=== PATIENT | female | born 1960 | race Caucasian/White ===

== ENCOUNTER 2025-02-08 15:31 | Inpatient (IN) | payer OTHER, SELFPAY ==
[2025-02-08 15:50] VITALS: BP 114/57; PULSE 95; RESP 16; TEMP 36.8; O2SAT 97; BMI 16.0
--- OUTSIDE RECORDS SUMMARY | 2025-02-08 17:47 | XMS_ITS | Encounter Summary ---
[facility] Organization 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 Name Role Phone Bruno Roberts Primary Care Provider [phone] Encounter Details Date Type Department Care Team (Late st Contact Info) Description 10/02/2024 Lab Requisition [facility] - Main Lab [address] [facility] [place] [address] Mansoor Kwok MD [address] [place] [phone] Essential (primary) hypertension Social History Tobacco Use Types Packs/Day Years Used Date Smoking Tobacco: Former Cigarettes 1 24.4 0 08/24/1982 - 01/22/2007 Smokeless Tobacco: Never Alcohol Use Standard Drinks/Week Comments Not Currently 0 (1 standard drink = 0.6 oz pur e alcohol) Interpersonal Safety Answer Date Record ed Physical Abuse 09/17/2024 Verbal Abuse 09/17/2024 Comments Unknown Sex and Gender Information Value Date Recorded Sex Assigned at Female 09/16/2024 11:04 PM EST Legal Sex Female 3:54 PM EST Gender Identity Female 09/16/2024 11:04 PM EST Sexual Orientation Straight 09/16/2024 11 :04 PM EST documented as of this encounter Plan of Treatment Upcoming Encounters Date Type Department Care Team (Late st Contact Info) Description 03/14/2025 3:00 PM EDT Office Visit Adult Medicine [facility] [address] [place] [phone] Bruno Roberts PA [address] [place] [address] 04/12/2025 2:10 PM EDT Appointment Radiology Department - [address] [phone] documented as of this encounter Visit Diagnoses Diagnosis Essential (primary) hypertension Unspecified essential hypertension Encounter for screening mammogram for breast cancer documented in this encounter Care Teams Aquaculture Worker Relationship Specialty Start Date End Date Bruno Roberts PA [address] [place] [id number] PCP - General Internal Medicine 09/16/24 documented as of this encounter
[2025-02-08] MEDS: hydrOXYzine HCL 25 MG TABLET PO (18:09)
--- NOTE | 2025-02-08 18:48 | PC.ADMIT ---
Pt arrived to the unit at 1536 from [facility] via stretcher. Skin/safety performed and unremarkable, vitals obtained and pt oriented to unit. Pt has a signed and accepted CV and is on 15min checks. Pt reports she is crawling out of her skin with anxiety and states ?I just don?t know what to do with myself?. Pt was brought to [facility] ED by her friend/housemate with concerns the pts was anxious and restless with increased agitation. Pt was admitted to inpatient psychiatric facility in [place], [place] last month for similar presentation to which pt reports ?they switched all my meds, took me off everything and just gave me stuff for anxiety. Maybe I?m just confused, I?m not really sure? This does not appear to be the case according to med list acquired from [place], [place]. Pt in fact had numerous medications filled on 02/06/25.? Pt presents as nervous, suspicious and apprehensive. She reports ?not knowing what to do with myself? and states ?I am crawling out of my skin?. She rates her anxiety 9/10, depression /10 and denies SI/HI/AVH. She also states her sleep and appetite have been poor and believes she has lost ?about 30lbs since August?. Tox screen negative and she is not a smoker. She denies medical issues but is currently prescribed midodrine. BP on admission 114/57.? Her admission is complete, other than signing BELIA?s, safety tool, and treatment plan.?
[2025-02-08 20:00] VITALS: BP 108/64; PULSE 100; RESP 16; TEMP 36.4; O2SAT 100
[2025-02-08] MEDS: clonazePAM 1 MG TABLET PO (20:13)
[2025-02-08] MEDS: lamoTRIgine 25 MG TABLET PO (20:14)
[2025-02-08] MEDS: lamoTRIgine 25 MG TABLET 150 MG PO (20:14)
[2025-02-08] MEDS: Mirtazapine 7.5 MG TABLET PO (20:15)
[2025-02-08] MEDS: traZODone HCL 50 MG TABLET PO (23:11)
[2025-02-09] MEDS: traZODone HCL 50 MG TABLET PO ×2 (01:33→20:38)
[2025-02-09] MEDS: hydrOXYzine HCL 25 MG TABLET PO ×2 (01:33→09:25)
[2025-02-09 08:00] VITALS: BP 109/55; PULSE 100; RESP 16; TEMP 36.4; O2SAT 100
[2025-02-09 08:23] LABS: Estimated Average Glucose 126 mg/dL; Total Hemoglobin (HGBA1C) 3274.8842 umol/L
[2025-02-09 08:42] LABS: Cholesterol 170 mg/dL (<200); HDL Cholesterol 53 mg/dL (>40); LDL Cholesterol Calculated 105 mg/dL (<100); Magnesium 2.5 mg/dL (1.6-2.6); Triglycerides 64 mg/dL (<150)
[2025-02-09] MEDS: Sertraline HCL 100 MG TABLET 200 MG PO (08:44)
[2025-02-09 08:45] VITALS: BP 109/55
[2025-02-09] MEDS: lamoTRIgine 25 MG TABLET 150 MG PO ×2 (08:45→20:39)
[2025-02-09] MEDS: Venlafaxine HCl ER 37.5 MG CAP.ER.24H PO (08:45)
[2025-02-09] MEDS: Midodrine HCl 2.5 MG TABLET PO ×3 (08:45→17:13)
[2025-02-09] MEDS: ARIPiprazole 5 MG TABLET PO (08:45)
[2025-02-09] MEDS: buPROPion HCl XL 300 MG TAB.ER.24H PO (08:45)
[2025-02-09] MEDS: lamoTRIgine 25 MG TABLET PO ×2 (08:46→20:38)
[2025-02-09 08:59] LABS: Free T4 (Free Thyroxine) 1.24 ng/dL (0.71-1.85); Thyroid Stimulating Hormone 1.42 uIU/mL (0.32-4.0)
[2025-02-09 09:10] LABS: Folate 9.2 ng/mL (> or = 4.0); Vitamin B12 758 pg/mL (200-900)
--- NOTE | 2025-02-09 09:22 | P.CONHOSP_ITS ---
History of Present Illness Data of Consult Service Date: 02/09/25 Primary Care Provider: Unknown Physician HPI Reason for consult: Medical evaluation 64-year-old female with a past medical history of anxiety and depression is admitted to [facility] after increased anxiety, restlessness and lack of sleep. Patient reports she was inpatient psych, was discharged in was unable to get her medications as prescribed, she represents for treatment of increased depression and anxiety. She denies any medical conditions, reports a history of a fractured elbow with a repair. On exam she is alert and cooperative, denies any shortness of breath, dizziness lightheadedness or any other concerning symptoms. Denies any headaches. She reports she did not sleep last night as she had difficulty with the new environment. At [facility] ED her EKG was stable with no ischemia, and if negative tox screen, negative UA, CBC and BMP were all within normal limits. Review of Systems Review of Systems: Denies any shortness of breath, chest pain, dizziness, lightheadedness, abdominal pain or discomfort, nausea vomiting or diarrhea PMFSH Social History Household Members: Friend(s) Housing: Apartment Do you presently have visiting nurse or other home services: No Patient Tobacco Use Status: Never used Tobacco Currently Displaying Signs/Symptoms of Drug Intoxication Withdrawal: No Have you been hit, kicked, punched, or otherwise hurt by someone within the past year? If so, by whom?: No Do you feel safe in your current relationship?: No Is there a partner from a previous relationship who is making you feel unsafe now?: No Are you made to feel afraid or neglected: No Spiritual Healthcare Practices: Mosque Advance Directives: No Advance Directives Information Provided: Yes Do you have thoughts of harming others: None Do you have a plan to hurt others: No Plan Recently lost weight without trying: Yes How much weight loss: 24-33 pounds Eating poorly because of decreased appetite: Yes Nutrition screen score: 6 Nutrition Risks: Poor intake 0-25% >4 days Patient : No : No Poor oral hygiene: No Meds Allergies Allergy/AdvReac Type Severity Reaction Status Date / Time No Known Allergies Allergy Verified 02/08/25 10:36 Active Medications: Current Medications Acetaminophen (Acetaminophen 325 Mg Tablet) 650 mg PO Q6H PRN PRN Reason: Headache/Pain, Scale 1-10 Al Hydroxide/Mg Hydroxide (Magnesium Hydrox/Alum Hydrox 30 Ml Oral.Susp) 30 ml PO Q6H PRN PRN Reason: Heartburn/Nausea Aripiprazole (Aripiprazole 5 Mg Tablet) 5 mg PO DAILY [facility] Last Admin: 02/09/25 08:45 Dose: 5 mg Bupropion HCl (Bupropion Hcl Xl 300 Mg Tab.Er.24h) 300 mg PO DAILY [facility] Last Admin: 02/09/25 08:45 Dose: 300 mg Clonazepam (Clonazepam 1 Mg Tablet) 1 mg PO TID PRN PRN Reason: Anxiety Last Admin: 02/08/25 20:13 Dose: 1 mg Hydroxyzine HCl (Hydroxyzine Hcl 25 Mg Tablet) 25 mg PO Q6H PRN PRN Reason: mild anxiety Last Admin: 02/09/25 01:33 Dose: 25 mg Lamotrigine (Lamotrigine 25 Mg Tablet) 150 mg PO BID [facility] Last Admin: 02/09/25 08:45 Dose: 150 mg Lamotrigine (Lamotrigine 25 Mg Tablet) 25 mg PO BID [facility] Last Admin: 02/09/25 08:46 Dose: 25 mg Magnesium Hydroxide (Milk Of Magnesia 30 Ml Oral.Susp) 30 ml PO DAILY PRN PRN Reason: Constipation Midodrine (Midodrine Hcl 2.5 Mg Tablet) 2.5 mg PO TIDWM [facility] Last Admin: 02/09/25 08:45 Dose: 2.5 mg Mirtazapine (Mirtazapine 7.5 Mg Tablet) 7.5 mg PO BEDTIME [facility] Last Admin: 02/08/25 20:15 Dose: 7.5 mg Nicotine Polacrilex (Nicotine Polacrilex 2 Mg Gum) 4 mg BUCCAL Q2H PRN PRN Reason: Nicotine Cravings Sertraline HCl (Sertraline Hcl 100 Mg Tablet) 200 mg PO DAILY [facility] Last Admin: 02/09/25 08:44 Dose: 200 mg Trazodone HCl (Trazodone Hcl 50 Mg Tablet) 50 mg PO BEDTIME MRX1 PRN PRN Reason: Insomnia Last Admin: 02/09/25 01:33 Dose: 50 mg Venlafaxine HCl (Venlafaxine Hcl Er 37.5 Mg Cap.Er.24h) 37.5 mg PO DAILY [facility] Last Admin: 02/09/25 08:45 Dose: 37.5 mg Home Medications ?Medication ?Instructions ?Recorded ?Confirmed ?Last Taken ?Type aripiprazole 5 mg tablet 5 mg PO DAILY 02/08/2502/08 Unknown History bupropion HCl 300 mg 24 hr tablet, 300 mg PO QAM 02/0802/08/25 Unknown History extended release clonazepam 1 mg tablet 1 mg PO TID PRN Anxiety 01/2202/08/25 Unknown History lamotrigine 150 mg tablet 150 mg PO BID 02/08/2502/08 Unknown History lamotrigine 25 mg tablet 25 mg PO BID 02/08/25 Unknown History midodrine 2.5 mg tablet 2.5 mg PO TIDWM 02/08/25 Unknown History mirtazapine 7.5 mg tablet 7.5 mg PO BEDTIME 02/08/25 0 02/08/25 Unknown History sertraline 200 mg capsule 200 mg PO DAILY 02/08/25 Unknown History trazodone 50 mg tablet 50 mg PO BEDTIME 02/08/25 Unknown History venlafaxine 37.5 mg tablet 37.5 mg PO DAILY 02/08/25 0 02/08/25 Unknown History Physical Exam Vital Signs and Narrative: Vital Signs: Last Vital Signs Temp 97.6 F 02/08/25 20:00 Pulse 100 02/08/25 20:00 Resp 16 02/08/25 20:00 BP 109/55 L 02/09/25 08:45 Pulse Ox 100 02/08/25 20:00 O2 Del Method Room Air 02/08/25 20:00 BMI result Body Mass Index 16.0 Alert and oriented X3, able to give good history. Anxious. Cachetic female Neuro: CN II-X11 intact, no deficits, visual acuity intact EYES: PERRLA, EOM intact ENT: Hearing intact, lips moist Cardiac: S1 S2 RRR, No ectopy Pulmonary: lungs clear to auscultation, No increased WOB. Abdominal: BS active in all 4 quadrants, no guarding or tenderness MSK: Strength 5/5 upper and lower extremities : Deferred Extremities: No edema in lower extremities, PT and DP pulses palpable +2 Psych: mood stable, Anxious. Eyes darting around room, speech rapid. Skin: Warm and dry, Intact Results Labs Labs: Laboratory Results - last 24 hr 02/09/25 07:58 Estimat Average Glucose 126 Hemoglobin A1c % 6.0 Magnesium 2.5 Triglycerides 64 Cholesterol 170 LDL Cholesterol, Calc 105 H HDL Cholesterol 53 Vitamin B12 758 Folate 9.2 TSH 1.42 Free T4 1.24 Assessment and Plan (1) Major depressive disorder: Status: Acute Plan Depression and anxiety Treatment per psychiatric team Thank you for allowing me to participate in the care of this patient. Signing off at this time. Please reconsult of any acute concerns or issues arise
[2025-02-09] MEDS: clonazePAM 1 MG TABLET PO ×2 (10:34→20:39)
--- NOTE | 2025-02-09 11:04 | HO.PSYADMNOT ---
HPI Date of Service: 02/09/25 Chief Complaint: unspecified depressive disorder Sources of Information: patient interviewed, chart reviewed and crisis/core team assessment reviewed Additional Sources of Information: Seen 1145am HPI Subjective Notes: Lam Warning and Conditional Voluntary Healthcare Proxy: No Guardianship: No Medical Problems Affecting Mental Status: No Narrative: 64 yo female, hx of anxiety, depression, transfer from [facility] with reports of increase in symptoms with agitation. Pt and her room-mate tell crisis she has been agitated, unable to sit still. Recent admit to [facility] for similiar sx. Reports being off meds for 4-6 weeks. Review of regime with pt and she affirmed compliance with most of regime since [facility] discharge. She reports continuing Klonopin/Trazodone. She requested a voluntary admission to address med issues. Pt reports a history of depression/anxiety >10 years with sleep always having been a problem. Past Psychiatric History: IP: Hx of 2 admits OP: CC- Ann Kitchen MD, Malia Mcknight Trials: Affirms several trials Medical Evaluation Reviewed: Yes PMFSH Family History: Alcohol Use, Depression Social History: Born in [place]. family, raised in [place]. 2 brothers, one . Brother in [facility] with poor vision-pt tries to be helpful to him. 40 years, no children. 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 Enjoyed direct care a great deal. Now lives with a house mate, Natali Low. Substance History: Denies Trauma History: Affirms Diagnostics Vital Signs (24Hr): Vital Signs - 24 hr 02/08/25 15:50 02/08/25 20:00 02/09/25 08:00 Temperature 98.2 F 97.6 F 97.5 F Pulse Rate 95 100 100 Respiratory Rate 16 16 16 Blood Pressure 114/57 L 108/64 109/55 L Pulse Oximetry 97 100 100 Oxygen Delivery Method Room Air Room Air Room Air 02/09/25 08:45 Temperature Pulse Rate Respiratory Rate Blood Pressure 109/55 L Pulse Oximetry Oxygen Delivery Method BMI result Body Mass Index 16.0 Labs Labs: Laboratory Results - last 48 hr 02/09/25 07:58 Estimat Average Glucose 126 Hemoglobin A1c % 6.0 Magnesium 2.5 Triglycerides 64 Cholesterol 170 LDL Cholesterol, Calc 105 H HDL Cholesterol 53 Vitamin B12 758 Folate 9.2 TSH 1.42 Free T4 1.24 CBC 02/07 WNL CMP 02/07 WNL EKG EKG: reviewed EKG Comment: NSR QTc 408 ST and T wave abn, consider inferior ischemia and anterolateral ischemia Meds/Allergies Meds Home Medications ?Medication ?Instructions ?Recorded ?Confirmed ?Type aripiprazole 5 mg tablet 5 mg PO DAILY 02/08/25 02/08/25 History bupropion HCl 300 mg 24 hr tablet, 300 mg PO QAM 02/08/25 02/08/25 History extended release clonazepam 1 mg tablet 1 mg PO TID PRN Anxiety 02/08/25 02/08/25 History lamotrigine 150 mg tablet 150 mg PO BID 02/08/25 02/08/25 History lamotrigine 25 mg tablet 25 mg PO BID 02/08/25 02/08/25 History midodrine 2.5 mg tablet 2.5 mg PO TIDWM 02/08/25 02/08/25 History mirtazapine 7.5 mg tablet 7.5 mg PO BEDTIME 02/08/25 02/08/25 History sertraline 200 mg capsule 200 mg PO DAILY 02/08/25 02/08/25 History trazodone 50 mg tablet 50 mg PO BEDTIME 02/08/25 02/08/25 History venlafaxine 37.5 mg tablet 37.5 mg PO DAILY 02/08/25 02/08/25 History Allergies Allergies Allergy/AdvReac Type Severity Reaction Status Date / Time No Known Allergies Allergy Verified 02/08/25 10:36 Mental Status Exam Mental Status Exam Patient Appearance: Fatigued Patient Orientation: Person, Place, Time and Situation Level of Consciousness: Alert Patient Behavior: Appropriate, Talkative and Cooperative Mood Description: Withdrawn, Depressed and Anxious Affect Description: Flat Patient Cognition Impaired: No Ability to Follow Directions: Good Speech Pattern: Spontaneous Speech Memory Description: Episodic Impaired Hallucinations: None Delusions: Not Present Perceptual Disturbances: Depersonalization Thought Process: Rumination Thought Content: positive for Circumstantial, positive for Perseveration and positive for Suicidal Ideation (denies) Depressive Symptoms: Increased Anxiety and Loss of Energy Judgement: Fair Assessment & Plan Assessment & Plan (1) Major depressive disorder: Status: Acute Code(s): F32.9 - Major depressive disorder, single episode, unspecified Plan Admit, CV, 15 minute checks Diagnostics as needed Collateral Contacts Encourage full milieu to increase strength in coping Continue current regime today Patient educated on: medication risk/benefits Reason for continued inpatient stay Substantial Risk for: rapid decompensation Statement Statement: I have reviewed the history and physical and performed a pertinent examination on my patient. No changes have occurred unless specified. If the History and Physical was not performed prior to admission, the Hospitalist's service will be consulted for completing the admission physical. Time Spent With Patient Time: Total time managing care of this patient today ____ minutes.
[2025-02-09 12:37] VITALS: BP 113/76
[2025-02-09 17:13] VITALS: BP 110/72
[2025-02-09 20:00] VITALS: BP 118/60; PULSE 86; RESP 16; TEMP 36.1; O2SAT 97
[2025-02-09] MEDS: Mirtazapine 7.5 MG TABLET PO (20:38)
[2025-02-10 08:00] VITALS: BP 103/53; PULSE 62; RESP 16; TEMP 36.7; O2SAT 97
[2025-02-10 09:33] VITALS: BP 103/53
[2025-02-10] MEDS: buPROPion HCl XL 300 MG TAB.ER.24H PO (09:33)
[2025-02-10] MEDS: Sertraline HCL 100 MG TABLET 200 MG PO (09:33)
[2025-02-10] MEDS: Midodrine HCl 2.5 MG TABLET PO ×3 (09:33→19:27)
[2025-02-10] MEDS: lamoTRIgine 25 MG TABLET PO ×2 (09:34→20:48)
[2025-02-10] MEDS: lamoTRIgine 25 MG TABLET 150 MG PO ×2 (09:34→20:47)
[2025-02-10] MEDS: Venlafaxine HCl ER 37.5 MG CAP.ER.24H PO (09:34)
[2025-02-10] MEDS: ARIPiprazole 5 MG TABLET PO (09:34)
[2025-02-10] MEDS: clonazePAM 1 MG TABLET PO ×2 (09:36→20:50)
[2025-02-10 13:03] VITALS: BP 112/57
--- NOTE | 2025-02-10 15:17 | P.PNPSI_ITS ---
Subjective Subjective Date of Service: 02/10/25 Reason For Visit: unspecified depressive disorder Subjective Notes: Conditional Voluntary Healthcare Proxy: No Guardianship: No Medical Problems Affecting Mental Status: No Interim History: Review of medications, rationale, efficacy. Discussed DC of Venlafaxine and increase of Mirtazapine which pt was agreeable with Medication Compliance: Yes Side effects from medications: No Attending Groups: Intermittent Review of Systems Acute medical concerns: No Medical Review of Systems: unchanged Review of Systems Review of Systems anxiety Mental Status Exam Mental Status Exam Patient Appearance: Fatigued Patient Orientation: Person, Place, Time and Situation Level of Consciousness: Alert Patient Behavior: Appropriate, Talkative and Cooperative Mood Description: Withdrawn, Depressed and Anxious Affect Description: Flat Patient Cognition Impaired: No Ability to Follow Directions: Good Speech Pattern: Spontaneous Speech Memory Description: Episodic Impaired Hallucinations: None Delusions: Not Present Perceptual Disturbances: Depersonalization Thought Process: Rumination Thought Content: positive for Circumstantial, positive for Perseveration and positive for Suicidal Ideation (denies) Depressive Symptoms: Increased Anxiety and Loss of Energy Judgement: Fair Diagnostics Vital Signs (24Hr): Vital Signs - 24 hr 02/09/25 17:13 02/09/25 20:00 02/10/25 08:00 Temperature 96.9 F 98.1 F Pulse Rate 86 62 Respiratory Rate 16 16 Blood Pressure 110/72 118/60 103/53 L Pulse Oximetry 97 97 Oxygen Delivery Method Room Air Room Air 02/10/25 09:33 02/10/25 13:03 Temperature Pulse Rate Respiratory Rate Blood Pressure 103/53 L 112/57 L Pulse Oximetry Oxygen Delivery Method BMI result Body Mass Index 16.0 Labs Labs: Laboratory Results - last 48 hr 02/09/25 07:58 Estimat Average Glucose 126 Hemoglobin A1c % 6.0 Magnesium 2.5 Triglycerides 64 Cholesterol 170 LDL Cholesterol, Calc 105 H HDL Cholesterol 53 Vitamin B12 758 Folate 9.2 TSH 1.42 Free T4 1.24 Medications Medications Current Medications Acetaminophen (Acetaminophen 325 Mg Tablet) 650 mg PO Q6H PRN PRN Reason: Headache/Pain, Scale 1-10 Al Hydroxide/Mg Hydroxide (Magnesium Hydrox/Alum Hydrox 30 Ml Oral.Susp) 30 ml PO Q6H PRN PRN Reason: Heartburn/Nausea Aripiprazole (Aripiprazole 5 Mg Tablet) 5 mg PO DAILY [facility] Last Admin: 02/10/25 09:34 Dose: 5 mg Bupropion HCl (Bupropion Hcl Xl 300 Mg Tab.Er.24h) 300 mg PO DAILY [facility] Last Admin: 02/10/25 09:33 Dose: 300 mg Clonazepam (Clonazepam 1 Mg Tablet) 1 mg PO TID PRN PRN Reason: Anxiety Last Admin: 02/10/25 09:36 Dose: 1 mg Hydroxyzine HCl (Hydroxyzine Hcl 25 Mg Tablet) 25 mg PO Q6H PRN PRN Reason: mild anxiety Last Admin: 02/09/25 09:25 Dose: 25 mg Lamotrigine (Lamotrigine 25 Mg Tablet) 150 mg PO BID [facility] Last Admin: 02/10/25 09:34 Dose: 150 mg Lamotrigine (Lamotrigine 25 Mg Tablet) 25 mg PO BID [facility] Last Admin: 02/10/25 09:34 Dose: 25 mg Magnesium Hydroxide (Milk Of Magnesia 30 Ml Oral.Susp) 30 ml PO DAILY PRN PRN Reason: Constipation Midodrine (Midodrine Hcl 2.5 Mg Tablet) 2.5 mg PO TIDWM [facility] Last Admin: 02/10/25 13:03 Dose: 2.5 mg Mirtazapine (Mirtazapine 15 Mg Tablet) 15 mg PO BEDTIME [facility] Nicotine Polacrilex (Nicotine Polacrilex 2 Mg Gum) 4 mg BUCCAL Q2H PRN PRN Reason: Nicotine Cravings Sertraline HCl (Sertraline Hcl 100 Mg Tablet) 200 mg PO DAILY [facility] Last Admin: 02/10/25 09:33 Dose: 200 mg Trazodone HCl (Trazodone Hcl 50 Mg Tablet) 50 mg PO BEDTIME MRX1 PRN PRN Reason: Insomnia Last Admin: 02/09/25 20:38 Dose: 50 mg Allergies Allergies Allergy/AdvReac Type Severity Reaction Status Date / Time No Known Allergies Allergy Verified 02/08/25 10:36 Assessment & Plan Assessment & Plan (1) Major depressive disorder: Status: Acute Code(s): F32.9 - Major depressive disorder, single episode, unspecified Plan Admit, CV, 15 minute checks Diagnostics as needed Collateral Contacts Encourage full milieu to increase strength in coping Continue current regime today 02/10: Increase Mirtazapine to 15 mg HS DC Venlafaxine Reason for continued inpatient stay Substantial Risk for: rapid decompensation Time Spent With Patient Time: Total time managing care of this patient today ____ minutes.
[2025-02-10] MEDS: Milk of Magnesia 30 ML ORAL.SUSP PO (19:25)
[2025-02-10 19:27] VITALS: BP 110/65
[2025-02-10 20:00] VITALS: BP 111/67; PULSE 92; TEMP 36.6; O2SAT 99
[2025-02-10] MEDS: Mirtazapine 15 MG TABLET PO (20:48)
--- NOTE | 2025-02-11 05:51 | P.PNPSI_ITS ---
Subjective Subjective Date of Service: 02/11/25 Reason For Visit: unspecified depressive disorder Interim History: Pt seen and discussed with her team. Reports sleep is OK, she is less guarded today when talking in the milieu. Interested in working with elder services upon discharge for increased community connections. Discussed discharge goals and her belief that she does better if with others vs being alone. Medication Compliance: Yes Side effects from medications: No Attending Groups: Intermittent Review of Systems Acute medical concerns: No Review of Systems Review of Systems Reports feeling well. Mental Status Exam Mental Status Exam Patient Appearance: Appropriate Patient Orientation: Person, Place, Time and Situation Level of Consciousness: Alert Patient Behavior: Appropriate, Talkative and Cooperative Mood Description: Constricted and Anxious Affect Description: Flat Patient Cognition Impaired: No Ability to Follow Directions: Good Speech Pattern: Spontaneous Speech Memory Description: Episodic Impaired and Recent Impaired Hallucinations: None Delusions: Not Present Perceptual Disturbances: Depersonalization Thought Process: Rumination Thought Content: positive for Circumstantial, positive for Perseveration and positive for Suicidal Ideation (denies) Depressive Symptoms: Increased Anxiety and Loss of Energy Judgement: Fair Diagnostics Vital Signs (24Hr): Vital Signs - 24 hr 02/10/25 08:00 02/10/25 09:33 02/10/25 13:03 Temperature 98.1 F Pulse Rate 62 Respiratory Rate 16 Blood Pressure 103/53 L 103/53 L 112/57 L Pulse Oximetry 97 Oxygen Delivery Method Room Air 02/10/25 19:27 02/10/25 20:00 Temperature 97.9 F Pulse Rate 92 Respiratory Rate Blood Pressure 110/65 111/67 Pulse Oximetry 99 Oxygen Delivery Method Room Air BMI result Body Mass Index 16.0 Labs Labs: Laboratory Results - last 48 hr 02/09/25 07:58 Estimat Average Glucose 126 Hemoglobin A1c % 6.0 Magnesium 2.5 Triglycerides 64 Cholesterol 170 LDL Cholesterol, Calc 105 H HDL Cholesterol 53 Vitamin B12 758 Folate 9.2 TSH 1.42 Free T4 1.24 Medications Medications Current Medications Acetaminophen (Acetaminophen 325 Mg Tablet) 650 mg PO Q6H PRN PRN Reason: Headache/Pain, Scale 1-10 Al Hydroxide/Mg Hydroxide (Magnesium Hydrox/Alum Hydrox 30 Ml Oral.Susp) 30 ml PO Q6H PRN PRN Reason: Heartburn/Nausea Aripiprazole (Aripiprazole 5 Mg Tablet) 5 mg PO DAILY [facility] Last Admin: 02/10/25 09:34 Dose: 5 mg Bupropion HCl (Bupropion Hcl Xl 300 Mg Tab.Er.24h) 300 mg PO DAILY [facility] Last Admin: 02/10/25 09:33 Dose: 300 mg Clonazepam (Clonazepam 1 Mg Tablet) 1 mg PO TID PRN PRN Reason: Anxiety Last Admin: 02/10/25 20:50 Dose: 1 mg Hydroxyzine HCl (Hydroxyzine Hcl 25 Mg Tablet) 25 mg PO Q6H PRN PRN Reason: mild anxiety Last Admin: 02/09/25 09:25 Dose: 25 mg Lamotrigine (Lamotrigine 25 Mg Tablet) 150 mg PO BID [facility] Last Admin: 02/10/25 20:47 Dose: 150 mg Lamotrigine (Lamotrigine 25 Mg Tablet) 25 mg PO BID [facility] Last Admin: 02/10/25 20:48 Dose: 25 mg Magnesium Hydroxide (Milk Of Magnesia 30 Ml Oral.Susp) 30 ml PO DAILY PRN PRN Reason: Constipation Last Admin: 02/10/25 19:25 Dose: 30 ml Midodrine (Midodrine Hcl 2.5 Mg Tablet) 2.5 mg PO TIDWM [facility] Last Admin: 02/10/25 19:27 Dose: 2.5 mg Mirtazapine (Mirtazapine 15 Mg Tablet) 15 mg PO BEDTIME [facility] Last Admin: 02/10/25 20:48 Dose: 15 mg Nicotine Polacrilex (Nicotine Polacrilex 2 Mg Gum) 4 mg BUCCAL Q2H PRN PRN Reason: Nicotine Cravings Sertraline HCl (Sertraline Hcl 100 Mg Tablet) 200 mg PO DAILY [facility] Last Admin: 02/10/25 09:33 Dose: 200 mg Trazodone HCl (Trazodone Hcl 50 Mg Tablet) 50 mg PO BEDTIME MRX1 PRN PRN Reason: Insomnia Last Admin: 02/09/25 20:38 Dose: 50 mg Allergies Allergies Allergy/AdvReac Type Severity Reaction Status Date / Time No Known Allergies Allergy Verified 02/08/25 10:36 Assessment & Plan Assessment & Plan (1) Major depressive disorder: Status: Acute Code(s): F32.9 - Major depressive disorder, single episode, unspecified Plan Admit, CV, 15 minute checks Diagnostics as needed Collateral Contacts Encourage full milieu to increase strength in coping Continue current regime today 02/10: Increase Mirtazapine to 15 mg HS DC Venlafaxine 02/11: Continue tx Reason for continued inpatient stay Substantial Risk for: rapid decompensation Time Spent With Patient Time: Total time managing care of this patient today ____ minutes.
[2025-02-11 07:58] VITALS: BP 101/59; PULSE 80; RESP 18; TEMP 36.6; O2SAT 96
[2025-02-11] MEDS: lamoTRIgine 25 MG TABLET 150 MG PO ×2 (08:13→20:45)
[2025-02-11] MEDS: lamoTRIgine 25 MG TABLET PO ×2 (08:13→20:45)
[2025-02-11] MEDS: Midodrine HCl 2.5 MG TABLET PO ×3 (08:14→17:37)
[2025-02-11] MEDS: ARIPiprazole 5 MG TABLET PO (08:15)
[2025-02-11] MEDS: buPROPion HCl XL 300 MG TAB.ER.24H PO (08:15)
[2025-02-11] MEDS: Sertraline HCL 100 MG TABLET 200 MG PO (08:15)
[2025-02-11 12:24] VITALS: BP 111/59; PULSE 82
[2025-02-11 17:37] VITALS: BP 103/51
[2025-02-11 20:00] VITALS: BP 110/55; PULSE 87; RESP 18; TEMP 36.8; O2SAT 100
[2025-02-11] MEDS: clonazePAM 1 MG TABLET PO (20:45)
[2025-02-11] MEDS: Mirtazapine 15 MG TABLET PO (20:45)
[2025-02-11] MEDS: Milk of Magnesia 30 ML ORAL.SUSP PO (20:49)
[2025-02-12] MEDS: traZODone HCL 50 MG TABLET PO ×2 (00:12→22:06)
--- NOTE | 2025-02-12 05:32 | HO.PSYCHPN ---
Subjective Subjective Date of Service: 02/12/25 Reason For Visit: unspecified depressive disorder Interim History: Visable in milieu today. Denies sx of concern. Increasing integration in milieu and with groups of peers. Medication Compliance: Yes Side effects from medications: No Attending Groups: Intermittent Review of Systems Acute medical concerns: No Review of Systems Review of Systems Denies, I feel ok Mental Status Exam Mental Status Exam Patient Appearance: Appropriate Patient Orientation: Person, Place, Time and Situation Level of Consciousness: Alert Patient Behavior: Appropriate, Talkative and Cooperative Mood Description: Constricted and Anxious Affect Description: Flat Patient Cognition Impaired: No Ability to Follow Directions: Good Speech Pattern: Spontaneous Speech Memory Description: Episodic Impaired and Recent Impaired Hallucinations: None Delusions: Not Present Perceptual Disturbances: Depersonalization Thought Process: Rumination Thought Content: positive for Circumstantial, positive for Perseveration and positive for Suicidal Ideation (denies) Depressive Symptoms: Increased Anxiety and Loss of Energy Judgement: Fair Diagnostics Vital Signs (24Hr): Vital Signs - 24 hr 02/11/25 07:58 02/11/25 12:24 02/11/25 17:37 Temperature 97.9 F Pulse Rate 80 82 Respiratory Rate 18 Blood Pressure 101/59 L 111/59 L 103/51 L Pulse Oximetry 96 Oxygen Delivery Method Room Air 02/11/25 20:00 Temperature 98.2 F Pulse Rate 87 Respiratory Rate 18 Blood Pressure 110/55 L Pulse Oximetry 100 Oxygen Delivery Method Room Air BMI result Body Mass Index 16.0 Medications Medications Current Medications Acetaminophen (Acetaminophen 325 Mg Tablet) 650 mg PO Q6H PRN PRN Reason: Headache/Pain, Scale 1-10 Al Hydroxide/Mg Hydroxide (Magnesium Hydrox/Alum Hydrox 30 Ml Oral.Susp) 30 ml PO Q6H PRN PRN Reason: Heartburn/Nausea Aripiprazole (Aripiprazole 5 Mg Tablet) 5 mg PO DAILY [facility] Last Admin: 02/11/25 08:15 Dose: 5 mg Bupropion HCl (Bupropion Hcl Xl 300 Mg Tab.Er.24h) 300 mg PO DAILY [facility] Last Admin: 02/11/25 08:15 Dose: 300 mg Clonazepam (Clonazepam 1 Mg Tablet) 1 mg PO TID PRN PRN Reason: Anxiety Last Admin: 02/11/25 20:45 Dose: 1 mg Hydroxyzine HCl (Hydroxyzine Hcl 25 Mg Tablet) 25 mg PO Q6H PRN PRN Reason: mild anxiety Last Admin: 02/09/25 09:25 Dose: 25 mg Lamotrigine (Lamotrigine 25 Mg Tablet) 150 mg PO BID [facility] Last Admin: 02/11/25 20:45 Dose: 150 mg Lamotrigine (Lamotrigine 25 Mg Tablet) 25 mg PO BID [facility] Last Admin: 02/11/25 20:45 Dose: 25 mg Magnesium Hydroxide (Milk Of Magnesia 30 Ml Oral.Susp) 30 ml PO DAILY PRN PRN Reason: Constipation Last Admin: 02/11/25 20:49 Dose: 30 ml Midodrine (Midodrine Hcl 2.5 Mg Tablet) 2.5 mg PO TIDWM [facility] Last Admin: 02/11/25 17:37 Dose: 2.5 mg Mirtazapine (Mirtazapine 15 Mg Tablet) 15 mg PO BEDTIME [facility] Last Admin: 02/11/25 20:45 Dose: 15 mg Nicotine Polacrilex (Nicotine Polacrilex 2 Mg Gum) 4 mg BUCCAL Q2H PRN PRN Reason: Nicotine Cravings Sertraline HCl (Sertraline Hcl 100 Mg Tablet) 200 mg PO DAILY [facility] Last Admin: 02/11/25 08:15 Dose: 200 mg Trazodone HCl (Trazodone Hcl 50 Mg Tablet) 50 mg PO BEDTIME MRX1 PRN PRN Reason: Insomnia Last Admin: 02/12/25 00:12 Dose: 50 mg Allergies Allergies Allergy/AdvReac Type Severity Reaction Status Date / Time No Known Allergies Allergy Verified 02/08/25 10:36 Assessment & Plan Assessment & Plan (1) Major depressive disorder: Status: Acute Code(s): F32.9 - Major depressive disorder, single episode, unspecified Plan Admit, CV, 15 minute checks Diagnostics as needed Collateral Contacts Encourage full milieu to increase strength in coping Continue current regime today 02/10: Increase Mirtazapine to 15 mg HS DC Venlafaxine 02/12: Continue tx. Team will do a MOCA on 02/13 Reason for continued inpatient stay Substantial Risk for: rapid decompensation Time Spent With Patient Time: Total time managing care of this patient today ____ minutes.
[2025-02-12 08:00] VITALS: BP 96/47; PULSE 69; RESP 18; TEMP 36.8; O2SAT 96
[2025-02-12] MEDS: buPROPion HCl XL 300 MG TAB.ER.24H PO (08:30)
[2025-02-12] MEDS: lamoTRIgine 25 MG TABLET 150 MG PO ×2 (08:30→22:05)
[2025-02-12] MEDS: lamoTRIgine 25 MG TABLET PO ×2 (08:30→22:06)
[2025-02-12] MEDS: ARIPiprazole 5 MG TABLET PO (08:30)
[2025-02-12] MEDS: Midodrine HCl 2.5 MG TABLET PO ×3 (08:30→17:28)
[2025-02-12] MEDS: Sertraline HCL 100 MG TABLET 200 MG PO (08:49)
[2025-02-12] MEDS: Acetaminophen 325 MG TABLET 650 MG PO (11:54)
[2025-02-12 12:04] VITALS: BP 107/53; RESP 82
[2025-02-12 20:00] VITALS: BP 113/61; PULSE 16; RESP 16; TEMP 36.4; O2SAT 100
[2025-02-12] MEDS: Mirtazapine 15 MG TABLET PO (22:06)
[2025-02-12] MEDS: clonazePAM 1 MG TABLET PO (22:06)
[2025-02-13 08:00] VITALS: BP 112/64; PULSE 89; RESP 16; TEMP 36.9; O2SAT 98
[2025-02-13 09:12] VITALS: BP 112/64
[2025-02-13] MEDS: lamoTRIgine 25 MG TABLET 150 MG PO ×2 (09:12→21:51)
[2025-02-13] MEDS: Midodrine HCl 2.5 MG TABLET PO ×2 (09:12→13:20)
[2025-02-13] MEDS: Sertraline HCL 100 MG TABLET 200 MG PO (09:12)
[2025-02-13] MEDS: ARIPiprazole 5 MG TABLET PO (09:12)
[2025-02-13] MEDS: buPROPion HCl XL 300 MG TAB.ER.24H PO (09:13)
[2025-02-13] MEDS: lamoTRIgine 25 MG TABLET PO ×2 (09:13→21:55)
[2025-02-13] MEDS: clonazePAM 1 MG TABLET PO ×2 (09:18→21:52)
[2025-02-13 13:20] VITALS: BP 110/62
--- NOTE | 2025-02-13 15:45 | HO.PSYCHPN ---
Subjective Subjective Date of Service: 02/13/25 Reason For Visit: unspecified depressive disorder Subjective Notes: Conditional Voluntary Healthcare Proxy: No Guardianship: No Interim History: Discussed discharge this week with pt. She agrees, I am feeling better . Reports she wants more social involvement on discharge-identifies [facility] and [employer]. I would like to learn crafts and how to balance my checkbook. Denies SI,HI,AH, VH. Reports regime to be helpful at this time. Medication Compliance: Yes Side effects from medications: No Attending Groups: Yes Review of Systems Acute medical concerns: No Review of Systems Review of Systems I feel well, thank you. Mental Status Exam Mental Status Exam Patient Appearance: Appropriate Patient Orientation: Person, Place, Time and Situation Level of Consciousness: Alert Patient Behavior: Appropriate, Talkative and Cooperative Mood Description: Constricted Affect Description: Flat Patient Cognition Impaired: No Ability to Follow Directions: Good Speech Pattern: Spontaneous Speech Memory Description: Episodic Impaired and Recent Impaired Hallucinations: None Delusions: Not Present Perceptual Disturbances: Depersonalization Thought Process: Rumination Thought Content: positive for Circumstantial, positive for Perseveration and positive for Suicidal Ideation (denies) Depressive Symptoms: Increased Anxiety and Loss of Energy Judgement: Fair Diagnostics Vital Signs (24Hr): Vital Signs - 24 hr 02/12/25 20:00 02/13/25 08:00 02/13/25 09:12 Temperature 97.6 F 98.5 F Pulse Rate 16 L 89 Respiratory Rate 16 16 Blood Pressure 113/61 112/64 112/64 Pulse Oximetry 100 98 Oxygen Delivery Method Room Air Room Air 02/13/25 13:20 Temperature Pulse Rate Respiratory Rate Blood Pressure 110/62 Pulse Oximetry Oxygen Delivery Method BMI result Body Mass Index 16.0 Medications Medications Current Medications Acetaminophen (Acetaminophen 325 Mg Tablet) 650 mg PO Q6H PRN PRN Reason: Headache/Pain, Scale 1-10 Last Admin: 02/12/25 11:54 Dose: 650 mg Al Hydroxide/Mg Hydroxide (Magnesium Hydrox/Alum Hydrox 30 Ml Oral.Susp) 30 ml PO Q6H PRN PRN Reason: Heartburn/Nausea Aripiprazole (Aripiprazole 5 Mg Tablet) 5 mg PO DAILY [facility] Last Admin: 02/13/25 09:12 Dose: 5 mg Bupropion HCl (Bupropion Hcl Xl 300 Mg Tab.Er.24h) 300 mg PO DAILY [facility] Last Admin: 02/13/25 09:13 Dose: 300 mg Clonazepam (Clonazepam 1 Mg Tablet) 1 mg PO TID PRN PRN Reason: Anxiety Last Admin: 02/13/25 09:18 Dose: 1 mg Hydroxyzine HCl (Hydroxyzine Hcl 25 Mg Tablet) 25 mg PO Q6H PRN PRN Reason: mild anxiety Last Admin: 02/09/25 09:25 Dose: 25 mg Lamotrigine (Lamotrigine 25 Mg Tablet) 150 mg PO BID [facility] Last Admin: 02/13/25 09:12 Dose: 150 mg Lamotrigine (Lamotrigine 25 Mg Tablet) 25 mg PO BID [facility] Last Admin: 02/13/25 09:13 Dose: 25 mg Magnesium Hydroxide (Milk Of Magnesia 30 Ml Oral.Susp) 30 ml PO DAILY PRN PRN Reason: Constipation Last Admin: 02/11/25 20:49 Dose: 30 ml Midodrine (Midodrine Hcl 2.5 Mg Tablet) 2.5 mg PO TIDWM [facility] Last Admin: 02/13/25 13:20 Dose: 2.5 mg Mirtazapine (Mirtazapine 15 Mg Tablet) 15 mg PO BEDTIME [facility] Last Admin: 02/12/25 22:06 Dose: 15 mg Nicotine Polacrilex (Nicotine Polacrilex 2 Mg Gum) 4 mg BUCCAL Q2H PRN PRN Reason: Nicotine Cravings Sertraline HCl (Sertraline Hcl 100 Mg Tablet) 200 mg PO DAILY [facility] Last Admin: 02/13/25 09:12 Dose: 200 mg Trazodone HCl (Trazodone Hcl 50 Mg Tablet) 50 mg PO BEDTIME MRX1 PRN PRN Reason: Insomnia Last Admin: 02/12/25 22:06 Dose: 50 mg Allergies Allergies Allergy/AdvReac Type Severity Reaction Status Date / Time No Known Allergies Allergy Verified 02/08/25 10:36 Assessment & Plan Assessment & Plan (1) Major depressive disorder: Status: Acute Code(s): F32.9 - Major depressive disorder, single episode, unspecified Plan Admit, CV, 15 minute checks Diagnostics as needed Collateral Contacts Encourage full milieu to increase strength in coping Continue current regime today 02/10: Increase Mirtazapine to 15 mg HS DC Venlafaxine 02/13: Continue treatment, DC planning Reason for continued inpatient stay Substantial Risk for: rapid decompensation Time Spent With Patient Time: Total time managing care of this patient today ____ minutes.
[2025-02-13 20:00] VITALS: BP 112/63; PULSE 86; RESP 16; TEMP 36.6; O2SAT 99
[2025-02-13] MEDS: Mirtazapine 15 MG TABLET PO (21:52)
[2025-02-13] MEDS: traZODone HCL 50 MG TABLET PO (21:55)
[2025-02-14 07:43] VITALS: BP 106/53; PULSE 92; RESP 18; TEMP 37.2; O2SAT 97
[2025-02-14] MEDS: lamoTRIgine 25 MG TABLET 150 MG PO ×2 (07:59→21:04)
[2025-02-14] MEDS: ARIPiprazole 5 MG TABLET PO (08:00)
[2025-02-14] MEDS: lamoTRIgine 25 MG TABLET PO ×2 (08:00→21:05)
[2025-02-14] MEDS: Midodrine HCl 2.5 MG TABLET PO ×3 (08:00→17:13)
[2025-02-14] MEDS: Sertraline HCL 100 MG TABLET 200 MG PO (08:00)
[2025-02-14] MEDS: buPROPion HCl XL 300 MG TAB.ER.24H PO (08:00)
[2025-02-14] MEDS: Acetaminophen 325 MG TABLET 650 MG PO (08:35)
[2025-02-14] MEDS: clonazePAM 1 MG TABLET PO ×2 (08:37→21:04)
--- NOTE | 2025-02-14 11:01 | P.PNPSI_ITS ---
Subjective Subjective Date of Service: 02/14/25 Reason For Visit: unspecified depressive disorder Subjective Notes: Conditional Voluntary Healthcare Proxy: No Guardianship: No Medical Problems Affecting Mental Status: No Interim History: Pt reports she is enjoying her peers in the milieu and going to some groups. She denies SI,HI,AH, VH. She reports her med regime to be effective and without adverse effects MOCA done with team. She reports looking forward to going home, feeling improved, yet hopes she can have senior services in the community to continue activities. Medication Compliance: Yes Side effects from medications: No Attending Groups: Yes Review of Systems Acute medical concerns: No Review of Systems Review of Systems I feel good, thank you. Mental Status Exam Mental Status Exam Patient Appearance: Appropriate Patient Orientation: Person, Place, Time and Situation Level of Consciousness: Alert Patient Behavior: Appropriate, Talkative and Cooperative Mood Description: Constricted Affect Description: Flat Patient Cognition Impaired: No Ability to Follow Directions: Good Speech Pattern: Spontaneous Speech Memory Description: Episodic Impaired and Recent Impaired Hallucinations: None Delusions: Not Present Perceptual Disturbances: Depersonalization Thought Process: Rumination Thought Content: positive for Circumstantial, positive for Perseveration and positive for Suicidal Ideation (denies) Depressive Symptoms: Increased Anxiety and Loss of Energy Judgement: Fair Diagnostics Vital Signs (24Hr): Vital Signs - 24 hr 02/13/25 13:20 02/13/25 20:00 02/14/25 07:43 Temperature 97.8 F 98.9 F Pulse Rate 86 92 Respiratory Rate 16 18 Blood Pressure 110/62 112/63 106/53 L Pulse Oximetry 99 97 Oxygen Delivery Method Room Air Room Air BMI result Body Mass Index 16.0 Medications Medications Current Medications Acetaminophen (Acetaminophen 325 Mg Tablet) 650 mg PO Q6H PRN PRN Reason: Headache/Pain, Scale 1-10 Last Admin: 02/14/25 08:35 Dose: 650 mg Al Hydroxide/Mg Hydroxide (Magnesium Hydrox/Alum Hydrox 30 Ml Oral.Susp) 30 ml PO Q6H PRN PRN Reason: Heartburn/Nausea Aripiprazole (Aripiprazole 5 Mg Tablet) 5 mg PO DAILY [facility] Last Admin: 02/14/25 08:00 Dose: 5 mg Bupropion HCl (Bupropion Hcl Xl 300 Mg Tab.Er.24h) 300 mg PO DAILY [facility] Last Admin: 02/14/25 08:00 Dose: 300 mg Clonazepam (Clonazepam 1 Mg Tablet) 1 mg PO TID PRN PRN Reason: Anxiety Last Admin: 02/14/25 08:37 Dose: 1 mg Hydroxyzine HCl (Hydroxyzine Hcl 25 Mg Tablet) 25 mg PO Q6H PRN PRN Reason: mild anxiety Last Admin: 02/09/25 09:25 Dose: 25 mg Lamotrigine (Lamotrigine 25 Mg Tablet) 150 mg PO BID [facility] Last Admin: 02/14/25 07:59 Dose: 150 mg Lamotrigine (Lamotrigine 25 Mg Tablet) 25 mg PO BID [facility] Last Admin: 02/14/25 08:00 Dose: 25 mg Magnesium Hydroxide (Milk Of Magnesia 30 Ml Oral.Susp) 30 ml PO DAILY PRN PRN Reason: Constipation Last Admin: 02/11/25 20:49 Dose: 30 ml Midodrine (Midodrine Hcl 2.5 Mg Tablet) 2.5 mg PO TIDWM [facility] Last Admin: 02/14/25 08:00 Dose: 2.5 mg Mirtazapine (Mirtazapine 15 Mg Tablet) 15 mg PO BEDTIME [facility] Last Admin: 02/13/25 21:52 Dose: 15 mg Nicotine Polacrilex (Nicotine Polacrilex 2 Mg Gum) 4 mg BUCCAL Q2H PRN PRN Reason: Nicotine Cravings Sertraline HCl (Sertraline Hcl 100 Mg Tablet) 200 mg PO DAILY [facility] Last Admin: 02/14/25 08:00 Dose: 200 mg Trazodone HCl (Trazodone Hcl 50 Mg Tablet) 50 mg PO BEDTIME MRX1 PRN PRN Reason: Insomnia Last Admin: 02/13/25 21:55 Dose: 50 mg Allergies Allergies Allergy/AdvReac Type Severity Reaction Status Date / Time No Known Allergies Allergy Verified 02/08/25 10:36 Assessment & Plan Assessment & Plan (1) Major depressive disorder: Status: Acute Code(s): F32.9 - Major depressive disorder, single episode, unspecified Plan Admit, CV, 15 minute checks Diagnostics as needed Collateral Contacts Encourage full milieu to increase strength in coping Continue current regime today 02/10: Increase Mirtazapine to 15 mg HS DC Venlafaxine 02/13: Continue treatment, DC planning 02/14: Continue treatment, DC 02/15. Reason for continued inpatient stay Substantial Risk for: rapid decompensation Time Spent With Patient Time: Total time managing care of this patient today ____ minutes.
[2025-02-14 12:15] VITALS: BP 109/61; PULSE 85
[2025-02-14 17:12] VITALS: BP 116/62; PULSE 64
[2025-02-14 20:00] VITALS: BP 112/55; PULSE 70; RESP 16; TEMP 36.4; O2SAT 99
[2025-02-14] MEDS: Mirtazapine 15 MG TABLET PO (21:05)
[2025-02-14] MEDS: traZODone HCL 50 MG TABLET PO (22:29)
[2025-02-15 07:59] VITALS: BP 109/56; PULSE 83; RESP 16; TEMP 36.6; O2SAT 95
[2025-02-15] MEDS: Sertraline HCL 100 MG TABLET 200 MG PO (08:54)
[2025-02-15] MEDS: ARIPiprazole 5 MG TABLET PO (08:54)
[2025-02-15] MEDS: buPROPion HCl XL 300 MG TAB.ER.24H PO (08:54)
[2025-02-15] MEDS: Midodrine HCl 2.5 MG TABLET PO ×3 (08:54→18:04)
[2025-02-15] MEDS: lamoTRIgine 25 MG TABLET PO (08:55)
[2025-02-15] MEDS: Acetaminophen 325 MG TABLET 650 MG PO (08:55)
[2025-02-15] MEDS: lamoTRIgine 25 MG TABLET 150 MG PO (08:55)
[2025-02-15] MEDS: clonazePAM 1 MG TABLET PO ×2 (09:00→21:11)
--- NOTE | 2025-02-15 10:18 | P.PNPSI_ITS ---
Subjective Subjective Date of Service: 02/15/25 Reason For Visit: unspecified depressive disorder Subjective Notes: Conditional Voluntary Healthcare Proxy: No Guardianship: No Medical Problems Affecting Mental Status: No Interim History: I woke up with a little depression and anxiety today. I don't know why, I think I am sad to leave, it is fun here and the people are nice to me. Pt dis cussed hoping she does not have to go back home just to be stuck inside and watching TV. Hopes for day programming and activities options. Full review of her meds, their purpose and potential SE. Asks for Trazodone every night as she reports it is helpful. Attending groups, interactive with peers. Planning a tentative discharge on 02/17. Medication Compliance: Yes Side effects from medications: Yes ( a twitch at times ?Abilify) Attending Groups: Yes Review of Systems Acute medical concerns: No Medical Review of Systems: unchanged Review of Systems Review of Systems Denies today Mental Status Exam Mental Status Exam Patient Appearance: Appropriate Patient Orientation: Person, Place, Time and Situation Level of Consciousness: Alert Patient Behavior: Appropriate, Talkative and Cooperative Mood Description: Constricted Affect Description: Flat Patient Cognition Impaired: No Ability to Follow Directions: Good Speech Pattern: Spontaneous Speech Memory Description: Episodic Impaired and Recent Impaired Hallucinations: None Delusions: Not Present Perceptual Disturbances: Depersonalization Thought Process: Rumination Thought Content: positive for Circumstantial, positive for Perseveration and positive for Suicidal Ideation (denies) Depressive Symptoms: Increased Anxiety and Loss of Energy Judgement: Fair Diagnostics Vital Signs (24Hr): Vital Signs - 24 hr 02/14/25 12:15 02/14/25 17:12 02/14/25 20:00 Temperature 97.5 F Pulse Rate 85 64 70 Respiratory Rate 16 Blood Pressure 109/61 116/62 112/55 L Pulse Oximetry 99 Oxygen Delivery Method Room Air 02/15/25 07:59 Temperature 97.8 F Pulse Rate 83 Respiratory Rate 16 Blood Pressure 109/56 L Pulse Oximetry 95 Oxygen Delivery Method BMI result Body Mass Index 16.0 Medications Medications Current Medications Acetaminophen (Acetaminophen 325 Mg Tablet) 650 mg PO Q6H PRN PRN Reason: Headache/Pain, Scale 1-10 Last Admin: 02/15/25 08:55 Dose: 650 mg Al Hydroxide/Mg Hydroxide (Magnesium Hydrox/Alum Hydrox 30 Ml Oral.Susp) 30 ml PO Q6H PRN PRN Reason: Heartburn/Nausea Aripiprazole (Aripiprazole 5 Mg Tablet) 5 mg PO DAILY [facility] Last Admin: 02/15/25 08:54 Dose: 5 mg Bupropion HCl (Bupropion Hcl Xl 300 Mg Tab.Er.24h) 300 mg PO DAILY [facility] Last Admin: 02/15/25 08:54 Dose: 300 mg Clonazepam (Clonazepam 1 Mg Tablet) 1 mg PO TID PRN PRN Reason: Anxiety Last Admin: 02/15/25 09:00 Dose: 1 mg Hydroxyzine HCl (Hydroxyzine Hcl 25 Mg Tablet) 25 mg PO Q6H PRN PRN Reason: mild anxiety Last Admin: 02/09/25 09:25 Dose: 25 mg Lamotrigine (Lamotrigine 25 Mg Tablet) 150 mg PO BID [facility] Last Admin: 02/15/25 08:55 Dose: 150 mg Lamotrigine (Lamotrigine 25 Mg Tablet) 25 mg PO BID [facility] Last Admin: 02/15/25 08:55 Dose: 25 mg Magnesium Hydroxide (Milk Of Magnesia 30 Ml Oral.Susp) 30 ml PO DAILY PRN PRN Reason: Constipation Last Admin: 02/11/25 20:49 Dose: 30 ml Midodrine (Midodrine Hcl 2.5 Mg Tablet) 2.5 mg PO TIDWM [facility] Last Admin: 02/15/25 08:54 Dose: 2.5 mg Mirtazapine (Mirtazapine 15 Mg Tablet) 15 mg PO BEDTIME [facility] Last Admin: 02/14/25 21:05 Dose: 15 mg Nicotine Polacrilex (Nicotine Polacrilex 2 Mg Gum) 4 mg BUCCAL Q2H PRN PRN Reason: Nicotine Cravings Sertraline HCl (Sertraline Hcl 100 Mg Tablet) 200 mg PO DAILY [facility] Last Admin: 02/15/25 08:54 Dose: 200 mg Trazodone HCl (Trazodone Hcl 50 Mg Tablet) 50 mg PO BEDTIME MRX1 PRN PRN Reason: Insomnia Last Admin: 02/14/25 22:29 Dose: 50 mg Allergies Allergies Allergy/AdvReac Type Severity Reaction Status Date / Time No Known Allergies Allergy Verified 02/08/25 10:36 Assessment & Plan Assessment & Plan (1) Major depressive disorder: Status: Acute Code(s): F32.9 - Major depressive disorder, single episode, unspecified Plan Admit, CV, 15 minute checks Diagnostics as needed Collateral Contacts Encourage full milieu to increase strength in coping Continue current regime today 02/10: Increase Mirtazapine to 15 mg HS DC Venlafaxine 02/13: Continue treatment, DC planning 02/15: Continue tx, DC 02/17 tentative Reason for continued inpatient stay Substantial Risk for: rapid decompensation Time Spent With Patient Time: Total time managing care of this patient today ____ minutes.
[2025-02-15 13:11] VITALS: BP 100/70
[2025-02-15 18:04] VITALS: BP 100/78
[2025-02-15 20:00] VITALS: BP 110/61; PULSE 80; TEMP 36.8; O2SAT 100
[2025-02-15] MEDS: Mirtazapine 15 MG TABLET PO (21:10)
[2025-02-15] MEDS: traZODone HCL 50 MG TABLET PO (21:11)
[2025-02-16 07:00] VITALS: BMI 18.8
[2025-02-16 08:00] VITALS: BP 121/58; PULSE 105; RESP 16; TEMP 36.9; O2SAT 94
[2025-02-16] MEDS: Midodrine HCl 2.5 MG TABLET PO ×3 (08:39→17:38)
[2025-02-16] MEDS: clonazePAM 1 MG TABLET PO (08:39)
[2025-02-16] MEDS: buPROPion HCl XL 300 MG TAB.ER.24H PO (08:39)
[2025-02-16] MEDS: Sertraline HCL 100 MG TABLET 200 MG PO (08:39)
[2025-02-16] MEDS: ARIPiprazole 5 MG TABLET PO (08:39)
[2025-02-16] MEDS: Acetaminophen 325 MG TABLET 650 MG PO (08:41)
[2025-02-16 13:32] VITALS: BP 110/64
--- NOTE | 2025-02-16 17:37 | HO.PSYCHPN ---
Subjective Subjective Date of Service: 02/16/25 Reason For Visit: unspecified depressive disorder Subjective Notes: Conditional Voluntary Healthcare Proxy: No Guardianship: No Medical Problems Affecting Mental Status: No Interim History: Medical record and nursing notes reviewed; case discussed during rounds with team, and met with patient for supportive therapy/psychoeducation, as well as medication management. Patient slept for 8 hours and has no appetite issues. Per nursing patient has been eating double portions for meals. She reports happy about gained some weight lately as I lost a lot of weight . Medication compliant. Denies any side effects. She requests to have trazodone scheduled instead of p.r.n.. Review medication that she currently on. Advised and explained why this provider good like her to have Remeron increased for sleep instead of getting trazodone as it can put her on more risk medication interaction as for polymedications. She requests to take trazodone as it helpful for insomnia. Reports she has has been much better and less depressed. Feeling ready to go home tomorrow. She would like medication sent to [facility] in [facility], per sr. social media & mobile manager patient will have VNA services a day after discharge which means her friend have to do medication management tomorrow night after discharge. She will continue with outpatient psychiatrist and therapist. She was unsure how many Klonopin she has left at home. She would see if her friend can count it and let us know. Medication Compliance: Yes Side effects from medications: No Attending Groups: Yes Review of Systems Acute medical concerns: No Medical Review of Systems: unchanged Review of Systems Review of Systems Constitutional: Denies fatigue and Denies fever(s) Cardiovascular: Denies chest pain and Denies dyspnea Respiratory: Denies dyspnea Gastrointestinal: Denies abdominal pain Psychiatric: denies suicidal ideation Endocrine: Denies fatigue Mental Status Exam Mental Status Exam Patient Appearance: Appropriate Patient Orientation: Person, Place, Time and Situation Level of Consciousness: Alert Patient Behavior: Appropriate, Talkative and Cooperative Mood Description: Happy, Constricted and Anxious Affect Description: Happy, Constricted and Anxious Patient Cognition Impaired: No Ability to Follow Directions: Good Speech Pattern: Clear and Spontaneous Speech Memory Description: Episodic Impaired and Recent Impaired Hallucinations: None Delusions: Not Present Perceptual Disturbances: Depersonalization Thought Process: Intact and Goal Oriented Thought Content: positive for Intact, positive for [place], positive for Goal Oriented and positive for Logical Depressive Symptoms: Increased Anxiety and Loss of Energy Judgement: Fair Diagnostics Vital Signs (24Hr): Vital Signs - 24 hr 02/15/25 18:04 02/15/25 20:00 02/16/25 08:00 Temperature 98.2 F 98.5 F Pulse Rate 80 105 H Respiratory Rate 16 Blood Pressure 100/78 110/61 121/58 L Pulse Oximetry 100 94 Oxygen Delivery Method Room Air 02/16/25 13:32 Temperature Pulse Rate Respiratory Rate Blood Pressure 110/64 Pulse Oximetry Oxygen Delivery Method BMI result Body Mass Index 18.8 Medications Medications Current Medications Acetaminophen (Acetaminophen 325 Mg Tablet) 650 mg PO Q6H PRN PRN Reason: Headache/Pain, Scale 1-10 Last Admin: 02/16/25 08:41 Dose: 650 mg Al Hydroxide/Mg Hydroxide (Magnesium Hydrox/Alum Hydrox 30 Ml Oral.Susp) 30 ml PO Q6H PRN PRN Reason: Heartburn/Nausea Aripiprazole (Aripiprazole 5 Mg Tablet) 5 mg PO DAILY [facility] Last Admin: 02/16/25 08:39 Dose: 5 mg Bupropion HCl (Bupropion Hcl Xl 300 Mg Tab.Er.24h) 300 mg PO DAILY [facility] Last Admin: 02/16/25 08:39 Dose: 300 mg Clonazepam (Clonazepam 1 Mg Tablet) 1 mg PO TID PRN PRN Reason: Anxiety Last Admin: 02/16/25 08:39 Dose: 1 mg Hydroxyzine HCl (Hydroxyzine Hcl 25 Mg Tablet) 25 mg PO Q6H PRN PRN Reason: mild anxiety Last Admin: 02/09/25 09:25 Dose: 25 mg Lamotrigine 100 mg/ (Lamotrigine 75 mg) 175 mg PO BID [facility] Last Admin: 02/16/25 08:39 Dose: 175 mg Magnesium Hydroxide (Milk Of Magnesia 30 Ml Oral.Susp) 30 ml PO DAILY PRN PRN Reason: Constipation Last Admin: 02/11/25 20:49 Dose: 30 ml Midodrine (Midodrine Hcl 2.5 Mg Tablet) 2.5 mg PO TIDWM [facility] Last Admin: 02/16/25 13:32 Dose: 2.5 mg Mirtazapine (Mirtazapine 15 Mg Tablet) 15 mg PO BEDTIME [facility] Last Admin: 02/15/25 21:10 Dose: 15 mg Nicotine Polacrilex (Nicotine Polacrilex 2 Mg Gum) 4 mg BUCCAL Q2H PRN PRN Reason: Nicotine Cravings Sertraline HCl (Sertraline Hcl 100 Mg Tablet) 200 mg PO DAILY [facility] Last Admin: 02/16/25 08:39 Dose: 200 mg Trazodone HCl (Trazodone Hcl 50 Mg Tablet) 50 mg PO BEDTIME [facility] Allergies Allergies Allergy/AdvReac Type Severity Reaction Status Date / Time No Known Allergies Allergy Verified 02/08/25 10:36 Assessment & Plan Assessment & Plan (1) Major depressive disorder: Status: Acute Code(s): F32.9 - Major depressive disorder, single episode, unspecified Plan Admit, CV, 15 minute checks Diagnostics as needed Collateral Contacts Encourage full milieu to increase strength in coping Continue current regime today 02/10: Increase Mirtazapine to 15 mg HS DC Venlafaxine 02/13: Continue treatment, DC planning 02/15: Continue tx, DC 02/17 tentative 02/16/25: Continue with medication plan. Observe attended groups. Anxious but pleasant and cooperative. Alert and awake x3 One change in terms of medication make today per patient request to scheduled trazodone at bedtime for insomnia instead of as needed. Patient chose to take trazodone instead of having Remeron increased up to 30 mg for insomnia. Patient currently on the 2 for antidepressant. We will continue to monitor for any possible interaction. So far she likes her current regimens. Denies side effects. Looking forward to be discharged tomorrow. hide mill worker was able to set up the VNA services for her which we will start the day after discharge. She would like medication to sent to [facility] in [facility]. Her [place] was done yesterday score 14/30 per OT reports. Patient educated on: medication risk/benefits and therapeutic strategies Informed Consent: understands Reason for continued inpatient stay Substantial Risk for: med/psych decompensation Time Spent With Patient Time: Total time managing care of this patient today ____ minutes.
[2025-02-16 17:38] VITALS: BP 104/78
[2025-02-16 20:00] VITALS: BP 116/58; PULSE 92; TEMP 36.9; O2SAT 98
[2025-02-16] MEDS: traZODone HCL 50 MG TABLET PO (21:18)
[2025-02-16] MEDS: Mirtazapine 15 MG TABLET PO (21:18)
[2025-02-17 07:59] VITALS: BP 106/57; PULSE 91; TEMP 37.7; O2SAT 96
[2025-02-17] MEDS: Sertraline HCL 100 MG TABLET 200 MG PO (08:57)
[2025-02-17] MEDS: buPROPion HCl XL 300 MG TAB.ER.24H PO (08:57)
[2025-02-17] MEDS: ARIPiprazole 5 MG TABLET PO (08:57)
[2025-02-17] MEDS: Acetaminophen 325 MG TABLET 650 MG PO (09:02)
[2025-02-17] MEDS: clonazePAM 1 MG TABLET PO (09:02)
--- NOTE | 2025-02-17 10:43 | PM.PSYDC ---
DS: Providers Provider Date of admission: 02/08/25 15:31 Primary care physician: Unknown Physician Consults: 02/08/25 17:46 Consult to Hospitalist Routine Comment: Consulting Provider: [facility] Hospitalists Reason For Exam: Transfer pt DS: Diagnosis Discharge Diagnosis (1) Major depressive disorder: Status: Acute DS: Medications Discharge Medications Home Medications: Previous Rx's ?Medication ?Instructions ?Recorded acetaminophen 325 mg tablet 650 mg (2 x 325 mg) PO Q6H PRN 02/17/25 Headache/Pain, Scale 1-10 #0 tabs aripiprazole 5 mg tablet (Abilify) 5 mg PO DAILY #0 tabs 02/17/25 bupropion HCl 300 mg 24 hr tablet, 300 mg PO DAILY #30 tabs 02/17/25 extended release clonazepam 1 mg tablet 1 mg PO TID PRN Anxiety #21 tabs 02/17/25 lamotrigine 150 mg tablet 150 mg PO BID #60 tabs 02/17/25 lamotrigine 25 mg tablet 25 mg PO BID #60 tabs 02/17/25 midodrine 2.5 mg tablet 2.5 mg PO TIDWM #90 tabs 02/17/25 mirtazapine 15 mg tablet 15 mg PO BEDTIME #30 tabs 02/17/25 sertraline 100 mg tablet 200 mg (2 x 100 mg) PO DAILY #60 02/17/25 tabs trazodone 50 mg tablet 50 mg PO BEDTIME #30 tabs 02/17/25 DS: Summary Time Spent with Patient Time attestation: Total time managing care of this patient today ____ minutes. Discharge Plan Discharge Anticipated Discharge Date/Time: 02/17/25 12:00 Patient Disposition: Home, Self-Care Discharge Diagnosis: Recurrent Major Depression Referrals: Therapy: Malia Cardenas ([facility]) [Other] - 02/21/25 12:00 pm Psychiatrist: Ann Guillen ([facility]) [Other] - 03/07/25 2:30 pm Referral Note: Telehealth- please be by your phone 5-10 minutes prior to appointment time and expect a phone call Senior [facility]: [facility] [Other] - 1 Week Referral Note: You may call or walk-in M-F 9am-1pm to ask about their events and activities [facility]: [facility] [Other] - 1 Week Referral Note: Call or walk-in M-F 7am-3pm to ask about their events and activities Elder Services Assessment:Karina ([facility]) [Other] - 02/20/25 10:00 am Referral Note: Karina will be doing a home visit on 02/20 @ 10am to evaluate you for any additional services; please ask her for assistance in setting up a day program Home delivered meals have been re-started for 02/17 PCP: Bruno Steward ([facility]) [Other] - 02/22/25 2:00 pm Referral Note: Appointment is in person at the office in [place]; at this appointment ask about physical therapy referral for your elbow Behavioral Health Online Media Buyer: Rox ([facility]) [Other] - 1 Week Referral Note: Rox is a skilled nursing case manager assigned to you through your insurance. You may call Rox at the above number as needed for assistance with managing your services or need for additional services Visiting Nurse: Quan Mckeon [Other] - 02/18/25 Referral Note: You will receive a call from a nurse today and again tomorrow, to arrange a time for them to come out to your home on 02/18 to initiate services Discharge Medications: New midodrine 2.5 mg Tablet 2.5 mg PO TIDWM Qty: 90 0RF acetaminophen 325 mg Tablet 650 mg PO Q6H PRN (Reason: Headache/Pain, Scale 1-10) Qty: 0 0RF aripiprazole [Abilify] 5 mg Tablet 5 mg PO DAILY Qty: 0 0RF bupropion HCl 300 mg Tablet Extended Release 24 Hr 300 mg PO DAILY Qty: 30 0RF clonazepam 1 mg Tablet 1 mg PO TID PRN (Reason: Anxiety) Qty: 21 4RF mirtazapine 15 mg Tablet 15 mg PO BEDTIME Qty: 30 0RF sertraline 100 mg Tablet 200 mg PO DAILY Qty: 60 0RF trazodone 50 mg Tablet 50 mg PO BEDTIME Qty: 30 0RF Continued lamotrigine 150 mg Tablet 150 mg PO BID Qty: 60 0RF lamotrigine 25 mg Tablet 25 mg PO BID Qty: 60 0RF Discontinued trazodone 50 mg Tablet 50 mg PO BEDTIME clonazepam 1 mg Tablet 1 mg PO TID PRN (Reason: Anxiety) venlafaxine 37.5 mg Tablet 37.5 mg PO DAILY midodrine 2.5 mg Tablet 2.5 mg PO TIDWM Rx Instructions: do not give last dose of day after 6PM or within 4 hrs of bedtime aripiprazole 5 mg Tablet 5 mg PO DAILY bupropion HCl 300 mg Tablet Extended Release 24 Hr 300 mg PO QAM mirtazapine 7.5 mg Tablet 7.5 mg PO BEDTIME sertraline 200 mg Capsule 200 mg PO DAILY Discharge Orders: Discharge Order (Routine); Ordered 02/17/25 Ordered By: Edith Hays Diet: Advance to usual diet Activity on Discharge: As tolerated Stand Alone Forms: Patient Portal Discharge page Print Language: Setswana Care Plan Goals: Mood and Behavioral Stabilization Health Concerns: Mood and Behavioral Stabilization Plan of Treatment: Attend scheduled appointments Take medications as directed Call/Return as needed Assessment: Denies SI,HI, AH,VH No sx of overt faustino or psychosis Agrees with plan of care Pt is pleased to be connected to more community services for increase in socialization and activities within her community post discharge.
== END 2025-02-17 11:10 | disposition home or self-care (01) | DRG 885 ==
PROVIDERS: Clinical Nurse Specialist Psychiatric/Mental Health, Adult; Admitting Provider Psychiatry & Neurology Psychiatry; Visit Provider Psychiatry & Neurology Psychiatry
DX: F33.9 Major depressive disorder, recurrent, unspecified (principal); Z79.899 Other long term (current) drug therapy
CPT/HCPCS: 36415; 80061; 82607; 82746; 83036; 83735; 84439; 84443

== ENCOUNTER → 2025-02-08 15:31 | Outpatient (BNV) | payer OTHER, SELFPAY | PROVIDERS: Admitting Provider Psychiatry & Neurology Psychiatry; Visit Provider Clinical Nurse Specialist Psychiatric/Mental Health, Adult | DX: F32.2 Major depressive disorder, single episode, severe without psychotic features (principal) | CPT/HCPCS: 90792; 99231; 99232 ==

== ENCOUNTER → 2025-02-08 15:31 | Outpatient (BNV) | payer OTHER, SELFPAY | PROVIDERS: Admitting Provider Psychiatry & Neurology Psychiatry; Visit Provider Nurse Practitioner Family | DX: F32.9 Major depressive disorder, single episode, unspecified (principal) | CPT/HCPCS: 99221 ==

== ENCOUNTER 2025-08-07 14:37 | Inpatient (IN) | payer OTHER, SELFPAY ==
--- OUTSIDE RECORDS SUMMARY | 2025-08-05 15:03 | XMS_ITS | Encounter Summary ---
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 Encounter Details Date Type Department Care Team (Late st Contact Info) Description 08/05/2025 3:03 PM EST - 08/07/2025 1:55 PM EST Emergency [facility] Emergency [address] [place] [id number] Rodrigo Zheng MD [address] [place] [address] Regino Lorenzana MD [address] [place] [address] Carol Adan MD [address] [place] [id number] Nidhi Ornelas MD [address] [place] [address] Anxiety (Primary Dx); Suicidal ideation [facility]charge Disposition[facility] Social History Tobacco Use Types Packs/Day Years Used Date Smoking Tobacco: Former Cigarettes 1 24.4 0 08/24/1982 - 01/22/2007 Smokeless Tobacco: Never Alcohol Use Standard Drinks/Week Comments Not Currently 0 (1 standard drink = 0.6 oz pur e alcohol) Housing Instability Answer Date Recorde d Are you worried that in the next 2 months you may not have stable housing? Yes 08/05/2025 Food Access & Nutrition Answer Date Rec orded Do you have access to a vari ety of food including fruits and vegetables? Yes 08/05/2025 Access to Healthcare Answer Date Record ed Within the last 3 months, ho w many times did you visit the emergency department for your medical care? 2 08/05/2025 Health Literacy Answer Date Recorded How often do you need to hav e someone help you when you read instructions, pamphlets, or other written material from your doctor or pharmacy? Sometimes 08/05/2025 Caregiver: How often do you need to have someone help you when you read instructions, pamphlets, or other written material from your doctor or pharmacy? Not on file 08/05/2025 Financial Risk Answer Date Recorded How hard is it for you to pa y for the very basics like food, housing, medical care, and air conditioning / heating? Not very hard 08/05/2025 Transportation Answer Date Recorded Has the lack of transportati on kept you from meetings, work, or from getting things needed for daily living? No Has the lack of transportati on kept you from medical appointments or from getting medications? No 08/05/2025 Social Isolation Answer Date Recorded How often do you feel lonely or isolated from th ose around you? Rarely 08/05/2025 Food Risk Answer Date Recorded Within the past 12 months we worried whether our food would run out before we got money to buy more. Never true 08/05/2025 Within the past 12 months th e food we bought just didn't last and we didn't have money to get more. Never true 08/05/2025 Dependent Care Answer Date Recorded Do you need help finding or paying for care for your loved ones. For example, children's program coordinator or elderly care for an older adult? No 08/05/2025 Education Answer Date Recorded Do you think completing more education or training, like finishing a GED, going to college, or learning a trade, would be helpful for you? No 08/05/2025 Employment and Income Answer Date Recor ded During the last four weeks, have you been actively looking for work? No 08/05/2025 Living Situation Answer Date Recorded What is your living situation? Unrecognized valu e 08/05/2025 Interpersonal Safety Answer Date Record ed Physical Abuse Unrecognized value 09/17/2024 Verbal Abuse Unrecognized value 09/17/2024 Comments No Sex and Gender Information Value Date Recorded Sex Assigned at Female 09/16/2024 11:04 PM EST Legal Sex Female 3:54 PM EST Gender Identity Female 09/16/2024 11:04 PM EST Sexual Orientation Straight 09/16/2024 11 :04 PM EST documented as of this encounter Last Filed Vital Signs Vital Sign Reading Time Taken Comments Blood Pressure 117/67 08/07/2025 12:35 PM EST Pulse 91 08/07/2025 12:35 PM EST Temperature 36.7 C (98.1 F) 08/07/2025 12:35 PM EST Respiratory Rate 20 08/07/2025 12:35 PM EST Oxygen Saturation 100% 08/07/2025 12:35 PM EST Inhaled Oxygen Concentration - - Weight 59 kg (130 lb) 08/05/2025 2:24 PM EST Height 172.7 cm (5' 8 ) 08/05/2025 2:24 PM EST Body Mass Index 19.77 08/05/2025 2:24 PM EST documented in this encounter Functional Status * Are you deaf or do you have serious difficulty hearing? Answer Date of Assessment Author No 02/07/2025 8:14 PM EDT Baldemar Crocker RN * Are you blind or do you have serious difficulty seeing, even when wearing glasses? Answer Date of Assessment Author No 02/07/2025 8:14 PM EDT Baldemar Crocker RN * Do you have serious difficulty walking or climbing stairs? Answer Date of Assessment Author No 02/07/2025 8:14 PM EDT Baldemar Crocker RN * Do you have serious difficulty dressing or bathing? Answer Date of Assessment Author No 02/07/2025 8:14 PM EDT Baldemar Crocker RN * Because of a physical, mental, or emotional condition, do you have serious difficulty doing errandsalone such as visiting the doctor? Answer Date of Assessment Author No 02/07/2025 8:14 PM EDT Baldemar Crocker RN * Calculated C-SSRS Risk Score (Lifetime/Recent) Answer Date of Assessment Author No Risk Indicated 08/07/2025 9:00 AM EST France Bronson lt, RN * [place] Suicide Severity Rating Scale (Screener/Recent Self-Report) Question Answer Date of Assessment Author 1. Wish to be (Past 1 Month) No 9:00 AM France Goel RN 2. Non-Specific Active Suici catherine Thoughts (Past 1 Month) No 08/07/2025 9:00 AM Gisselle Goel RN 6. Suicidal Behavior (Lifetime) No 9:00 AM France Goel RN documented as of this encounter Mental Status * Because of a physical, mental, or emotional condition, do you have serious difficulty concentrating, remembering, or making decisions? (5 years old or older) Answer Entry Date Author No 02/07/2025 8:14 PM EDT Baldemar Crocker RN documented in this encounter Medications at Time of Discharge ARIPiprazole (ABILIFY) 5 mg tablet Take 1 tablet (5 mg total) by mouth 1 (one) time each day. 90 tablet 3 02/22/2025 buPROPion XL (WELLBUTRIN XL) 300 mg 24 hr tablet Take 1 tablet (300 mg total) by mouth 1 (one) time each day. Do not crush, chew, or split. 90 tablet 3 02/22/2025 clonazePAM (KlonoPIN) 1 mg tablet Take 1 tablet (1 mg total) by mouth 3 (three) times a day if needed for anxiety. Max Daily Amount: 3 mg 84 tablet 02/22/2025 ergocalciferol (VITAMIN D-2) 1,250 mcg (50,000 unit) capsule 02/03/2024 lamoTRIgine (LaMICtal) 100 mg tablet Take 1 tablet (100 mg total) by mouth 2 (two) times a day. To be taken with additional 75mg BID 180 tablet 3 02/22/2025 lamoTRIgine (LaMICtal) 25 mg tablet Take 3 tablets (75 mg total) by mouth 2 (two) times a day. 540 each 02/22/2025 midodrine (PROAMATINE) 2.5 mg tablet Take 1 tablet (2.5 mg total) by mouth 3 (three) times a day before meals. 270 each 02/22/2025 mirtazapine (REMERON) 15 mg tablet Take 1 tablet (15 mg total) by mouth at bedtime. 90 each 3 02/22/2025 sertraline (ZOLOFT) 100 mg tablet Take 2 tablets (200 mg total) by mouth 1 (one) time each day. 180 each 3 02/22/2025 traZODone (DESYREL) 100 mg tablet Take 1 tablet (100 mg total) by mouth at bedtime as needed for sleep. 90 tablet 3 02/22/2025 documented as of this encounter Discharge Disposition Disposition Code Departure Means Destination Comment [facility] S 1 documented in this encounter Progress Notes * Nidhi Ornelas MD - 08/07/2025 9:32 AM EST Dulce Mukherjee Today patient remains pending inpatient psychiatric placement for suicidal ideation and anxiety. Patient accepted to [facility], S[address] By Dr. Duff ICD-10-CM ICD-9-CM 1. Anxiety F41.9 300.00 2. Suicidal ideation R45.851 V62.84 * Corine Cummings LCSW - 08/07/2025 9:11 AM EST BED FOUND- Patient accepted to [facility], S[address] By Dr. Duff, ETA to be determined duringnurse to nurse. * Carol Adan MD - 08/07/2025 7:48 AM EST Dulce Mukherjee This patient's care was signed out to me by the offgoing provider. Please see her/his note for further details regarding initial presentation, history of present illness, physical exam, and medical decision making. At time of signout, the following was pending: Continues to await inpatient psych placement. No acute needs during my shift. Patient's care was handed over to the oncoming provider. ED Course as of 08/07/25 0749 Sat Aug 05, 2025 [id number] I, Dr. Dick Zheng, signed this patient out pending further workup and evaluation. History and physical reviewed with oncoming team. At this point the pending portions of the work-up are: Follow-up crisis evaluation reevaluation and disposition [MG] 1944 In patient care per care team [MZ] Estrella Aug 06, 2025 0156 Seen by care team plan for inpatient admission [MZ] 0333 Signed out pending inpatient psychiatric placement [EK] 0800 No acute needs during my shift. Patient's care was handed over to the oncoming provider. [EK] Mon Aug 07, 2025 0748 Continues to await inpatient psych placement. No acute needs during my shift. Patient's care was handed over to the oncoming provider. [EK] ED Course User Index [EK] Carol Adan MD [MG] Rodrigo Zheng MD [MZ] Regino Lorenzana MD Clinical Impressions as of 08/07/25 0749 Anxiety Suicidal ideation No orders to display Labs Reviewed COMPREHENSIVE METABOLIC PANEL - Abnormal Result Value Sodium 140 Potassium 4.0 Chloride 101 CO2 29 Anion Gap 10 Glucose 101 (*) BUN 27 (*) Creatinine 1.09 eGFR 56 (*) BUN/Creatinine Ratio 24.8 Calcium 9.9 AST (SGOT) 19 ALT (SGPT) 15 Alkaline Phosphatase 122 (*) Total Protein 7.1 Albumin 4.6 Total Bilirubin 0.4 ACETAMINOPHEN LEVEL - Abnormal Acetaminophen Level <2.0 (*) DRUG ABUSE SCREEN 8A PANEL, URINE - Abnormal Amphetamine Screen, Ur Negative Barbiturate Screen, Ur Negative Benzodiazepine Screen, Ur Positive (*) Cocaine Screen, Ur Negative Opiate Screen, Ur Negative Cannabinoid (THC) Screen, Ur Negative Oxycodone Screen, Ur Negative Fentanyl, Ur Negative Narrative: Assay cutoffs: Amphetamines 1000 ng/mL Barbiturates 200 ng/mL Benzodiazepines 200 ng/mL Cocaine 300 ng/mL Fentanyl 1 ng/mL Opiates 300 ng/mL Oxycodone 100 ng/mL THC 50 ng/mL Semi-quantitative assay for screening purposes only. Unconfirmed screening result should not be used for non-medical purposes. *ALTERNATE METHOD CONFIRMATION DONE UPON REQUEST ONLY* ETHANOL - Normal Ethanol Level <3 SALICYLATE LEVEL - Normal Salicylate Level <3.0 BUPRENORPHINE SCREEN, URINE - Normal Buprenorphine Screen Urine Negative Narrative: Assay cutoff 5 ng/mL Semi-quantitative assay for screening purposes only. Unconfirmed screening result should not be used for non-medical purposes. *ALTERNATE METHOD CONFIRMATION DONE UPON REQUEST ONLY* PHENCYCLIDINE, URINE - Normal PCP Scrn, Ur Negative METHADONE SCREEN, URINE - Normal Methadone Screen, Urine Negative CBC AND DIFFERENTIAL Narrative: The following orders were created for panel order CBC and differential. Procedure Abnormality Status --------- ------ CBC auto differential[[id number]] Final result Please view results for these tests on the individual orders. CBC WITH AUTO DIFFERENTIAL WBC 9.6 RBC 4.70 Hemoglobin 13.8 Hematocrit 42.7 MCV 91.4 MCH 29.6 MCHC 32.3 RDW 13.1 Platelets 277 MPV 10.5 NRBC 0.0 NRBC Absolute 0.00 Neutrophils Relative 69.2 Lymphocytes Relative 23.9 Monocytes Relative 5.5 Eosinophils Relative 0.8 Basophils Relative 0.3 Immature Granulocytes Relative 0.3 Neutrophils Absolute 6.63 Lymphocytes Absolute 2.29 Monocytes Absolute 0.53 Eosinophils Absolute 0.08 Basophils Absolute 0.03 Immature Granulocytes Absolute 0.03 Clinical Impression(s): Final diagnoses: [F41.9] Anxiety [R45.851] Suicidal ideation Send to Specialty Department Previous Medications ARIPIPRAZOLE (ABILIFY) 5 MG TABLET Take 1 tablet (5 mg total) by mouth 1 (one) time each day. BUPROPION XL (WELLBUTRIN XL) 300 MG 24 HR TABLET Take 1 tablet (300 mg total) by mouth 1 (one) timeeach day. Do not crush, chew, or split. CLONAZEPAM (KLONOPIN) 1 MG TABLET Take 1 tablet (1 mg total) by mouth 3 (three) times a day if needed for anxiety. Max Daily Amount: 3 mg ERGOCALCIFEROL (VITAMIN D-2) 1,250 MCG (50,000 UNIT) CAPSULE LAMOTRIGINE (LAMICTAL) 100 MG TABLET Take 1 tablet (100 mg total) by mouth 2 (two) times a day. To be taken with additional 75mg BID LAMOTRIGINE (LAMICTAL) 25 MG TABLET Take 3 tablets (75 mg total) by mouth 2 (two) times a day. MIDODRINE (PROAMATINE) 2.5 MG TABLET Take 1 tablet (2.5 mg total) by mouth 3 (three) times a day before meals. MIRTAZAPINE (REMERON) 15 MG TABLET Take 1 tablet (15 mg total) by mouth at bedtime. SERTRALINE (ZOLOFT) 100 MG TABLET Take 2 tablets (200 mg total) by mouth 1 (one) time each day. TRAZODONE (DESYREL) 100 MG TABLET Take 1 tablet (100 mg total) by mouth at bedtime as needed for sleep. ED Medication Administration from 08/05/2025 1359 to 08/07/2025 0749 Date/Time Order Dose Route Action Action by 08/05/2025 1528 EST acetaminophen (TYLENOL) tablet 1,000 mg 1,000 mg oral Given Frieda, S 08/05/2025 2009 EST acetaminophen (TYLENOL) tablet 1,000 mg 1,000 mg oral Not Given [facility] 08/06/2025 0824 EST acetaminophen (TYLENOL) tablet 1,000 mg 1,000 mg oral Not Given Bridget 08/06/2025 1305 EST acetaminophen (TYLENOL) tablet 1,000 mg 1,000 mg oral Not Given Bridget 08/06/20252023 EST acetaminophen (TYLENOL) tablet 1,000 mg 1,000 mg oral Not Given [facility] 08/05/2025 1529 EST clonazePAM (KlonoPIN) tablet 1 mg 1 mg oral Given Frieda S 08/05/2025 1751 EST ARIPiprazole (ABILIFY) tablet 5 mg 5 mg oral Given Frieda S 08/06/2025 0820 EST ARIPiprazole (ABILIFY) tablet 5 mg 5 mg oral Given Bridget K 08/05/2025 1751 EST buPROPion XL (WELLBUTRIN XL) 24 hr tablet 300 mg 300 mg oral Given Frieda S 08/06/2025 0821 EST buPROPion XL (WELLBUTRIN XL) 24 hr tablet 300 mg 300 mg oral Given Bridget K 08/05/2025 1950 EST clonazePAM (KlonoPIN) tablet 1 mg 1 mg oral Given [facility] 08/06/2025 0842 EST clonazePAM (KlonoPIN) tablet 1 mg 1 mg oral Given Bridget K 08/06/2025 1516 EST clonazePAM (KlonoPIN) tablet 1 mg 1 mg oral Given Bridget 08/06/20252024 EST clonazePAM (KlonoPIN) tablet 1 mg 1 mg oral Given [facility] 08/05/20252054 EST lamoTRIgine (LaMICtal) tablet 100 mg 100 mg oral Given [facility] 08/06/2025 0820 EST lamoTRIgine (LaMICtal) tablet 100 mg 100 mg oral Given Bridget K 08/06/20252024 EST lamoTRIgine (LaMICtal) tablet 100 mg 100 mg oral Given [facility] 08/05/20252054 EST lamoTRIgine (LaMICtal) tablet 75 mg 75 mg oral Given [facility] 08/06/2025 0821 EST lamoTRIgine (LaMICtal) tablet 75 mg 75 mg oral Given Bridget K 08/06/20252024 EST lamoTRIgine (LaMICtal) tablet 75 mg 75 mg oral Given [facility] 08/05/2025 1751 EST midodrine (PROAMATINE) tablet 2.5 mg 2.5 mg oral Given Akbar Malave 08/06/2025 0727 EST midodrine (PROAMATINE) tablet 2.5 mg 2.5 mg oral Given Bridget K 08/06/2025 1103 EST midodrine (PROAMATINE) tablet 2.5 mg 2.5 mg oral Given Bridget K 08/06/2025 1607 EST midodrine (PROAMATINE) tablet 2.5 mg 2.5 mg oral Given Gill, K 08/05/20252054 EST mirtazapine (REMERON) tablet 15 mg 15 mg oral Given [facility] 08/06/20252024 EST mirtazapine (REMERON) tablet 15 mg 15 mg oral Given [facility] 08/05/2025 1750 EST sertraline (ZOLOFT) tablet 200 mg 200 mg oral Given Frieda, S 08/06/2025 0822 EST sertraline (ZOLOFT) tablet 200 mg 200 mg oral Given Bridget K 08/05/20252054 EST traZODone (DESYREL) tablet 100 mg 100 mg oral Given [facility] 08/06/20252024 EST traZODone (DESYREL) tablet 100 mg 100 mg oral Given [facility] * Luke Gill RN - 08/06/2025 3:40 PM EST Images from the original note were not included. Ninfa Low (housemate) would like to be updated Cell - [phone] House - [phone] (can leave message) * Nidhi Ornelas MD - 08/06/2025 10:58 AM EST Dulce Mukherjee This patient was signed out to me by ED provider, Dr Adan. Briefly, the patient presented to the ED with suicidal ideation and anxiety. Signed out to me pending psych placement. No acute events on my shift. ICD-10-CM ICD-9-CM 1. Anxiety F41.9 300.00 2. Suicidal ideation R45.851 V62.84 * Luke Gill RN - 08/06/2025 8:52 AM EST Pt today appears quiet and pleasant, with notable shaking of hands. Pt states she is feeling anxious, about nothing specifically, but denies any suicidal or homicidal feelings today. Pt able to ambulate independently. Pt provided with breakfast tray, able to feed self independently. Pt provided with Klonipin per request, pt denies any other needs. Pt now laying in bed quietly with even rise and fall of chest. * Angelo Mota RN - 08/05/2025 7:43 PM EST Patient's roommate Natali requested to be called with any updates with the approval of patient. Natali instructed this RN to call cell phone first ([phone]). If she does not pick and shovel man, please call her house number ([phone]) and to leave a voicemail if she does not pick and shovel man. * Sahra Law RN - 08/05/2025 2:10 PM EST PT HERE TODAY FOR ANXIETY. PT HAS BEEN OFF HER MEDICATIONS FOR 3 WEEKS. PT SEEN 07/24 AT [facility] FOR THESAME ISSUE. * Rodrigo Zheng MD - 08/05/2025 1:59 PM EST Emergency Medicine Note Patient Name: Dulce Mukherjee Initial Evaluation: 08/05/2025 : 1960 Patient's PCP: REEMA Brown Emergency Physician: Rodrigo Zheng MD History of Present Illness Chief Complaint: Chief Complaint Patient presents with Anxiety BEEN OFF MEDICATIONS FOR 3 WEEKS. HPI: 65-year-old female with a history of anxiety presents for ration anxiety and SI. Patient has been off her medications for several weeks due to confusion about her medication regimen. States she feels extremely anxious. She is also endorsing SI, no specific plan. No access to lethal means including firearm. Previous History Medical History[1] Surgical History[2] Social History[3] Family History[4] has no known allergies. Medications Ordered Prior to Encounter[5] Physical Exam ED Triage Vitals [08/05/25 1424] Temp Heart Rate Resp BP 36.8 ??C (98.2 ??F) 105 20 114/78 SpO2 Temp Source Heart Rate Source Patient Position 98 % Oral -- Sitting BP Location FiO2 (%) Right arm -- GENERAL: Well-Appearing SKIN: Warm, dry, normal for ethnicity. No rashes. HEENT: Normal sclera, noninjected nonicteric CHEST: Normal peripheral perfusion, no edema PULMONARY: Normal respiratory effort ABDOMINAL: Nondistended NEURO: Alert and oriented, moving all extremities equally. Marked resting tremor bilateral hands. PSYCHIATRIC: Flat affect, fluid speech, poor eye contact. Endorsing SI, denies HI. No RIS Results Labs Reviewed COMPREHENSIVE METABOLIC PANEL - Abnormal Result Value Sodium 140 Potassium 4.0 Chloride 101 CO2 29 Anion Gap 10 Glucose 101 (*) BUN 27 (*) Creatinine 1.09 eGFR 56 (*) BUN/Creatinine Ratio 24.8 Calcium 9.9 AST (SGOT) 19 ALT (SGPT) 15 Alkaline Phosphatase 122 (*) Total Protein 7.1 Albumin 4.6 Total Bilirubin 0.4 ACETAMINOPHEN LEVEL - Abnormal Acetaminophen Level <2.0 (*) DRUG ABUSE SCREEN 8A PANEL, URINE - Abnormal Amphetamine Screen, Ur Negative Barbiturate Screen, Ur Negative Benzodiazepine Screen, Ur Positive (*) Cocaine Screen, Ur Negative Opiate Screen, Ur Negative Cannabinoid (THC) Screen, Ur Negative Oxycodone Screen, Ur Negative Fentanyl, Ur Negative Narrative: Assay cutoffs: Amphetamines 1000 ng/mL Barbiturates 200 ng/mL Benzodiazepines 200 ng/mL Cocaine 300 ng/mL Fentanyl 1 ng/mL Opiates 300 ng/mL Oxycodone 100 ng/mL THC 50 ng/mL Semi-quantitative assay for screening purposes only. Unconfirmed screening result should not be used for non-medical purposes. *ALTERNATE METHOD CONFIRMATION DONE UPON REQUEST ONLY* ETHANOL - Normal Ethanol Level <3 SALICYLATE LEVEL - Normal Salicylate Level <3.0 BUPRENORPHINE SCREEN, URINE - Normal Buprenorphine Screen Urine Negative Narrative: Assay cutoff 5 ng/mL Semi-quantitative assay for screening purposes only. Unconfirmed screening result should not be used for non-medical purposes. *ALTERNATE METHOD CONFIRMATION DONE UPON REQUEST ONLY* PHENCYCLIDINE, URINE - Normal PCP Scrn, Ur Negative METHADONE SCREEN, URINE - Normal Methadone Screen, Urine Negative CBC AND DIFFERENTIAL Narrative: The following orders were created for panel order CBC and differential. Procedure Abnormality Status --------- ------ CBC auto differential[[id number]] Final result Please view results for these tests on the individual orders. CBC WITH AUTO DIFFERENTIAL WBC 9.6 RBC 4.70 Hemoglobin 13.8 Hematocrit 42.7 MCV 91.4 MCH 29.6 MCHC 32.3 RDW 13.1 Platelets 277 MPV 10.5 NRBC 0.0 NRBC Absolute 0.00 Neutrophils Relative 69.2 Lymphocytes Relative 23.9 Monocytes Relative 5.5 Eosinophils Relative 0.8 Basophils Relative 0.3 Immature Granulocytes Relative 0.3 Neutrophils Absolute 6.63 Lymphocytes Absolute 2.29 Monocytes Absolute 0.53 Eosinophils Absolute 0.08 Basophils Absolute 0.03 Immature Granulocytes Absolute 0.03 Abnormal Labs Reviewed COMPREHENSIVE METABOLIC PANEL - Abnormal; Notable for the following components: Result Value Glucose 101 (*) BUN 27 (*) eGFR 56 (*) Alkaline Phosphatase 122 (*) All other components within normal limits ACETAMINOPHEN LEVEL - Abnormal; Notable for the following components: Acetaminophen Level <2.0 (*) All other components within normal limits DRUG ABUSE SCREEN 8A PANEL, URINE - Abnormal; Notable for the following components: Benzodiazepine Screen, Ur Positive (*) All other components within normal limits Narrative: Assay cutoffs: Amphetamines 1000 ng/mL Barbiturates 200 ng/mL Benzodiazepines 200 ng/mL Cocaine 300 ng/mL Fentanyl 1 ng/mL Opiates 300 ng/mL Oxycodone 100 ng/mL THC 50 ng/mL Semi-quantitative assay for screening purposes only. Unconfirmed screening result should not be used for non-medical purposes. *ALTERNATE METHOD CONFIRMATION DONE UPON REQUEST ONLY* No orders to display I have discussed the incidental/abnormal imaging and/or lab abnormalities with the patient and haveinstructed them the need for further evaluation and workup with their primary care doctor. Medical Decision Making Differential Diagnosis: Anxiety, suicidal ideation, depression MDM: 65-year-old female with a history of anxiety presents for anxiety and SI after being off anxiety medication for several weeks. Patient normally takes clonazepam, I have ordered the home meds to treat her symptomatically. Given her SI, will need to be seen by crisis. Her tremor is most likely due to anxiety, very low suspicion for withdrawal given how long she has been off her medications. Patient is medically cleared and referred to crisis. Clinical Impression: Anxiety, suicidal ideation SEPSIS Exemption: [ x ] It is unlikely this patient has sepsis at the time of my evaluation. Medications melatonin tablet 6 mg (has no administration in time range) aluminum-magnesium hydroxide-simethicone (MAALOX) 200-200-20 mg/5 mL suspension 30 mL (has no administration in time range) ondansetron ODT (ZOFRAN-ODT) disintegrating tablet 4 mg (has no administration in time range) acetaminophen (TYLENOL) tablet 1,000 mg (1,000 mg oral Given 08/05/25 1528) ARIPiprazole (ABILIFY) tablet 5 mg (5 mg oral Given 08/05/251750) buPROPion XL (WELLBUTRIN XL) 24 hr tablet 300 mg (300 mg oral Given 12/13/25 1751) clonazePAM (KlonoPIN) tablet 1 mg (has no administration in time range) lamoTRIgine (LaMICtal) tablet 100 mg (has no administration in time range) lamoTRIgine (LaMICtal) tablet 75 mg (has no administration in time range) midodrine (PROAMATINE) tablet 2.5 mg (2.5 mg oral Given 08/05/25 1751) mirtazapine (REMERON) tablet 15 mg (has no administration in time range) sertraline (ZOLOFT) tablet 200 mg (200 mg oral Given 08/05/25 1750) traZODone (DESYREL) tablet 100 mg (has no administration in time range) clonazePAM (KlonoPIN) tablet 1 mg (1 mg oral Given 08/05/25 1529) ED Course as of 08/05/251855 Sat Aug 05, 20251855 I, Dr. Dick Zheng, signed this patient out pending further workup and evaluation. History and physical reviewed with oncoming team. At this point the pending portions of the work-up are: Follow-up crisis evaluation reevaluation and disposition [MG] ED Course User Index [MG] Rodrigo Zheng MD Clinical Impressions as of 08/05/251855 Anxiety Suicidal ideation Procedures Procedures Diagnosis 1. Anxiety 2. Suicidal ideation Disposition Send to Specialty Department ED Prescriptions None Rodrigo Zheng MD 08/05/25 5814 [1] Past Medical History: Diagnosis Date Anxiety state, unspecified 04/30/2007 DX:Anxiety state, unspecified Depressive disorder, not elsewhere classified 04/30/2007 DX:Depressive disorder, not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 08/05/2025 3:21 PM EST Rodrigo Zheng MD LAB BLOOD ORDERABLES Final Resu lt [facility] [address] [place] [address], [place] [phone] * Methadone, urine (08/05/2025 3:14 PM EST) [facility] Methadone Screen, Urine Negative Negative 08/05/2025 3:55 PM EST [facility] Comment: Assay cutoff 300 ng/mL Semi-quantitative assay for screening purposes only. Unconfirmed screening result should not be used for non-medical purposes. *ALTERNATE METHOD CONFIRMATION DONE UPON REQUEST ONLY* Urine Urine specimen obtained by clean catch procedure / Unknown Non-blood Collection / Unknown 08/05/2025 3:14 PM EST 08/05/2025 3:21 PM EST us Rodrigo Zheng MD LAB URINE ORDERABLES Final Resu lt Performing Organization Address City/[facility]/ZIP Co de Phone Number [facility] [address] [place] [address], [place] [phone] * Phencyclidine, urine (08/05/2025 3:14 PM EST) PCP Scrn, Ur Negative Negative 08/05/2025 3:55 PM EST [facility] Comment: Assay cutoff 25 ng/mL Semi-quantitative assay for screening purposes only. Unconfirmed screening result should not be used for non-medical purposes. *ALTERNATE METHOD CONFIRMATION DONE UPON REQUEST ONLY* Urine Urine specimen obtained by clean catch procedure / Unknown Non-blood Collection / Unknown 08/05/2025 3:14 PM EST 08/05/2025 3:21 PM EST Rodrigo Zheng MD LAB URINE ORDERABLES Final Resu lt Performing Organization Address [facility] de Phone Number [facility] [address] [place] [address], * Buprenorphine screen, urine (08/05/2025 3:14 PM EST) Pathologist [facility] Buprenorphine Screen Urine Negative Negative 08/05/2025 3:53 PM EST [facility] Urine Urine specimen obtained by clean catch procedure / Unknown Non-blood Collection / Unknown 08/05/2025 3:14 PM EST 08/05/2025 3:21 PM EST Narrative [facility] - 08/05/2025 3:53 PM EST Assay cutoff 5 ng/mL Semi-quantitative assay for screening purposes only. Unconfirmed screening result should not be used for non-medical purposes. *ALTERNATE METHOD CONFIRMATION DONE UPON REQUEST ONLY* Rodrigo Zheng MD LAB URINE ORDERABLES Final Resu lt Performing Organization Address [facility]/ZIP Co de Phone Number [facility] [address] [place] [address], [place] [phone] * (ABNORMAL) Drug abuse screen 8a panel, urine (08/05/2025 3:14 PM EST) Amphetamine Screen, Ur Negative Negative 08/05/2025 3:55 PM EST [facility] Comment:Certain OTC medicati ons containing ephedrine, phenylephrine, pseudoephedrine and phenylpropanolamine can cause false positive results. Barbiturate Screen, Ur Negative Negative 08/05/2025 3:55 PM EST [facility] Benzodiazepine Screen, Ur Positive(A ) Negative 08/05/2025 3:55 PM EST [facility] Cocaine Screen, Ur Negative Negative 2024 3:55 PM EST [facility] Opiate Screen, Ur Negative Negative 3:55 PM EST [facility] Cannabinoid (THC) Screen, Ur Negative Negative 08/05/2025 3:55 PM EST [facility] Comment:Specimens from patie nts taking pantoprazole sodium (Protonix) have been shown to produce false positive results. Oxycodone Screen, Ur Negative Negative 07/24 3:55 PM EST [facility] Fentanyl, Ur Negative Negative 08/05/2025 3:55 PM [facility] Urine Urine specimen obtained by clean catch procedure / Unknown Non-blood Collection / Unknown 08/05/2025 3:14 PM EST 08/05/2025 3:21 PM EST Narrative [facility] - 08/05/2025 3:55 PM EST Assay cutoffs: Amphetamines 1000 ng/mL Barbiturates 200 ng/mL Benzodiazepines 200 ng/mL Cocaine 300 ng/mL Fentanyl 1 ng/mL Opiates 300 ng/mL Oxycodone 100 ng/mL THC 50 ng/mL Semi-quantitative assay for screening purposes only. Unconfirmed screening result should not be used for non-medical purposes. *ALTERNATE METHOD CONFIRMATION DONE UPON REQUEST ONLY* us Rodrigo Zheng MD LAB URINE ORDERABLES Final Resu lt [facility] [address] [place] [address], [place] [phone] * Salicylate level (08/05/2025 3:14 PM EST) Salicylate Level <3.0 2.0 - 29.0 mg/dL 08/05/2025 4:08 PM EST [facility] Blood Venous blood specimen / Unknown Venipuncture / Unknown 08/05/2025 3:14 PM EST 08/05/2025 3:21 PM EST us Rodrigo Zheng MD LAB BLOOD ORDERABLES Final Resu lt [facility] [address] [place] [address], [place] [phone] * (ABNORMAL) Acetaminophen level (08/05/2025 3:14 PM EST) Acetaminophen Level <2.0(L) 10.0 - 30.0 mcg/mL 08/05/2025 3:57 PM EST [facility] Blood Venous blood specimen / Unknown Venipuncture / Unknown 08/05/2025 3:14 PM EST 08/05/2025 3:21 PM EST us Rodrigo Zheng MD LAB BLOOD ORDERABLES Final Resu lt [facility] [address] [place] [address], [place] [phone] * Ethanol (08/05/2025 3:14 PM EST) Ethanol Level <3 0 - 10 mg/dL 08/05/2025 4:08 PM EST [facility] Blood Venous blood specimen / Unknown Venipuncture / Unknown 08/05/2025 3:14 PM EST 08/05/2025 3:21 PM EST us Rodrigo Zheng MD LAB BLOOD ORDERABLES Final Resu lt [facility] [address] [place] [address], * (ABNORMAL) Comprehensive metabolic panel (08/05/2025 3:14 PM EST) Sodium 140 133 - 145 mmol/L 08/05/2025 3:57 PM [facility] Potassium 4.0 3.5 - 5.5 mmol/L 08/05/2025 3:57 PM [facility] Chloride 101 96 - 110 mmol/L 08/05/2025 3:57 PM [facility] CO2 29 21 - 32 mmol/L 08/05/2025 3:57 PM [facility] Anion Gap 10 3 - 11 08/05/2025 3:57 PM [facility] Glucose 101(H) 70 - 100 mg/dL 08/05/2025 3:57 PM [facility] BUN 27(H) 5 - 25 mg/dL 08/05/2025 3:57 PM [facility] Creatinine 1.09 0.50 - 1.10 mg/dL 08/05/2025 3:57 PM [facility] eGFR 56(L) >=60 mL/min/1. 73m2 08/05/2025 3:57 PM [facility] Comment:Calculation based on the Chronic Kidney Disease Epidemiology Collaboration (CKD-EPI) equation refit without adjustment for race. BUN/Creatinine Ratio 24.8 08/05/2025 3:57 PM [facility] Calcium 9.9 8.5 - 10.5 mg/dL 08/05/2025 3:57 PM [facility] AST (SGOT) 19 10 - 42 unit/L 08/05/2025 3:57 PM EST [facility] ALT (SGPT) 15 10 - 60 unit/L 08/05/2025 3:57 PM EST [facility] Alkaline Phosphatase 122(H) 42 - 121 unit/L 08/05/2025 3:57 PM [facility] Total Protein 7.1 6.0 - 8.0 g/dL 08/05/2025 3:57 PM EST [facility] Albumin 4.6 3.2 - 5.0 g/dL 08/05/2025 3:57 PM [facility] Total Bilirubin 0.4 0.0 - 1.4 mg/dL 08/05/2025 3:57 PM [facility] Blood Venous blood specimen / Unknown Venipuncture / Unknown 08/05/2025 3:14 PM EST 08/05/2025 3:21 PM EST us Rodrigo Zheng MD LAB BLOOD ORDERABLES Final Resu lt [facility] [address] [place] [address], documented in this encounter Visit Diagnoses Diagnosis Anxiety- Primary Anxiety state, unspecified Suicidal ideation documented in this encounter Administered Medications Inactive Administered Medications - up to 3 most recent administrations Medication Order MAR Action Action Date Dose Rate Site acetaminophen (TYLENOL) tablet 1,000 mg 1,000 mg, oral, 3 times daily, First dose on 08/05/25 at 1518 Given 08/05/2025 3:28 PM EST 1,000 mg aluminum-magnesium hydroxide-simethicone (MAALOX) 200-200-20 mg/5 mL suspension 30 mL 30 mL, oral, Every 8 hours PRN, heartburn, indigestion, Starting on 08/05/25 at 1517 ARIPiprazole (ABILIFY) tablet 5 mg 5 mg, oral, Daily, First dose on 08/05/25 at 1631 Given 08/07/2025 9:01 AM EST 5 mg Given 08/06/2025 8:20 AM EST 5 mg Given 08/05/2025 5:51 PM EST 5 mg buPROPion XL (WELLBUTRIN XL) 24 hr tablet 300 mg 300 mg, oral, Daily, First dose on 08/05/25 at 1631, Do not crush, chew, or split. Given 08/07/2025 9:00 AM EST 300 mg Given 08/06/2025 8:21 AM EST 300 mg Given 08/05/2025 5:51 PM EST 300 mg clonazePAM (KlonoPIN) tablet 1 mg 1 mg, oral, Once, On 08/05/25 at 1526, For 1 dose, Hazardous Medication Intact: - Single pair of ASTM standard [id number] certified gloves - Eye/face protection if vomit or potential to spit up Manipulated: - Double pair of ASTM standard [id number] certified gloves - Eye/face protection if vomit or potential to spit up - Staff at reproductive risk must also wear a hazardous gown - Crushing must be performed in sealed closed pouch - Splitting/cutting should be performed by pharmacy, if possible Given 08/05/2025 3:29 PM EST 1 mg clonazePAM (KlonoPIN) tablet 1 mg 1 mg, oral, 3 times daily PRN, anxiety, Starting on 08/05/25 at 1630, Hazardous Medication Intact: - Single pair of ASTM standard [id number] certified gloves - Eye/face protection if vomit or potential to spit up Manipulated: - Double pair of ASTM standard [id number] certified gloves - Eye/face protection if vomit or potential to spit up - Staff at reproductive risk must also wear a hazardous gown - Crushing must be performed in sealed closed pouch - Splitting/cutting should be performed by pharmacy, if possible Given 08/07/2025 12:58 PM EST 1 mg Given 08/06/2025 8:25 PM EST 1 mg Given 08/06/2025 3:16 PM EST 1 mg lamoTRIgine (LaMICtal) tablet 100 mg 100 mg, oral, 2 times daily, First dose on 08/05/25 at 2100, Total dose = 175 mg Given 08/07/2025 9:04 AM EST 10 0 mg Given 08/06/2025 8:25 PM EST 100 mg Given 08/06/2025 8:20 AM EST 100 mg lamoTRIgine (LaMICtal) tablet 75 mg 75 mg, oral, 2 times daily, First dose on 08/05/25 at 2100, Total dose = 175 mg Given 08/07/2025 9:06 AM EST 75 mg Given 08/06/2025 8:25 PM EST 75 mg Given 08/06/2025 8:21 AM EST 75 mg melatonin tablet 6 mg 6 mg, oral, Nightly PRN, sleep, Starting on 08/05/25 at 1517 midodrine (PROAMATINE) tablet 2.5 mg 2.5 mg, oral, 3 times daily before meals, First dose on 08/05/25 at 1631 Given 08/07/2025 12:39 PM EST 2.5 mg Given 08/07/2025 8:33 AM EST 2.5 mg Given 08/06/2025 4:07 PM EST 2.5 mg mirtazapine (REMERON) tablet 15 mg 15 mg, oral, Nightly, First dose on 08/05/25 at 2100 Given 08/06/2025 8:25 PM EST 15 mg Given 08/05/2025 8:55 PM EST 15 mg ondansetron ODT (ZOFRAN-ODT) disintegrating tablet 4 mg 4 mg, oral, Every 8 hours PRN, nausea, vomiting, Starting on 08/05/25 at 1517 sertraline (ZOLOFT) tablet 200 mg 200 mg, oral, Daily, First dose on 08/05/25 at 1631 Given 08/07/2025 9:00 AM EST 200 mg Given 08/06/2025 8:22 AM EST 200 mg Given 08/05/2025 5:50 PM EST 200 mg traZODone (DESYREL) tablet 100 mg 100 mg, oral, Nightly PRN, sleep, Starting on 08/05/25 at 1630 Given 08/06/2025 8:25 PM EST 100 mg Given 08/05/2025 8:55 PM EST 100 mg documented in this encounter Active and Recently Administered Medications Times are shown in EST. Scheduled Medication Order 08/05/2025 08/06/2025 08/07/2025 acetaminophen (TYLENOL) tablet 1,000 mg 1,000 mg, oral, 3 times daily, First dose on 08/05/25 at 1518 1528 (Given - Provider: Tiffany Malave RN)2008 (Not Given - Provider: Angelo Mota RN - Reason: Patient/Resident/Age nt refused - education provided ) 0824 (Not Given - Provider: Luke Gill RN - Reason: Patient/Resident/Age nt refused - education provided )1305 (Not Given - Provider: Luke Gill RN - Reason: Patient/Resident/Age nt refused - education provided )2023 (Not Given - Provider: Angelo Mota RN - Reason: Patient/Resident/Age nt refused - education provided ) 0921 (Not Given - Provider: France Razo RN - Reason: Patient/Resident/Agent refused - education provided - Comment: denies pain)1318 (Not Given - Provider: France Razo RN - Reason: Patient/Resident/Agent refused - education provided ) ARIPiprazole (ABILIFY) tablet 5 mg 5 mg, oral, Daily, First dose on 08/05/25 at 1631 1751 (Given - Provider: Tiffany Malave RN) 0820 (Given - Provider: Luke Gill RN) 0901 (Given - Provider: France Razo, ESTEPHANIA) buPROPion XL (WELLBUTRIN XL) 24 hr tablet 300 mg 300 mg, oral, Daily, First dose on 08/05/25 at 1631, Do not crush, chew, or split. 1751 (Given - Provider: Tiffany Malave RN) 0821 (Given - Provider: Luke Gill RN) 0900 (Given - Provider: France Razo, ESTEPHANIA) clonazePAM (KlonoPIN) tablet 1 mg (COMPLETED) 1 mg, oral, Once, On 08/05/25 at 1526, For 1 dose, Hazardous Medication Intact: - Single pair of ASTM standard [id number] certified gloves - Eye/face protection if vomit or potential to spit up Manipulated: - Double pair of ASTM standard [id number] certified gloves - Eye/face protection if vomit or potential to spit up - Staff at reproductive risk must also wear a hazardous gown - Crushing must be performed in sealed closed pouch - Splitting/cutting should be performed by pharmacy, if possible 1529 (Given - Provider: Tiffany Malave RN) lamoTRIgine (LaMICtal) tablet 100 mg 100 mg, oral, 2 times daily, First dose on 08/05/25 at 2100, Total dose = 175 mg 2054 (Given - Provider: Angelo Mota RN) 08 (Given - Provider: Luke Gill RN)2024 (Given - Provider: Angelo Mota RN) 0904 (Given - Provider: France Razo RN) lamoTRIgine (LaMICtal) tablet 75 mg 75 mg, oral, 2 times daily, First dose on 08/05/25 at 2100, Total dose = 175 mg 2054 (Given - Provider: Angelo Mota RN) 08 (Given - Provider: Luke Gill RN)2024 (Given - Provider: Angelo Mota RN) 0906 (Given - Provider: France Razo RN) midodrine (PROAMATINE) tablet 2.5 mg 2.5 mg, oral, 3 times daily before meals, First dose on 08/05/25 at 1631 1751 (Given - Provider: Tiffany Malave RN) 0727 (Given - Provider: Luke Gill RN)1103 (Given - Provider: Luke Gill RN)1607 (Given - Provider: Luke Gill RN) 0833 (Given - Provider: France Razo RN)1239 (Given - Provider: France Razo RN)1630 (Canceled Entry - Provider: Automatic Discharge Provider - Comment: Automatically canceled at discontinue of medication order) mirtazapine (REMERON) tablet 15 mg 15 mg, oral, Nightly, First dose on 08/05/25 at 2100 2054 (Given - Provider: Angelo Mota RN) 2024 (Given - Provider: Angelo Mota RN) sertraline (ZOLOFT) tablet 200 mg 200 mg, oral, Daily, First dose on 08/05/25 at 1631 1750 (Given - Provider: Tiffany Malave RN) 0822 (Given - Provider: Luke Gill RN) 0900 (Given - Provider: France Razo RN) PRN Medication Order 08/05/2025 08/06/2025 08/07/2025 aluminum-magnesium hydroxide-simethicone (MAALOX) 200-200-20 mg/5 mL suspension 30 mL 30 mL, oral, Every 8 hours PRN, heartburn, indigestion, Starting on 08/05/25 at 1517 clonazePAM (KlonoPIN) tablet 1 mg 1 mg, oral, 3 times daily PRN, anxiety, Starting on 08/05/25 at 1630, Hazardous Medication Intact: - Single pair of ASTM standard [id number] certified gloves - Eye/face protection if vomit or potential to spit up Manipulated: - Double pair of ASTM standard [id number] certified gloves - Eye/face protection if vomit or potential to spit up - Staff at reproductive risk must also wear a hazardous gown - Crushing must be performed in sealed closed pouch - Splitting/cutting should be performed by pharmacy, if possible 1950 (Given - Provider: Angelo Mota RN) 0842 (Given - Provider: Luke Gill RN)1516 (Given - Provider: Luke Gill RN)2024 (Given - Provider: Angelo Mota RN) 125 (Given - Provider: France Razo RN) melatonin tablet 6 mg 6 mg, oral, Nightly PRN, sleep, Starting on 08/05/25 at 1517 ondansetron ODT (ZOFRAN-ODT) disintegrating tablet 4 mg 4 mg, oral, Every 8 hours PRN, nausea, vomiting, Starting on 08/05/25 at 1517 traZODone (DESYREL) tablet 100 mg 100 mg, oral, Nightly PRN, sleep, Starting on 08/05/25 at 1630 2054 (Given - Provider: Angelo Mota RN) 2024 (Given - Provider: Angelo Mota RN) documented in this encounter Orders Medications Ordered That Primitivo ht Not Have Been Administered Count Last Ordered Date First Ordered Date aluminum-magnesium hydroxide -simethicone (MAALOX) 200-200-20 mg/5 mL suspension 30 mL 1 08/05/2025 melatonin tablet 6 mg 1 08/05/2025 ondansetron ODT (ZOFRAN-ODT) disintegrating tablet 4 mg 1 08/05/2025 Consult Count Last Ordered Date First Orde red Date IP CONSULT TO GATE ATTENDANT 1 08/05/2025 documented in this encounter Additional Health Concerns Assessment Noted Time PHQ-9 Depression Total Score: 0 11/01/19 25 2:07 PM EDT documented as of this encounter Care Teams Cane Burner Relationship Specialty Start Date End Date Bruno Roberts PA [address] [place] [address] PCP - General Internal Medicine 09/16/24 documented as of this encounter
[2025-08-07 14:55] VITALS: BP 95/53; PULSE 79; RESP 16; TEMP 36.4; O2SAT 96
[2025-08-07 15:10] VITALS: BMI 19.2
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
--- NOTE | 2025-08-07 16:22 | PC.ADMIT ---
Dulce Mukherjee was admitted to S1 at 14:50 from [facility] on a CV for treatment of depression with passive SI. Per crisis assessment, prior to admission she was not taking her medications for 3 weeks because of fear of incorrectly taking them. UTox positive for benzos, pt is currently being prescribed Klonazepam.? Upon admission she was awake, alert and oriented to person, place, time and situation. She was moderately depressed rating 5/10, and severely anxious rating her anxiety as 8/10. She denied SI HI AVH. She did not appear internally preoccupied, and her thought process was linear and goal-oriented. She was pleasant and cooperative with admission and assessments. Her appetite was poor and she reports a 30 lb weight loss in 6 months. She reports sleeping adequately with her medication, trazodone and clonazepam. She denies using alcohol, nicotine, or any nonprescribed drugs. She reported her medical history of a left elbow fracture from a fall a year ago, and varicose veins to her shins and upper thighs, per nurse to nurse, pt has a hx of hyperlipidemia. Aside from the varicose veins her skin check was unremarkable. She ambulates independently. Placed on 5 minute safety checks.
[2025-08-07 16:38] VITALS: BP 104/56; PULSE 81; RESP 16
[2025-08-07 20:00] VITALS: BP 100/55; PULSE 74; RESP 16; TEMP 36.7; O2SAT 96
--- OUTSIDE RECORDS SUMMARY | 2025-08-07 21:09 | XMS_ITS | Encounter Summary ---
[facility] Address [address] [place] [address] Care Team Providers Care Office System Analyst Name Role Phone Bruno Roberts Primary Care Provider [phone] [phone] Reason for Visit * Reason Onset Date Comments VNA 08/04/2025 Encounter Details Date Type Department Care Team ([facility] st Contact Info) Description 08/04/2025 Telephone Adult [address] [address] Bruno Roberts PA [address] [place] [address] Social History Tobacco Use Types Packs/Day Years [...] care for your loved ones. For example, child day care teacher or elderly care for an older adult? [...] PM EST documented as of this encounter Functional Status * Are you [...] of Assessment Author No 02/07/2025 8:14 PM LARRYT Baldemar Crocker RN * Because of a physical, mental, or emotional condition, do you have serious difficulty doing errandsalone such as visiting the doctor? Answer Date of Assessment Author No 02/07/2025 8:14 PM EDT Baldemar Crocker RN * Calculated C-SSRS Risk Score (Lifetime/Recent) Answer Date of Assessment Author No Risk Indicated 08/07/2025 9:00 AM France Cannon lt, RN * [place] Suicide Severity Rating Scale (Screener/Recent Self-Report) Question Answer Date of Assessment Author 1. Wish to be (Past 1 Month) No 025 9:00 AM France Goel RN 2. Non-Specific Active Suici catherine Thoughts (Past 1 Month) No 08/07/2025 9:00 AM Gisselle Goel RN 6. Suicidal Behavior (Lifetime) No 9:00 AM France Geol RN documented as of this encounter Mental Status * Because of a physical, mental, or emotional condition, do you have serious difficulty concentrating, remembering, or making decisions? (5 years old or older) Answer Entry Date Author No 02/07/2025 8:14 PM Baldemar Aj RN documented in this encounter Progress Notes * Evangelina Tran RN - 08/04/2025 2:23 PM EST Called and spoke with may given VO-advised pt hasn't been seen since december has hosp fu on 08/07 will update med list at that time and face to face should have come from hosp or rehab pt was d/c'd from that gave original orders * REEMA Gao - 08/04/2025 2:06 PM EST OK for Verbal Order * Haley Pérez RN - 08/04/2025 1:37 PM EST Scheduled follow up for 08/07 at 10:15 with care team and 30 min Please advise on VO for VNA * Blessing Snyder - 08/04/2025 1:14 PM EST VNA CALL Which VNA office is calling? [facility] Full name of caller: Natali Ask for May The caller is Care Experience Traffic Lieutenant Is the caller at the patients home?: no Reason for call: verbals orders, current med list, face to face last visit office notes Does caller need an urgent call back? yes Was CONTACT Telephone # obtained above?: yes Fax #: [phone] documented in this encounter Plan of Treatment Not on file documented as of this encounter Visit Diagnoses Not on filedocumented in this encounter Additional Health Concerns Assessment Noted Time PHQ-9 Depression Total Score: 0 11/01/19 25 2:07 PM EDT documented as of this encounter Care Teams Office System Analyst Relationship Specialty Start Date End Date Bruno Roberts PA [address] [place] [address] PCP - General Internal Medicine 09/16/24 documented as of this encounter
--- OUTSIDE RECORDS SUMMARY | 2025-08-07 21:09 | XMS_ITS | Encounter Summary ---
Author Organization [employer] Address [address] [place] [address] Care Team Providers Care Wool Grower Name Role Phone Bruno Roberts Primary Care Provider [phone] [phone] Encounter Details Date Type Department Care Team (Late st Contact Info) Description 10/08/[address] [facility] - Main Lab [address] [facility] [place] [address] Mansoor Kwok MD [address] [place] [address] 204 [facility] [address] Essential (primary) hypertension Social History Tobacco Use Types Packs/Day Years Used Date Smoking Tobacco: Former Cigarettes 1 24.4 0 08/24/1982 - 01/22/2007 Smokeless Tobacco: Never Alcohol Use Standard Drinks/Week Comments Not Currently 0 (1 standard drink = 0.6 oz pur e alcohol) Interpersonal Safety Answer Date Record ed Physical Abuse Unrecognized value 09/17/2024 Verbal Abuse Unrecognized value 09/17/2024 Comments Unknown Sex and Gender Information Value Date Recorded Sex Assigned at Female 09/16/2024 11:04 PM EST Legal Sex Female 3:54 PM EST Gender Identity Female 09/16/2024 11:04 PM EST Sexual Orientation Straight 09/16/2024 11 :04 PM EST documented as of this encounter Plan of Treatment Not on file documented as of this encounter Procedures Procedure Name Priority Date/Time Associated Diagnosis Comments COMPLETE BLOOD COUNT Routine 10/10/2024 7:31 AM EST Essential (primary) hypertension BASIC METABOLIC PANEL Routine 10/10/2024 7:31 AM EST Essential (primary) hypertension documented in this encounter Results * Basic metabolic panel (10/10/2024 7:31 AM EST) Sodium 140 133 - 145 mmol/L LAB CHEMISTRY METHOD 10/10/2024 1:11 PM [facility] Potassium 4.1 3.5 - 5.5 mmol/L LAB CHEMISTRY METHOD 10/10/2024 1:11 PM [facility] Chloride 105 96 - 110 mmol/L LAB CHEMISTRY METHOD 10/10/2024 1:11 PM [facility] CO2 25 21 - 32 mmol/L LAB CHEMISTRY METHOD 10/10/2024 1:11 PM [facility] Anion Gap 10 3 - 11 LAB CHEMISTRY METHOD 10/10/2024 1:11 PM [facility] Glucose 90 70 - 100 mg/dL LAB CHEMISTRY METHOD 10/10/2024 1:11 PM [facility] BUN 18 5 - 25 mg/dL LAB CHEMISTRY METHOD 10/10/2024 1:11 PM [facility] Creatinine 0.87 0.50 - 1.10 mg/dL LAB CHEMISTRY METHOD 10/10/2024 1:11 PM [facility] eGFR 74 >=60 mL/min/1. 73m2 LAB CHEMISTRY METHOD 10/10/2024 1:11 PM [facility] Comment:Calculation based on the Chronic Kidney Disease Epidemiology Collaboration (CKD-EPI) equation refit without adjustment for race. BUN/Creatinine Ratio 20.7 LAB CHEMISTRY METHOD 10/10/2024 1:11 PM [facility] Calcium 10.1 8.5 - 10.5 mg/dL LAB CHEMISTRY METHOD 10/10/2024 1:11 PM [facility] Blood Venous blood specimen / Unknown Venipuncture / Unknown 10/10/2024 7:31 AM EST 10/10/2024 11:22 AM EST us Mansoor Kwok MD LAB BLOOD ORDERABLES Final Resul t [facility] [address] [place] [address], * (ABNORMAL) Complete blood count (10/10/2024 7:31 AM EST) WBC 7.8 4.8 - 10.8 K/mcL LAB HEMETOLOGY METHOD 10/10/2024 1:24 PM EST [facility] RBC 3.60(L) 3.80 - 4.80 M/mcL LAB HEMETOLOGY METHOD 10/10/2024 1:24 PM [facility] Hemoglobin 10.7(L) 11.5 - 16.0 g/dL LAB HEMETOLOGY METHOD 10/10/2024 1:24 PM [facility] Hematocrit 35.2 35.0 - 47.0 % LAB HEMETOLOGY METHOD 10/10/2024 1:24 PM [facility] MCV 97.5 79.0 - 98.0 FL LAB HEMETOLOGY METHOD 10/10/2024 1:24 PM [facility] MCH 29.6 27.0 - 32.0 pcg LAB HEMETOLOGY METHOD 10/10/2024 1:24 PM [facility] MCHC 30.4(L) 32.0 - 37.0 g/dL LAB HEMETOLOGY METHOD 10/10/2024 1:24 PM [facility] RDW 15.1(H) 11.0 - 15.0 % LAB HEMETOLOGY METHOD 10/10/2024 1:24 PM [facility] Platelets 550(H) 130 - 400 K/mcL LAB HEMETOLOGY METHOD 10/10/2024 1:24 PM [facility] MPV 9.6 7.0 - 11.0 FL LAB HEMETOLOGY METHOD 10/10/2024 1:24 PM EST [facility] NRBC 0.0 <1.0 % LAB HEMETOLOGY METHOD 10/10/2024 1:24 PM EST [facility] NRBC Absolute 0.00 <0.10 K/mcL LAB HEMETOLOGY METHOD 10/10/2024 1:24 PM EST [facility] Blood Venous blood specimen / Unknown Venipuncture / Unknown 10/10/2024 7:31 AM EST 10/10/2024 11:22 AM EST us Mansoor Kwok MD LAB BLOOD ORDERABLES Final Resul t [facility] [address] [place] [address], documented in this encounter Visit Diagnoses Diagnosis Essential (primary) hypertension Unspecified essential hypertension documented in this encounter Care Teams Wool Grower Relationship Specialty Start Date End Date Bruno Roberts PA [address] [place] [address] PCP - General Internal Medicine 09/16/24 documented as of this encounter
--- OUTSIDE RECORDS SUMMARY | 2025-08-07 21:09 | XMS_ITS | Encounter Summary ---
Author Organization [employer] Address [address] [place] [address] Care Team Providers Care Dry Kiln Burner Name Role Phone Bruno Roberts Primary Care Provider [phone] [phone] Encounter Details Date Type Department Care Team (Late st Contact Info) Description 10/15/2024 Lab Requisition [facility] - Main Lab [address] [facility] [place] [address] Mansoor Kwok MD [address] [place] [address] 204 [facility] [address] Essential (primary) hypertension Social History [...] Associated Diagnosis Comments COMPLETE BLOOD COUNT Routine 10/17/2024 6:57 AM EST Essential (primary) hypertension BASIC METABOLIC PANEL Routine 10/17/2024 6:57 AM EST Essential (primary) hypertension documented in this encounter Results * Basic metabolic panel (10/17/2024 6:57 AM EST) Sodium 138 133 - 145 mmol/L LAB CHEMISTRY METHOD 10/17/2024 12:36 PM [facility] Potassium 3.6 3.5 - 5.5 mmol/L LAB CHEMISTRY METHOD 10/17/2024 12:36 PM [facility] Chloride 102 96 - 110 mmol/L LAB CHEMISTRY METHOD 10/17/2024 12:36 PM [facility] CO2 28 21 - 32 mmol/L LAB CHEMISTRY METHOD 10/17/2024 12:36 PM [facility] Anion Gap 8 3 - 11 LAB CHEMISTRY METHOD 10/17/2024 12:36 PM [facility] Glucose 84 70 - 100 mg/dL LAB CHEMISTRY METHOD 10/17/2024 12:36 PM [facility] BUN 17 5 - 25 mg/dL LAB CHEMISTRY METHOD 10/17/2024 12:36 PM [facility] Creatinine 0.84 0.50 - 1.10 mg/dL LAB CHEMISTRY METHOD 10/17/2024 12:36 PM [facility] eGFR 77 >=60 mL/min/1. 73m2 LAB CHEMISTRY METHOD 10/17/2024 12:36 PM [facility] Comment:Calculation based on the Chronic Kidney Disease Epidemiology Collaboration (CKD-EPI) equation refit without adjustment for race. BUN/Creatinine Ratio 20.2 LAB CHEMISTRY METHOD 10/17/2024 12:36 PM [facility] Calcium 9.7 8.5 - 10.5 mg/dL LAB CHEMISTRY METHOD 10/17/2024 12:36 PM [facility] Blood Venous blood specimen / Unknown Venipuncture / Unknown 10/17/2024 6:57 AM EST 10/17/2024 11:16 AM EST us Mansoor Kwok MD LAB BLOOD ORDERABLES Final Resul t [facility] [address] [place] [address], * (ABNORMAL) Complete blood count (10/17/2024 6:57 AM EST) WBC 3.8(L) 4.8 - 10.8 K/mcL LAB HEMETOLOGY METHOD 10/17/2024 1:56 PM [facility] RBC 3.60(L) 3.80 - 4.80 M/mcL LAB HEMETOLOGY METHOD 10/17/2024 1:56 PM [facility] Hemoglobin 11.0(L) 11.5 - 16.0 g/dL LAB HEMETOLOGY METHOD 10/17/2024 1:56 PM [facility] Hematocrit 36.0 35.0 - 47.0 % LAB HEMETOLOGY METHOD 10/17/2024 1:56 PM [facility] MCV 99.4(H) 79.0 - 98.0 FL LAB HEMETOLOGY METHOD 10/17/2024 1:56 PM [facility] MCH 30.4 27.0 - 32.0 pcg LAB HEMETOLOGY METHOD 10/17/2024 1:56 PM [facility] MCHC 30.6(L) 32.0 - 37.0 g/dL LAB HEMETOLOGY METHOD 10/17/2024 1:56 PM [facility] RDW 14.9 11.0 - 15.0 % LAB HEMETOLOGY METHOD 10/17/2024 1:56 PM [facility] Platelets 268 130 - 400 K/mcL LAB HEMETOLOGY METHOD 10/17/2024 1:56 PM [facility] Comment:Large platelets seen . Reviewed by slide MPV 10.5 7.0 - 11.0 FL LAB HEMETOLOGY METHOD 10/17/2024 1:56 PM EST [facility] NRBC 0.0 <1.0 % LAB HEMETOLOGY METHOD 10/17/2024 1:56 PM EST [facility] NRBC Absolute 0.00 <0.10 K/mcL LAB HEMETOLOGY METHOD 10/17/2024 1:56 PM EST [facility] Blood Venous blood specimen / Unknown Venipuncture / Unknown 10/17/2024 6:57 AM EST 10/17/2024 11:16 AM EST us Mansoor Kwok MD LAB BLOOD ORDERABLES Final Resul t [facility] [address] [place] [address], documented in this encounter Visit Diagnoses Diagnosis Essential (primary) hypertension Unspecified essential hypertension documented in this encounter Care Teams Dry Kiln Burner Relationship Specialty Start Date End Date Bruno Roberts PA [address] [place] [address] PCP - General Internal Medicine 09/16/24 documented as of this encounter
--- OUTSIDE RECORDS SUMMARY | 2025-08-07 21:10 | XMS_ITS | Encounter Summary ---
Author Organization [employer] Address [address] [place] [address] Care Team Providers Care Bulk Sausage Casing Tier Off Name Role Phone Bruno Roberts Primary Care Provider [phone] [phone] Encounter Details Date Type Department Care Team (Late st Contact Info) Description 09/28/2024 Lab Requisition [facility] - Main Lab 299 [facility] [place] [address] Mansoor Kwok MD [address] [place] [address] [address] [place], [address] Anemia, unspecified Social History Tobacco Use Types Packs/Day Years [...] Associated Diagnosis Comments COMPLETE BLOOD COUNT Routine 09/29/2024 6:06 AM EST Anemia, unspecified documented in this encounter Results * (ABNORMAL) Complete blood count (09/29/2024 6:06 AM EST) [facility] WBC 4.0(L) 4.8 - 10.8 K/mcL LAB HEMETOLOGY METHOD 09/29/2024 11:26 AM [facility] RBC 2.50(L) 3.80 - 4.80 M/mcL LAB HEMETOLOGY METHOD 09/29/2024 11:26 AM [facility] Hemoglobin 7.5(L) 11.5 - 16.0 g/dL LAB HEMETOLOGY METHOD 09/29/2024 11:26 AM [facility] Hematocrit 23.7(L) 35.0 - 47.0 % LAB HEMETOLOGY METHOD 09/29/2024 11:26 AM [facility] MCV 94.8 79.0 - 98.0 FL LAB HEMETOLOGY METHOD 09/29/2024 11:26 AM [facility] MCH 30.0 27.0 - 32.0 pcg LAB HEMETOLOGY METHOD 09/29/2024 11:26 AM [facility] MCHC 31.6(L) 32.0 - 37.0 g/dL LAB HEMETOLOGY METHOD 09/29/2024 11:26 AM [facility] RDW 14.4 11.0 - 15.0 % LAB HEMETOLOGY METHOD 09/29/2024 11:26 AM [facility] Platelets 290 130 - 400 K/mcL LAB HEMETOLOGY METHOD 09/29/2024 11:26 AM [facility] MPV 9.5 7.0 - 11.0 FL LAB HEMETOLOGY METHOD 09/29/2024 11:26 AM [facility] NRBC 0.0 <1.0 % LAB HEMETOLOGY METHOD 09/29/2024 11:26 AM [facility] NRBC Absolute 0.00 <0.10 K/mcL LAB HEMETOLOGY METHOD 09/29/2024 11:26 AM EST [facility] Blood Venous blood specimen / Unknown Venipuncture / Unknown 09/29/2024 6:06 AM EST 09/29/2024 9:34 AM EST us Mansoor Kwok MD LAB BLOOD ORDERABLES Final Resul t [facility] [address] [place] [address], documented in this encounter Visit Diagnoses Diagnosis Anemia, unspecified documented in this encounter Care Teams Bulk Sausage Casing Tier Off Relationship Specialty Start Date End Date Bruno Roberts PA [address] [place] [address] PCP - General Internal Medicine 09/16/24 documented as of this encounter
--- OUTSIDE RECORDS SUMMARY | 2025-08-07 21:10 | XMS_ITS | Encounter Summary ---
Author Organization [facility] Address [address] [place] [address] Care Team Providers Care Leasing Machine Tender Name Role Phone Bruno Roberts Primary Care Provider +1 -[phone] Encounter Details Date Type Department Care Team (Late st Contact Info) Description 10/22/[address] [facility] - Main Lab 299 [facility] [place] [address] Mansoor Kwko MD [address] [place] [address] Essential (primary) hypertension Social History Tobacco [...] hypertension documented in this encounter Care Teams Leasing Machine Tender Relationship Specialty Start Date End Date Bruno Roberts PA [address] [place] [address] PCP - General Internal Medicine 09/16/24 documented as of this encounter
--- OUTSIDE RECORDS SUMMARY | 2025-08-07 21:10 | XMS_ITS | Encounter Summary ---
Author Organization [facility] Address [address] [place] [address] Care Team Providers Care Field Collector Name Role Phone Bruno Roberts Primary Care Provider [phone] -[phone] Encounter Details Date Type Department Care Team (Late st Contact Info) Description 10/02/2024 Lab Requisition [facility] - Main Lab 299 [facility] [place] [address] Mansoor Kwok MD [address] [place] [address] Essential (primary) hypertension Social History Tobacco [...] hypertension documented in this encounter Care Teams Field Collector Relationship Specialty Start Date End Date Bruno Roberts PA [address] [place] [address] PCP - General Internal Medicine 09/16/24 documented as of this encounter
--- OUTSIDE RECORDS SUMMARY | 2025-08-07 21:10 | XMS_ITS | Encounter Summary ---
Author Organization [employer] Address [address] [place] [address] Care Team Providers Care Waxer Tender Name Role Phone Bruno Roberts Primary Care Provider +1 -[phone] Encounter Details Date Type Department Care Team (Late st Contact Info) Description 10/03/[address] [facility] - Main Lab 299 [facility] [place] [address] Mansoor Kwok MD [address] [place] [address] [address] [place], [address] Hyperlipidemia, unspecified; Essential (primary) hypertension; Anemia, unspecified Social History Tobacco Use Types [...] Procedure Name Priority Date/Time Associated Diagnosis Comments VITAMIN B12 AND FOLATE Routine 10/04/2024 5:39 AM EST Hyperlipidemia, unspecified Essential (primary) hypertension Anemia, unspecified IRON AND TIBC Routine 10/04/2024 5:39 AM EST Hyperlipidemia, unspecified Essential (primary) hypertension Anemia, unspecified COMPLETE BLOOD COUNT Routine 10/04/2024 5:39 AM EST Hyperlipidemia, unspecified Essential (primary) hypertension Anemia, unspecified documented in this encounter Results * (ABNORMAL) Complete blood count (10/04/2024 5:39 AM EST) [facility] WBC 7.5 4.8 - 10.8 K/mcL LAB HEMETOLOGY METHOD 10/04/2024 10:16 AM [facility] RBC 2.90(L) 3.80 - 4.80 M/mcL LAB HEMETOLOGY METHOD 10/04/2024 10:16 AM [facility] Hemoglobin 8.8(L) 11.5 - 16.0 g/dL LAB HEMETOLOGY METHOD 10/04/2024 10:16 AM [facility] Hematocrit 27.5(L) 35.0 - 47.0 % LAB HEMETOLOGY METHOD 10/04/2024 10:16 AM [facility] MCV 95.8 79.0 - 98.0 FL LAB HEMETOLOGY METHOD 10/04/2024 10:16 AM [facility] MCH 30.7 27.0 - 32.0 pcg LAB HEMETOLOGY METHOD 10/04/2024 10:16 AM [facility] MCHC 32.0 32.0 - 37.0 g/dL LAB HEMETOLOGY METHOD 10/04/2024 10:16 AM [facility] RDW 14.5 11.0 - 15.0 % LAB HEMETOLOGY METHOD 10/04/2024 10:16 AM [facility] Platelets 549(H) 130 - 400 K/mcL LAB HEMETOLOGY METHOD 10/04/2024 10:16 AM [facility] MPV 9.5 7.0 - 11.0 FL LAB HEMETOLOGY METHOD 10/04/2024 10:16 AM EST [facility] NRBC 0.0 <1.0 % LAB HEMETOLOGY METHOD 10/04/2024 10:16 AM EST [facility] NRBC Absolute 0.00 <0.10 K/mcL LAB HEMETOLOGY METHOD 10/04/2024 10:16 AM EST [facility] Blood Venous blood specimen / Unknown Venipuncture / Unknown 10/04/2024 5:39 AM EST 10/04/2024 9:26 AM EST us Mansoor Kwok MD LAB BLOOD ORDERABLES Final Resul t Performing Organization Address [facility]/ZIP Co de Phone Number [facility] [address] [place] [address], [place] [phone] * Vitamin B12 and folate (10/04/2024 5:39 AM EST) Vitamin B-12 503 250 - 900 pcg/mL LAB CHEMISTRY METHOD 10/04/2024 10:41 AM EST [facility] Folate 5.0 2.8 - 17.0 ng/ml LAB CHEMISTRY METHOD 10/04/2024 10:41 AM EST [facility] Blood Venous blood specimen / Unknown Venipuncture / Unknown 10/04/2024 5:39 AM EST 10/04/2024 9:26 AM EST us Mansoor Kwok MD LAB BLOOD ORDERABLES Final Resul t Performing Organization Address City/[facility]/ZIP Co de Phone Number [facility] [address] [place] [address], [place] [phone] * Iron and TIBC (10/04/2024 5:39 AM EST) Iron 49 40 - 150 mcg/dL LAB CHEMISTRY METHOD 10/04/2024 10:18 AM EST [facility] TIBC 283 250 - 450 mcg/dL LAB CHEMISTRY METHOD 10/04/2024 10:18 AM EST [facility] Iron Saturation 17 15 - 50 % LAB CHEMISTRY METHOD 10/04/2024 10:18 AM EST [facility] Blood Venous blood specimen / Unknown Venipuncture / Unknown 10/04/2024 5:39 AM EST 10/04/2024 9:26 AM EST us Mansoor Kwok MD LAB BLOOD ORDERABLES Final Resul t [facility] [address] [place] [address], documented in this encounter Visit Diagnoses Diagnosis Hyperlipidemia, unspecified Essential (primary) hypertension Unspecified essential hypertension Anemia, unspecified documented in this encounter Care Teams Waxer Tender Relationship Specialty Start Date End Date Bruno Roberts PA [address] [place] [address] PCP - General Internal Medicine 09/16/24 documented as of this encounter
--- OUTSIDE RECORDS SUMMARY | 2025-08-07 21:10 | XMS_ITS | Data Portability ---
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 Role Phone [facility] OTHER NEVILLE CASILLAS Primary Care Provider Assessment Encounter Date Assessment Date Assessment LastModified by Organization Details LastModified Time 10/10/2024 10/10/2024 Labs 10/10: Na 140-K 4.1-Bun 18-Cr 0.8-wbc 7.8-hgb 10.7-hct 35.2-plt 550 Not available 10/10/2024 16:44:34 10/18/2024 10/18/2024 Labs 10/10: Na 140-K 4.1-Bun 18-Cr 0.8-wbc 7.8-hgb 10.7-hct 35.2-plt 550 Not available 10/18/2024 11:37:02 Plan of Treatment Reminders Order Date Submit Date Provider Last Modified By Organization Details Last Modified Time Details Appointments None record ed. Lab None record ed. Referral None record ed. Procedures None record ed. Surgeries None record ed. Imaging None record ed. Medication Orders None record ed. Patient TargetsNo targets recorded. Patient InstructionsNo instructions recorded. Reason for Referral None Reported. Problems Name Problem SNOMED Code Status Onset Date Resolution Date Notes Provider Name and Address Organization Details Recorded Time Recurrent major depression 94626619 Completed 202409/23/2024 RITA LEONARD [address] [facility], [address], [place], [address] , [place] [facility] [employer] 14:50:44 Muscle weakness 75509999 Completed 202409/23/2024 RITA LEONARD [address] [facility], [address], [place], [address] , [facility] 5 14:50:44 Hyperlipid emia 06976648 Active 2024 Not Available [facility] 17:55:23 Lumbar spondylosi s 060973461 Completed 202409/23/2024 RITA LEONARD [address] [facility], [address], [place], [address] , [facility] 5 14:50:44 Prosthetic arthroplas ty of knee joint Completed 202409/23/2024 RITA LEONARD [address] [facility], [address], [place], [address] , [facility] 5 14:50:44 Fall Active 2024 Not Available [facility] 14:14:51 Supracondy lar fracture of humerus 716388376 Active 2024 Not Available [facility] 14:16:17 Difficulty walking 974348719 Active 2024 Not Available [facility] 09:27:09 Mixed anxiety and depressive disorder 503588130 Active 2024 RITA LEONARD [address] [facility], [address], [place], [address] , [facility] 5 14:36:01 Low blood pressure 66433000 Active 2024 RITA LEONARD [address] [facility], [address], [place], [address] , [facility] 5 14:49:07 Asthenia 34197774 Active 2024 RITA LEONARD [address] [facility], [address], [place], [address] , [facility] 5 14:51:21 Problem Notes None recorded. Medical Equipment None Reported. Allergies No known drug allergies Medications Name Sig Start Date Stop Date Status Note LastModified by Organization Details LastModified Time lamotrigine 150 mg tablet Give 1 tablet by mouth two times a day for Seizures 2024 active Not Available Not Available Not Avai lable acetaminoph en 325 mg tablet Give 2 tablet by mouth every 6 hours as needed for Mild Pain Do not exceed 3 grams in 24 hours.Tot al 650 mg AND Give 2 tablet by mouth every 6 hours as needed for Elevated Temperatu re > 101 Do not exceed 3 grams in 24 hours.Tot al 650mg 2024 active Not Available Not Available Not Avai lable ondansetron HCl 4 mg tablet Give 1 tablet by mouth every 8 hours as needed for nausea 2024 active Not Available Not Available Not Avai lable clonazepam 0.5 mg tablet Give 1 tablet by mouth every 12 hours as needed for Anxiety for 14 Days 11/05 completed Not Available Not Available Not Available sertraline 100 mg tablet Give 2 tablet by mouth one time a day for Depressio n May cause drowsines s. Avoid alcohol. 2024 active Not Available Not Available Not Avai lable oxycodone 5 mg capsule Give 1 tablet by mouth every 6 hours as needed for Severe pain. 2024 active Not Available Not Available Not Avai lable Desyrel 50 mg tablet Give 1 tablet by mouth at bedtime for Depressio n 2024 active Not Available Not Available Not Avai lable midodrine 2.5 mg tablet Give 1 tablet by mouth before meals for hypotensi on Do not administe r after the evening meal or 4 hours from bedtime to avoid supine hypertens ion. 2024 active Not Available Not Available Not Avai lable Laxative (sennosides ) 8.6 mg tablet Give 2 tablet by mouth at bedtime for Constipat ion TD=17.2mg 2024 active Not Available Not Available Not Avai lable Vitamin D2 1,250 mcg (50,000 unit) capsule Give 13920 unit by mouth one time a day every Sat for supplemen t Do not chew or crush. 2024 active Not Available Not Available Not Avai lable Tylenol Extra Strength 500 mg tablet Give 2 tablet by mouth three times a day for Pain OI=3697 mg 2024 active Not Available Not Available Not Avai lable oxycodone 5 mg tablet Give 5 mg by mouth every 12 hours as needed for c/o pain 2024 active Not Available Not Available Not Avai lable Adult Low Dose Aspirin 81 mg tablet,maricarmen yed release Give 1 tablet by mouth two times a day for DVT for 6 Weeks Take with full glass of water, do not crush. Monitor for bleeding, bruising, and black tarry stools. Give with food to minimize GI irritatio n 11/05 completed Not Available Not Available Not Available iron 325 mg (65 mg iron) tablet Give 1 tablet by mouth one time a day for Anemia. 2024 active Not Available Not Available Not Avai lable clonazepam 0.25 mg disintegrat ing tablet Give 1 tablet by mouth every 24 hours as needed for Anxiety. until 23:59 10/06 completed Not Available Not Available Not Available Abilify 5 mg tablet Give 1 tablet by mouth one time a day for Depressio n May cause drowsines s, avoid alcohol 2024 active Not Available Not Available Not Avai lable Budeprion SR 150 mg tablet, sustained release Give 3 tablet by mouth one time a day for Depressio n YT=825vl 2024 active Not Available Not Available Not Avai lable sodium phosphates 19 gram-7 gram/197 mL enema Insert 1 unit rectally every 24 hours as needed for Constipat ion Use only if Bisacodyl Supposito ry is ineffecti ve 2024 active Not Available Not Available Not Avai lable OneLAX Bisacodyl 10 mg rectal suppository Insert 1 supposito ry rectally every 24 hours as needed for constipat ion Use if Senna is Ineffecti ve 2024 active Not Available Not Available Not Avai lable Vitals Date Recorded Body height Body temperature Respiratory rate Heart rate Oxygen saturation Systolic And Diastolic Provider Name and Address Organization Details Last Updated DateTime 5 172.72 cm 97.3 [degF] 18 /min 65 /min 96 % 104/70 mm[Hg] RITA LEONARD [address] [facility], [address], [place], [address], [facility] 16:38:35 Date Recorded Body height Heart rate Respiratory rate Body mass index (BMI) Body weight Systolic And Diastolic Provider Name and Address Organization Details Last Updated DateTime 5 172.72 cm 83 /min 16 /min 17.6 kg/m2 30340.7 1 g 109/58 mm[Hg] Mansoor Kwok MD [address] , [address], [place], [address], [facility] 5 08:52:49 Social History Question Answer Notes LastModified by Organizat ion Details LastModified Time Tobacco Smoking Status Former Smoker quit 2006 Marla Flores MD [address] [facility], [address], [place], [address], [facility] 09/23/2024 16:01:52 Do You Have An Advance Directive? Yes Information not available 09/23/2024 What Is Your Level Of Caffeine Consumption? None Information not available 09/22/2024 What Is Your Code Status? DNR/DNI No Dialysis, G Tube, Or IVF [email or web address] Information not available 09/22/2024 Where Do You Live? [place] With Roommate And Friend Natali [email or web address] Information not available 09/23/2024 Legal Guardian? No Informati on not available 09/23/2024 Do You Have A Medical Power Of Beck Operator? Yes Information not available 09/23/2024 What Was The Date Of Your Most Recent Tobacco Screening? 09/22/2024 Information not available 09/22/2024 Do You Have An Out Of Hospital DNR? Yes MOLST Completed 09/21/24 [email or web address] Information not available 09/22/2024 What Is Your Relationship Status? 06/2023 Information not available 09/23/2024 How Much Tobacco Do You Smoke? No Information not available 09/23/2024 Has Tobacco Cessation Counseling Been Provided? No N/a As Pt No Longer Smokes Information not available 09/23/2024 How Many Years Have You Smoked Tobacco? 24 Information not available 09/23/2024 Do You Have Any Dietary Restrictions? No Information not available 09/22/2024 Sex: Unknown Functional Status Question Answer Note LastModified by Organizat ion Details LastModified Time Do you use any illicit or recreational drugs? No Information not available 09/22/2024 Do you or have you ever used any other forms of tobacco or nicotine? No Information not available 09/22/2024 What is your level of alcohol consumption? None Information not available 09/22/2024 Mental Status None recorded. Family History Nothing Reported Notes:N/C Medical History No medical history recorded. Gynecological HistoryNo gynecological history recorded. Obstetrics History GPAL:G 0 P 0 0 0 0 Immunizations Vaccine Type Date Status Note Provider Nam e and Address Organization Details Recorded Time Respiratory syncytial virus (RSV) vaccine, unspecified 3 completed [facility] 09/23/2024 14:58:06 Tdap 7 completed [facility] 09/23/2024 14:58:26 Td(adult) unspecified formulation 9 completed Ermedios Luigi [facility] 09/23/2024 14:58:42 Pneumococcal conjugate PCV 13 3 [facility] 15:00:32 influenza, unspecified formulation 3 completed Remedios Luigi [facility] 09/23/2024 15:00:56 SARS-COV-2 (COVID-19) vaccine, UNSPECIFIED 1 completed Remedios Luigi [facility] 09/23/2024 15:01:09 SARS-COV-2 (COVID-19) vaccine, UNSPECIFIED 1 completed Remedios Luigi [facility] 09/23/2024 15:01:17 SARS-COV-2 (COVID-19) vaccine, UNSPECIFIED 2 completed Remedios Luigi [facility] 09/23/2024 15:01:26 SARS-COV-2 (COVID-19) vaccine, UNSPECIFIED 3 completed Remedios Luigi [facility] 09/23/2024 15:01:34 zoster, unspecified formulation 3 [facility] 15:01:49 zoster, unspecified formulation 4 [facility] 15:01:57 Past Encounters Encounter ID Performer Location Encounter Start Date Encounter Closed Date Diagnosis/Indication Diagnosis SNOMED-CT Code Diagnosis ICD10 Code Diagnosis IMO Codes Diagnosis Note [id number] RITA LEONARD [address] [place] [address] 09/22/2024 07:58:41 09/27/2024 08:52:43 Supracondylar fracture of humerus 326755191 S42.412A see hpi+ CMS + radial pulsePT/OT eval and txencourag ed to wear left arm splintfor pain management continue oxycodone 5 mg q6 prnfollow up with ortho as plannedpos t op with hypotensio n and started on midodrineA SA 81 mg BID for DVT ppx for 6 weeks. Mixed anxi ety and depressive disorder 157860215 F41.8 cont trazodone ,sertralin e, abilify, bupropion, lamictal , clonazepam monitor mood and behaviors for changes Hyperlipidemia 35635526 E78.5 noted in hxnot on statinfoll ow labs prn Low blood pressure 18025 003 I95.9 cont midodrine 2.5 mg TIDmonitor BP Fall 7168058 W19.XXXA PT/OT evalMorse 25 [id number] MD LUCINDA Amaya [address] [place] [address] 09/23/2024 14:04:46 09/30/2024 16:03:48 Supracondylar fracture of humerus 310507760 S42.412D Recovering slowly.Con tinue left arm splint/sli ng.Continu e oxycodone 5 mg q 6 hrs prnContinu e ASA 81 mg BID for DVT prophylaxi s for 6 wks.Needs PT/OT for strengthen ing, balance, gait training, safety and function.C ontinue fall precaution s.Monitor for safety.F/U with ortho as planned Mixed anxi ety and depressive disorder 744934468 F41.8 Hx of visual hallucinat ions in 12/2023 with inpt stay at [facility].Co ntinue trazodone 50 mg qhs,sertra line 200 mg qd, abilify 5 mg qd, bupropion 450 mg qd, lamictal 150 mg BID, and clonazepam 0.25 mg qd prn.Monito r mood and behaviors. Psych consult. Hyperlipidemia 83061023 E78.49 In hx.On no meds.Monit or as outpt. Low blood pressure 49040 003 I95.1 Continue midodrine 2.5 mg TIDMonitor BP and sxs. Fall W19.XXXA PT/OT and safety measures as above. Impaired cognition 07723 6002 R41.89 Mild decline.No t yet invoked,, monitor for need. [id number] [place] [address] 09/24/2024 08:36:30 09/27/2024 09:46:42 Surgical incision wound of skin 7779405116 00 R23.8 sp ORIF 09/19dressi ng is saturated and tegaderm edges are peeling offreinfor ce dressingnu rsing to f/up with ortho on monencoura ged pt to keep arm still in sling Postoperative pain 80189 9007 G89.18 schedule tylenol 1000 mg tidmonitor level of pain [id number] [place] [address] 09/27/2024 15:02:32 10/03/2024 09:40:04 Surgical incision wound of skin 9067275719 00 R23.8 sp ORIF 09/19dressi ng is saturated and tegaderm edges are peeling offortho contacted today with orders for nursing to change dressing as needed for saturation Postoperative pain 61334 9007 G89.18 reports pain with movementco ntinue oxy 5 mg q6h prnmonitor level of pain Supracondy lar fracture of humerus 359388986 S42.412D Recovering slowly.Con tinue left arm splint/sli ng.Continu e oxycodone 5 mg q 6 hrs prnContinu e ASA 81 mg BID for DVT prophylaxi s for 6 wks.contin ue PT/OT for strengthen ing, balance, gait training, safety and function.f /up with ortho as planned Mixed anxi ety and depressive disorder 404633793 F41.8 Hx of visual hallucinat ions in 12/2023 with inpt stay at [facility].Co ntinue trazodone 50 mg qhs,sertra line 200 mg qd, abilify 5 mg qd, bupropion 450 mg qd, lamictal 150 mg BID, and clonazepam 0.25 mg qd prn.Monito r mood and behaviors. Psych consult. Low blood pressure 11441 003 I95.1 Continue midodrine 2.5 mg tidMonitor BP and sxs. Tremor 06137558 R25.1 pt with continous tremoron multiple psych meds (see above)aske d psychology associate to see her for possible med adjustment consider ativan for tremor [id number] CATARINA FORREST, [employer] [facility] [address] [place] [address] 09/30/2024 11:28:25 10/03/2024 12:48:39 Surgical incision wound of skin 1100974066 00 R23.8 sp ORIF 09/19dressi ng changes as neededorth o f/up as planned on 10/03 Postoperative pain 32753 9007 G89.18 reports pain with movementst art tylenol 1000 mg tiddecreas e to oxy 5 mg q8h prnmonitor level of painwean narcs as able Supracondy lar fracture of humerus 117003261 S42.412D Continue left arm splint/sli ng.Continu e oxycodone 5 mg q 6 hrs prnon ASA 81 mg BID for DVT prophylaxi s for 6 wks, hold for drop in hgbcontinu e PT/OT for strengthen ing, balance, gait training, safety and function.f /up with ortho as planned Mixed anxi ety and depressive disorder 285989170 F41.8 Hx of visual hallucinat ions in 12/2023 with inpt stay at [facility].Co ntinue trazodone 50 mg qhs,sertra line 200 mg qd, abilify 5 mg qd, bupropion 450 mg qd, lamictal 150 mg BIDMonitor mood and behaviors. Psych consult pending Low blood pressure 17916 003 I95.1 Continue midodrine 2.5 mg tidMonitor BP and sxs. Tremor 53080386 R25.1 pt with continous tremor and movementso n multiple psych meds (see above)incr eased to clonazapam 0.5 q12h prn and tremor has since resolvedco ntinue until 10/11 then re-assess Anemia 731190162 D64.9 hgb trending down from 9 to 7.5will hold asprin bid x 3 daysrepeat cbc on monoccult stool x 3start ferrous sulfate 325 mg dailyadd on iron panel, folate, B12 [id number] ZAK BELLAC [facility] [address] [place] [address] 10/04/2024 11:09:11 10/05/2024 13:37:09 Surgical incision wound of skin 9238728349 00 R23.8 sp ORIF 09/19dressi ng changes as neededstap les removed yesterdaym onitor for healing Postoperative pain 71033 9007 G89.18 pain is better controlled continue tylenol 1000 mg tiddecreas e to oxy 5 mg q12h prnmonitor level of painwean narcs as able Supracondy lar fracture of humerus 207287277 S42.412D had post op f/up with ortho yesterdayi mages with routine healingcon tinue sling and NWB but ok to do ROMdecreas e to oxy 5 mg q12h prncontinu e ASA 81 mg BID for DVT prophylaxi s for 6 wks (ends 11/05)dain nue PT/OT for strengthen ing, balance, gait training, safety and function.f /up with ortho as planned Mixed anxi ety and depressive disorder 234330051 F41.8 Hx of visual hallucinat ions in 12/2023 with inpt stay at [facility].Co ntinue trazodone 50 mg qhs,sertra line 200 mg qd, abilify 5 mg qd, bupropion 450 mg qd, lamictal 150 mg BIDMonitor mood and behaviors. Psych consult pending Tremor 09054183 R25.1 tremor, fidgeting and movements have improved with clonazapam on multiple psych meds (see above)cont inue clonazapam 0.5 q12h prncontinu e until 10/11 then re-assess Low blood pressure 28541 003 I95.1 no syncopeCon tinue midodrine 2.5 mg tidMonitor BP and sxs. Anemia 919389310 D64.9 asa held and supp iron started with increase in hgb to 8.8iron, folate, vit b normalsusp ected in the setting of surgery with blood losshgb trending back up now to 8.8, baseline around 9restart aspirinrep eat cbc every mon to trendconti nue ferrous sulfate 325 mg daily [id number] SILVA RENDON, [employer] [address]UCINDA [address] [place] [address] 10/10/2024 16:36:59 10/11/2024 14:29:40 Supracondylar fracture of humerus 498159635 S42.412A + CMS + radial pulsecont PT/OT -continue oxycodone 5 mg q6 prnfollow up with ortho as planned nect appt 4/15ASA 81 mg BID for DVT ppx for 6 weeks. Mixed anxi ety and depressive disorder 843801482 F41.8 cont trazodone ,sertralin e, abilify, bupropion, lamictal , clonazepam mood has been stable Low blood pressure 50026 003 I95.9 cont midodrine 2.5 mg TIDBP stable 100-120s Fall W19.XXXA no reported fall, makes progress with PT/OT [id number] CATARINA FORREST, [place] [address] 10/18/2024 11:14:24 10/20/2024 10:02:06 Supracondylar fracture of humerus 536783677 S42.412A + CMS + radial pulsecont PT/OT -continue oxycodone 5 mg q6 prnfollow up with ortho as planned nect appt 4/7ASA 81 mg BID for DVT ppx for 6 weeks.gayle ins NWB Mixed anxi ety and depressive disorder 087811799 F41.8 cont trazodone ,sertralin e, abilify, bupropion, lamictal , clonazepam mood has been stabletrem ors have resolved Low blood pressure 39034 003 I95.9 cont midodrine 2.5 mg TIDBP stable 100-120sno dizziness up and walking without assist Surgical i ncision wound of skin 6821161279 00 R23.8 sp ORIF 09/19healin g well Postoperative pain 93261 9007 G89.18 pain is better controlled continue tylenol 1000 mg tidwill dc oxymonitor level of pain Tremor 37641141 R25.1 tremor, fidgeting and movements have resolved with clonazapam on multiple psych meds (see above)cont inue clonazapam 0.5 q12h prncontinu e through 10/21 then re-assess Anemia 503380215 D64.9 hgb now 11 from 7.5suspect ed anemia in the setting of blood losscontin ue ferrous sulfate 325 mg dailymonit or as needed [id number] Mansoor Kwok MD [facility] [address] [place] [address] 10/21/2024 08:52:12 10/25/2024 08:33:20 Supracondylar fracture of humerus 534484339 S42.412A follow ortho recs and update with concernNWB till cleared by orthof/u SA 81 mg bid for DVT prophylaxi scontinue home therapy Mixed anxi ety and depressive disorder 272130858 F41.8 stable on out patient medication s - continued Low blood pressure 54842 003 I95.89 currently maintained on midodrine 2.5 mg TIDmonitor need to titrate Health Concerns Section Related Observation LastModified by Organization Detai ls LastModified Time None Recorded Concern Status LastModified by Organization Details LastModified Time None Recorded Advance Directives Directive Y: Payers Insurance Date Sequence Insurance Name Policy Number Policy Tejada Covered Member ID Tejada Member ID Guarantor Name 10/25/2024 1 [facility] Dulce Mukherjee [id number] Dulcelópez Mukherjee Notes Date Note Type Note Provider Name and Address Organization Details Recorded Time 09/30/2024 text/html This is a 64 yo woman who is here for rehab after an acute hospitalization for nondisplaced mildly comminuted fracture of the left supracondylar humerus s/p ORIF on 09/19. Following up on pt who had a significant tremor. Her clonazapam was increased and tremor now improved. Her pain has been better controlled using prn oxy. Arm remains in a sling. Nursing to change dressing prn and has f/up with ortho scheduled. Hgb is trending down steadily to 7.5. Unclear if this is blood loss, other than elbow incision no visible blood loss. As I am watching her she is coloring quietly with no tremors. SHe received a phone call, something financial which seemed to worry her and mild tremors noted. CECILIA BELLA [address] [facility], [address], [place], [address], [facility] 09/30/2024 11:52:51 10/04/2024 text/html This is a 64 yo woman who is here for rehab after an acute hospitalization for nondisplaced mildly comminuted fracture of the left supracondylar humerus s/p ORIF on 09/19. Patient had ortho f/up yesterday with XRAY. Her pain is well controlled on tylenol and prn oxy that was decreased on 09/30. Her tremors have improved with clonazapam dosing and her excessive movements and fidgeting seem better as I watch her in the dining room. Her arm remains in a sling. Hgb has been trending back up to 8.8, started on supp iron. She actively participates in therapy. Therapy tells me she is doing very well and the tremors that were limiting her are no longer an issue. CECILIA BELLA [address] [facility], [address], [place], [address], [facility] 10/04/2024 11:24:57 10/10/2024 text/html This is a 64 yr old female patient seen for acute rounding visit. Patient is here for rehab for s/p left humerus fx. She is doing well, eating and drinking ok. she is progressing towards goals for a safe discharge with therapy. He pain is controlled. per nursing there is no acute concerns, she is compliant with medications and care. RITA LEONARD [address] [facility], [address], [place], [address], [facility] 10/11/2024 14:01:59 10/18/2024 text/html This is a 64 yr old female patient seen for 30 day routine rounding visit. Patient is here for rehab for s/p left humerus fx. Patient is progressing very well since her admit here. Her tremors have resolved. She is now axox4 with no confusion. She socializes and engages in unit acitvities. Her pain is well controlled. She participates with therapy and tells me she is able to do her ADLs. SHe had a f/up on 10/03 with ortho and she remains NWB and has another f/up 11/28. She is wondering when she will be able to go home. CECILIA BELLA [address] [place] [address], [address], [place], [address], [facility] 10/18/2024 11:40:51 10/21/2024 text/html Patient is a 64 yo female resident seen in preparation for discharge. Patient was initially admit for rehab after an acute hospitalization for nondisplaced mildly comminuted fracture of the left supracondylar humerus s/p ORIF on 09/19. She presented to [facility] ED on 09/16 after a fall described as sliding out of her chair. She was able to get up and call EMS.Xray and CT showed Nondisplaced, mildly comminuted fracture of the supracondylar humerus .Labs were non-acute.She was taken to the OR on 09/19 for an ORIF.She had some hypotension postop and was started on midodrine.She was transferred here on 09/21. Patient has progressed with therapy now independent with ambulation able to complete ADLs. Left arm in sling Progressing to discharge with services and f/u appt with ortho in place. Mansoor Kwok MD [address] [facility], [address], [place], [address], [facility] 10/21/2024 09:08:38 OBGyn Episode No OBEpisode recorded.
--- OUTSIDE RECORDS SUMMARY | 2025-08-07 21:10 | XMS_ITS | Encounter Summary ---
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 - Main Lab [address] [facility] [place] [address] Mansoor Kwok MD [address] [place] [address] [address] [facility] [phone] Essential (primary) hypertension; Hyperlipidemia, unspecified Social History Tobacco Use Types Packs/Day [...] Associated Diagnosis Comments COMPLETE BLOOD COUNT Routine 09/26/2024 6:59 AM EST Essential (primary) hypertension Hyperlipidemia, unspecified BASIC METABOLIC PANEL Routine 09/26/2024 6:59 AM EST Essential (primary) hypertension Hyperlipidemia, unspecified documented in this encounter Results * (ABNORMAL) Complete blood count (09/26/2024 6:59 AM EST) [facility] Signature WBC 7.1 4.8 - 10.8 K/mcL LAB HEMETOLOGY METHOD 09/26/2024 1:45 PM [facility] RBC 2.70(L) 3.80 - 4.80 M/mcL LAB HEMETOLOGY METHOD 09/26/2024 1:45 PM [facility] Hemoglobin 8.3(L) 11.5 - 16.0 g/dL LAB HEMETOLOGY METHOD 09/26/2024 1:45 PM [facility] Hematocrit 26.5(L) 35.0 - 47.0 % LAB HEMETOLOGY METHOD 09/26/2024 1:45 PM [facility] MCV 96.7 79.0 - 98.0 FL LAB HEMETOLOGY METHOD 09/26/2024 1:45 PM [facility] MCH 30.3 27.0 - 32.0 pcg LAB HEMETOLOGY METHOD 09/26/2024 1:45 PM [facility] MCHC 31.3(L) 32.0 - 37.0 g/dL LAB HEMETOLOGY METHOD 09/26/2024 1:45 PM [facility] RDW 14.4 11.0 - 15.0 % LAB HEMETOLOGY METHOD 09/26/2024 1:45 PM [facility] Platelets 295 130 - 400 K/mcL LAB HEMETOLOGY METHOD 09/26/2024 1:45 PM [facility] MPV 9.5 7.0 - 11.0 FL LAB HEMETOLOGY METHOD 09/26/2024 1:45 PM [facility] NRBC 0.0 <1.0 % LAB HEMETOLOGY METHOD 09/26/2024 1:45 PM [facility] NRBC Absolute 0.00 <0.10 K/mcL LAB HEMETOLOGY METHOD 09/26/2024 1:45 PM [facility] Blood Venous blood specimen / Unknown Venipuncture / Unknown 09/26/2024 6:59 AM EST 09/26/2024 11:49 AM EST us Mansoor Kwok MD LAB BLOOD ORDERABLES Final Resul t [facility] [address] [place] [address], * (ABNORMAL) Basic metabolic panel (09/26/2024 6:59 AM EST) Sodium 135 133 - 145 mmol/L LAB CHEMISTRY METHOD 09/26/2024 4:38 PM [facility] Potassium 3.6 3.5 - 5.5 mmol/L LAB CHEMISTRY METHOD 09/26/2024 4:38 PM [facility] Chloride 102 96 - 110 mmol/L LAB CHEMISTRY METHOD 09/26/2024 4:38 PM [facility] CO2 26 21 - 32 mmol/L LAB CHEMISTRY METHOD 09/26/2024 4:38 PM [facility] Anion Gap 7 3 - 11 LAB CHEMISTRY METHOD 09/26/2024 4:38 PM [facility] Glucose 95 70 - 100 mg/dL LAB CHEMISTRY METHOD 09/26/2024 4:38 PM [facility] BUN 26(H) 5 - 25 mg/dL LAB CHEMISTRY METHOD 09/26/2024 4:38 PM [facility] Creatinine 0.73 0.50 - 1.10 mg/dL LAB CHEMISTRY METHOD 09/26/2024 4:38 PM [facility] eGFR 91 >=60 mL/min/1. 73m2 LAB CHEMISTRY METHOD 09/26/2024 4:38 PM EST [facility] Comment:Calculation based on the Chronic Kidney Disease Epidemiology Collaboration (CKD-EPI) equation refit without adjustment for race. BUN/Creatinine Ratio 35.6 LAB CHEMISTRY METHOD 09/26/2024 4:38 PM [facility] Calcium 9.1 8.5 - 10.5 mg/dL LAB CHEMISTRY METHOD 09/26/2024 4:38 PM [facility] Blood Venous blood specimen / Unknown Venipuncture / Unknown 09/26/2024 6:59 AM EST 09/26/2024 11:49 AM EST us Mansoor Kwok MD LAB BLOOD ORDERABLES Final Resul t [facility] [address] [place] [address], documented in this encounter Visit Diagnoses Diagnosis Essential (primary) hypertension Unspecified essential hypertension Hyperlipidemia, unspecified documented in this encounter Care Teams Oxygen Plant Operator Relationship Specialty Start Date End Date Bruno Roberts PA [address] [place] [id number] PCP - General Internal Medicine 09/16/24 documented as of this encounter
--- OUTSIDE RECORDS SUMMARY | 2025-08-07 21:10 | XMS_ITS | Clinical Summary ---
Author Organization [facility] Address [address] [place] [address] Phone Care Team Providers Care Traffic Signal Mechanic Name Role Phone Bruno Roberts Primary Care Provider [phone] Allergies No known active allergies Medications ergocalciferol (VITAMIN D-2) 1,250 mcg (50,000 unit) capsule 4 Active ARIPiprazole (ABILIFY) 5 mg tablet Take 1 tablet (5 mg total) by mouth 1 (one) time each day. 90 tablet 3 5 Active buPROPion XL (WELLBUTRIN XL) 300 mg 24 hr tablet Take 1 tablet (300 mg total) by mouth 1 (one) time each day. Do not crush, chew, or split. 90 tablet 3 5 Active clonazePAM (KlonoPIN) 1 mg tablet Take 1 tablet (1 mg total) by mouth 3 (three) times a day if needed for anxiety. Max Daily Amount: 3 mg 84 tablet 5 Active lamoTRIgine (LaMICtal) 100 mg tablet Take 1 tablet (100 mg total) by mouth 2 (two) times a day. To be taken with additional 75mg BID 180 tablet 3 5 Active lamoTRIgine (LaMICtal) 25 mg tablet Take 3 tablets (75 mg total) by mouth 2 (two) times a day. 540 each 3 5 Active midodrine (PROAMATINE) 2.5 mg tablet Take 1 tablet (2.5 mg total) by mouth 3 (three) times a day before meals. 270 each 5 Active sertraline (ZOLOFT) 100 mg tablet Take 2 tablets (200 mg total) by mouth 1 (one) time each day. 180 each 3 5 Active mirtazapine (REMERON) 15 mg tablet Take 1 tablet (15 mg total) by mouth at bedtime. 90 each 3 5 Active traZODone (DESYREL) 100 mg tablet Take 1 tablet (100 mg total) by mouth at bedtime as needed for sleep. 90 tablet 3 5 Active Active Problems Problem Noted Date Diagnosed Date Depression 12/29/2024 Status post total knee replacement 09/19/2024 Closed fracture of left elbow 09/16/2024 Hyperlipidemia 10/10/2022 Overview (08/12/2024): ASCVD score 2.8% Osteoarthritis of lumbar spine 08/13/2017 Recurrent major depressive disorder 02/17/2017 Cervical os stenosis 01/24/2015 Other specified health status 10/05/2012 Overview (08/12/2024): Varicose vein Resolved Problems Problem Noted Date Diagnosed Date Resolved Date Left elbow fracture, closed, initial encounter 09/17/2024 09/21/2024 Encounters Date Type Department Care Team Description 08/05/2025 3:03 PM EST - 08/07/2025 1:55 PM [facility] [address] [place] [id number] Rodrigo Zheng MD Zaidi, Mansoor Anwer, MD Kokkinos, Erika, MD Mogul, Ashley, MD Anxiety (Primary Dx); Suicidal ideation Discharge Disposition: [facility] 08/04/2025 Telephone Adult Medicine [address] [phone] Bruno Roberts PA 07/27/2025 Telephone Adult Medicine [address] [phone] Akil Drake LPN 07/24/2025 7:07 PM EST - 07/24/2025 9:45 PM [facility] [address] [place] [address] Regino Lorenzana MD Anxiety (Primary Dx) Discharge Disposition: Home or Self Care 07/05/2025 Telephone Adult Medicine [address] [phone] Edna Nunez PA 07/05/2025 Telephone Adult [address] [phone] Edna Nunez PA 05/19/2025 Telephone Adult Medicine [address] [phone] Akil Drake LPN 05/11/2025 Telephone Adult [address] [phone] Fatuma Singleton MD from Last 3 Months Immunizations Immunization Administration Dates Next Due Influenza Quadravalent, MDCK , 0.5ml, preservative free (Flucelvax) 6mo and older 08/07/2022,05/30/2021,05/10/2020,2016 Influenza trivalent, 0.5mL ( Fluad) 65yo and older 07/13/2023 Influenza trivalent, 0.5mL, preservative free (Fluarix; FluLaval; Fluzone) ages 6mo and older (Afluria) 3 years and older 07/15/2019,07/30/2018,06/06/2015,2011,05/29/2008 Influenza trivalent, with preservative (Fluzone; Afluria) 6mo and older 06/08/2016,06/21/2014,06/08/2013,2009 Influenza, Unspecified 07/16/2019,06/06/2015 Pneumococcal conjugate 20 va lent (Prevnar 20, PCV 20) 2mo and older 08/07/2023 RSV, bivalent, protein subun it RSVpreF, 0.5mL, Preservative Free (Arexvy) 50yo and older 07/13/2023 Td Tetanus diptheria (Tdvax) 7yo and older 09/09/2018 Tdap Tetanus diptheria acell ular pertussis (Boostrix; Adacel) 7yo and older 04/30/2007 Zoster recombinant (Shingrix ) 19yo and older 11/09/2023,08/07/2023 Surgical History Surgery Date Site/Laterality Comments WISDOM TOOTH EXTRACTION PROCEDURE: HISTORICAL WISDOM TEETH EXTRACTION COLONOSCOPY PROCEDURE: HISTORICAL COLONOSCOPY BREAST BIOPSY 2009 Left PROCEDURE: BX BREAST; PERC NEEDLE CORE W/IMAG GUID; COMMENT: cyst asp b9 Medical History Medical History Date Comments Depressive disorder, not els ewhere classified 04/30/2007 DX:Depressive disorder, not elsewhere classified Anxiety state, unspecified 04/30/2007 DX:An xiety state, unspecified Family History Medical History Relation Name Comments Breast cancer Aunt p ?age Father's Side Alcohol abuse Brother 1 depression No Known Problems Brother 2 Kidney cancer Father No Known Problems Maternal Grandfather No Known Problems Maternal Grandmother Hypertension Mother No Known Problems Paternal Grandfather No Known Problems Paternal Grandmother Colon cancer Neg Hx Ovarian cancer Neg Hx Relation Name Status Comments Aunt p ?age Brother 1 (Age 50) Brother 2 Alive Father (Age 70) Maternal Grandfather Maternal Grandmother Mother (Age 82) Paternal Grandfather Paternal Grandmother Social History Tobacco Use Types Packs/Day Years Used Date Smoking Tobacco: Former Cigarettes 1 24.4 0 08/24/1982 - 01/22/2007 Smokeless Tobacco: Never Tobacco Cessation:Counseling Given: Not Answered Alcohol Use Standard Drinks/Week Comments Not Currently [...] Record ed Within the last 3 months, sara ordoñez many times did you visit the emergency [...] for your loved ones. For example, child protective services specialist or elderly care for an older adult? [...] Orientation Straight 09/16/2024 11 :04 PM EST Obstetrics History Para Term AB IAB SAB Ectopic Multiple Livin g Live Births 0 0 0 Last Filed Vital Signs Vital Sign Reading [...] Mass Index 19.77 08/05/2025 2:24 PM EST Plan of Treatment Health Maintenance Due Date Last Done Comments Colorectal Cancer Screening: Colonoscopy 1960 Non-Opioid Controlled Substance Agreement 1960 COVID-19 Vaccine ( season) 2025 05/10/2025, 07/13/2023, 08/07/2022, Additional history exists Falls Risk Assessment 12/30/2025 12/30/2024 Drug Screen 08/05/2026 08/05/2025, 08/2024, 02/07/2025, Additional history exists Social Influencers of Health Screening 08/05/2026 08/05/2025 Breast Cancer Screening 04/13/2027 04/13/20, 04/06/2024, 04/06/2024, Additional history exists DTaP,Tdap,and Td Vaccines (3 - Td or Tdap) 09/09/2028 09/09/2018, 04/30/2007 Cholesterol Screening (Lipid Panel) 11/30/2029 11/30/2024, 10/31/2024, 10/09/2022 Osteoporosis Screening (Bone Density Screening) 02/06/2035 02/06/2025 Hepatitis C Screening Completed 12/22/2012 RSV Immunization Adult Patients Completed 07/13/2023 Pneumococcal Vaccine: 50+ Years Completed 08/07/2023 Zoster Vaccines Completed 11/09/2023, 08/07/2023 Depression Screening Completed 10/31/2024 Influenza Vaccine Discontinued 05/10/2025, , 08/07/2022, Additional history exists HIB Vaccines Aged Out No longer eligi ble based on patient's age to complete this topic HPV Vaccines Aged Out No longer eligi ble based on patient's age to complete this topic Hepatitis A Vaccines Aged Out No long er eligible based on patient's age to complete this topic Hepatitis B Vaccines Aged Out No long er eligible based on patient's age to complete this topic IPV Vaccines Aged Out No longer eligi ble based on patient's age to complete this topic MMR Vaccines Aged Out No longer eligi ble based on patient's age to complete this topic Meningococcal ACWY Vaccine Aged Out N o longer eligible based on patient's age to complete this topic Meningococcal B Vaccine Aged Out No l onger eligible based on patient's age to complete this topic RSV Immunization Patients Under 20 months Aged Out No longer eligible based on patient's age to complete this topic Varicella Vaccines Aged Out No longer eligible based on patient's age to complete this topic Medical Devices Implanted Type 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 Diversified Crops Device Identifier Shelf Expiration Date Model / Serial / Lot Cement Bone Surg Simplex Radiopq - Sn/A - [id number] Implanted:Qty: 1 on 09/19/2024 by Gilma Car MD at [facility] Bone Cement Left: Arm [employer] 6191-1-01 0 / N/A / N/A Plate Distl Lat 3.5mm 3hl L Lcp Posterolat Hum - Snone - [id number] Implanted:Qty: 1 on 09/19/2024 by Gilma Car MD at [facility] Internal and External Fixation Left: Arm [employer] 09/19/2025 241.273 / NONE / NONE Screw Locking 3.5x18mm Selftap Self Tap Stardrive Recss - Sn/A - [id number] Implanted:Qty: 1 on 09/19/2024 by Gilma Car MD at [facility] Internal and External Fixation Left: Arm Office[employer] Constant Therapy 212.105 / N/A / N/A Screw Locking 3.5x16mm Self Tap Stardrive Recss - Sn/A - [id number] Implanted:Qty: 1 on 09/19/2024 by Gilma Car MD at [facility] Internal and External Fixation Left: Arm [facility] Constant Therapy 212.104 / N/A / N/A Screw Lk Ss Slftp T8 2.7x16 Tina Angl - Sn/A - [id number] Implanted:Qty: 1 on 09/19/2024 by Gilma Car MD at [facility] Internal and External Fixation Left: Gagandeep DUNBAR PANCHOParentingInformer SYNTHES 02.211.01 6 / N/A / N/A Screw Locking 3.5x14mm Self Tap Stardrive Recss - Sn/A - [id number] Implanted:Qty: 1 on 09/19/2024 by Gilma Car MD at [facility] Internal and External Fixation Left: [facility] PANCHOParentingInformer SYNTHES 212.103 / N/A / N/A Plate Distl Med 3.5mm 3hl L Lcp Hum - Snone - [id number] Implanted:Qty: 1 on 09/19/2024 by Gilma Car MD at [facility] Internal and External Fixation Left: Gagandeep DUNBAR PANCHOUY SYNTHES 09/19/2025 241.283 / NONE / NONE Screw Cortex 3.5x22mm Self Tap - Snone - [id number] Implanted:Qty: 1 on 09/19/2024 by Gilma Car MD at [facility] Internal and External Fixation Left: [facility] MANJINDER DEPUY SYNTHES 09/19/2026 204.822 / NONE / NONE Screw Cortex 3.5x24mm Self Tap - Snone - [id number] Implanted:Qty: 1 on 09/19/2024 by Gilma Car MD at [facility] Internal and External Fixation Left: [facility] MANJINDER DEPUY SYNTHES 09/19/2026 204.824 / NONE / NONE Screw Cortex 3.5x28mm Self Tap - Snone - [id number] Implanted:Qty: 1 on 09/19/2024 by Gilma Car MD at [facility] Internal and External Fixation Left: [facility] MANJINDER HUNT Mobile [employer]Y SYNTHES 09/19/2026 204.828 / NONE / NONE Screw Lk Ss Slftp T8 2.7x18 Tina Angl - Snone - [id number] Implanted:Qty: 1 on 09/19/2024 by Gilma Car MD at [facility] Internal and External Fixation Left: [facility] MANJINDER HUNT Mobile [employer] SYNTHES 09/19/2026 02.211.01 8 / NONE / NONE Screw Lk Ss Slftp T8 2.7x22 Tina Angl - Snone - [id number] Implanted:Qty: 2 on 09/19/2024 by Gilma Car MD at [facility] Internal and External Fixation Left: Arm ALYSSIA DEPUY SYNTHES 09/19/2026 02.211.02 2 / NONE / NONE Screw Lk Ss Slftp T8 2.7x20 Tina Angl - Snone - [id number] Implanted:Qty: 2 on 09/19/2024 by Gilma Car MD at [facility] Internal and External Fixation Left: Arm [facility] DEPUY SYNTHES 09/19/2026 02.211.02 0 / NONE / NONE Explanted Type 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 [employer] Device Identifier Shelf Expiration Date Model / Serial / Lot Screw Cortex 3.5x20mm Self Tap - Snone - [id number] Explanted:Qty: 2 on 09/19/2024 at [facility] Internal and External Fixation Arm [facility] DEPUY SYNTHES 09/19/2026 204.820 / NONE / NONE Procedures Procedure Name Priority Date/Time Associated Diagnosis Comments ECG 12-LEAD STAT 08/05/2025 3:43 PM EST CBC WITH AUTO DIFFERENTIAL STAT 08/05/2025 3:14 PM EST METHADONE SCREEN, URINE STAT 08/05/2025 3:14 PM EST PHENCYCLIDINE, URINE STAT 08/05/2025 3:14 PM EST BUPRENORPHINE SCREEN, URINE STAT 08/05/2025 3:14 PM EST DRUG ABUSE SCREEN 8A PANEL, URINE STAT 08/05/2025 3:14 PM EST SALICYLATE LEVEL STAT 08/05/2025 3:14 PM EST ACETAMINOPHEN LEVEL STAT 08/05/2025 3 :14 PM EST ETHANOL STAT 08/05/2025 3:14 PM EST COMPREHENSIVE METABOLIC PANEL STAT 08/05/2025 3:14 PM EST CBC AND DIFFERENTIAL STAT 08/05/2025 3:14 PM EST ECG ANNOTATED 07/25/2025 ECG 12-LEAD STAT 07/24/2025 8:42 PM EST METHADONE SCREEN, URINE STAT 07/24/2025 8:14 PM EST PHENCYCLIDINE, URINE STAT 07/24/2025 8:14 PM EST BUPRENORPHINE SCREEN, URINE STAT 07/24/2025 8:14 PM EST DRUG ABUSE SCREEN 8A PANEL, URINE STAT 07/24/2025 8:14 PM EST CBC WITH AUTO DIFFERENTIAL STAT 07/24/2025 8:03 PM EST SALICYLATE LEVEL STAT 07/24/2025 8:03 PM EST ACETAMINOPHEN LEVEL STAT 07/24/2025 8 :03 PM EST ETHANOL STAT 07/24/2025 8:03 PM EST COMPREHENSIVE METABOLIC PANEL STAT 07/24/2025 8:03 PM EST CBC AND DIFFERENTIAL STAT 07/24/2025 8:03 PM EST MG MAMMO DIGITAL SCREENING W DEANGELO BILAT Routine 04/13/2025 3:14 PM EDT Encounter for screening mammogram for breast cancer LIPID PANEL WITH REFLEX TO DIRECT LDL Routine 11/30/2024 2:06 PM EDT Drug therapy Hyperlipidemia, unspecified hyperlipidemia type HM HEPATITIS C SCREENING Routine 12/22/2012 from Last 3 Months or Most Recently Relevant to Health Maintenance Results * ECG 12 lead (08/05/2025 3:43 PM EST) Only the most recent of2 resultswithin the time period is included. Ventricular Rate ECG 85 BPM GEMUSE Atrial Rate 85 BPM GEMUSE P-R Interval 170 ms GEMUSE QRS Duration 82 ms GEMUSE Q-T Interval 340 ms GEMUSE QTc 404 ms GEMUSE P Wave [place] 78 degrees GEMUSE R [place] 70 degrees GEMUSE T [place] 38 degrees GEMUSE ECG Interpretation Normal sinus rhythm Nonspecific ST and T wave abnormality Abnormal ECG When compared with ECG of 24-JUL-2025 20:42, T wave inversion less evident in Inferior leads T wave inversion no longer evident in Lateral leads Confirmed by MD Yifan, Adonay ([id number]) on 08/06/2025 11:37:05 PM GEMUSE 08/05/2025 3:43 PM EST 08/06/2025 11:37 PM EST us Rodrigo Zheng MD ECG ORDERABLES Final Result GEMUSE * (ABNORMAL) Drug abuse screen 8a panel, urine (08/05/2025 3:14 PM EST) Only the most recent of2 resultswithin the time period is included. Amphetamine Screen, Ur Negative Negative 08/05/2025 3:55 PM EST [facility] Comment:Certain OTC medicati ons containing ephedrine, phenylephrine, pseudoephedrine and phenylpropanolamine can cause false positive results. Barbiturate Screen, Ur Negative Negative 08/05/2025 3:55 PM EST [facility] Benzodiazepine Screen, Ur Positive(A ) Negative 08/05/2025 3:55 PM [facility] Cocaine Screen, Ur Negative Negative 2024 3:55 PM [facility] Opiate Screen, Ur Negative Negative 025 3:55 PM [facility] Cannabinoid (THC) Screen, Ur Negative Negative 08/05/2025 3:55 PM [facility] Comment:Specimens from patie nts taking pantoprazole sodium (Protonix) have been shown to produce false positive results. Oxycodone Screen, Ur Negative Negative 07/24 3:55 PM EST [facility] Fentanyl, Ur Negative Negative 08/05/2025 3:55 PM EST [facility] Urine Urine specimen obtained by clean catch procedure / Unknown Non-blood Collection / Unknown 08/05/2025 3:14 PM EST 08/05/2025 3:21 PM EST [facility] - 08/05/2025 3:55 PM EST Assay [...] MD LAB URINE ORDERABLES Final Resu lt [facility] [address] [place] [address], * Buprenorphine screen, urine (08/05/2025 3:14 PM EST) Only the most recent of2 resultswithin the time period is included. Buprenorphine Screen Urine Negative Negative 08/05/2025 3:53 PM EST [facility] Urine Urine specimen obtained by clean catch procedure / Unknown Non-blood Collection / Unknown 08/05/2025 3:14 PM EST 08/05/2025 3:21 PM EST [facility] - 08/05/2025 3:53 PM EST Assay cutoff 5 ng/mL Semi-quantitative assay for screening purposes only. Unconfirmed screening result should not be used for non-medical purposes. *ALTERNATE METHOD CONFIRMATION DONE UPON REQUEST ONLY* Rodrigo Zheng MD LAB URINE ORDERABLES Final Resu lt Performing Organization Address [facility]/ZIP Co de Phone Number [facility] [address] [place] [address], [place] [phone] * Methadone, urine (08/05/2025 3:14 PM EST) Only the most recent of2 resultswithin the time period is included. Pathologist [facility] Methadone Screen, Urine Negative Negative 08/05/2025 3:55 PM EST [facility] Comment: Assay cutoff 300 ng/mL [...] ORDERABLES Final Resu lt Performing Organization Address [facility] de Phone Number [facility] [address] [place] [address], [place] [phone] * CBC auto differential (08/05/2025 3:14 PM EST) Only the most recent of2 resultswithin the time period is included. [facility] WBC 9.6 4.8 - 10.8 K/mcL LAB HEMETOLOGY METHOD 08/05/2025 3:36 PM EST [facility] RBC 4.70 3.80 - 4.80 M/mcL LAB HEMETOLOGY METHOD 08/05/2025 3:36 PM EST [facility] Hemoglobin 13.8 11.5 - 16.0 g/dL LAB HEMETOLOGY METHOD 08/05/2025 3:36 PM EST [facility] Hematocrit 42.7 35.0 - 47.0 % LAB HEMETOLOGY METHOD 08/05/2025 3:36 PM [facility] MCV 91.4 79.0 - 98.0 FL LAB HEMETOLOGY METHOD 08/05/2025 3:36 PM [facility] MCH 29.6 27.0 - 32.0 pcg LAB HEMETOLOGY METHOD 08/05/2025 3:36 PM [facility] MCHC 32.3 32.0 - 37.0 g/dL LAB HEMETOLOGY METHOD 08/05/2025 3:36 PM [facility] RDW 13.1 11.0 - 15.0 % LAB HEMETOLOGY METHOD 08/05/2025 3:36 PM [facility] Platelets 277 130 - 400 K/mcL LAB HEMETOLOGY METHOD 08/05/2025 3:36 PM [facility] MPV 10.5 7.0 - 11.0 FL LAB HEMETOLOGY METHOD 08/05/2025 3:36 PM [facility] NRBC 0.0 <1.0 % LAB HEMETOLOGY METHOD 08/05/2025 3:36 PM [facility] NRBC Absolute 0.00 <0.10 K/mcL LAB HEMETOLOGY METHOD 08/05/2025 3:36 PM [facility] Neutrophils Relative 69.2 % LAB HEMETOLOGY METHOD 08/05/2025 3:36 PM [facility] Lymphocytes Relative 23.9 % LAB HEMETOLOGY METHOD 08/05/2025 3:36 PM [facility] Monocytes Relative 5.5 % LAB HEMETOLOGY METHOD 08/05/2025 3:36 PM [facility] Eosinophils Relative 0.8 % LAB HEMETOLOGY METHOD 08/05/2025 3:36 PM [facility] Basophils Relative 0.3 % LAB HEMETOLOGY METHOD 08/05/2025 3:36 PM [facility] Immature Granulocytes Relative 0.3 % LAB HEMETOLOGY METHOD 08/05/2025 3:36 PM EST [facility] Neutrophils Absolute 6.63 1.50 - 7.00 K/mcL LAB HEMETOLOGY METHOD 08/05/2025 3:36 PM EST [facility] Lymphocytes Absolute 2.29 1.00 - 5.00 K/mcL LAB HEMETOLOGY METHOD 08/05/2025 3:36 PM EST [facility] Monocytes Absolute 0.53 0.20 - 1.00 K/mcL LAB HEMETOLOGY METHOD 08/05/2025 3:36 PM EST [facility] Eosinophils Absolute 0.08 0.00 - 0.50 K/[facility] LAB HEMETOLOGY METHOD 08/05/2025 3:36 PM [facility] Basophils Absolute 0.03 0.00 - 0.20 K/mcL LAB HEMETOLOGY METHOD 08/05/2025 3:36 PM EST [facility] Immature Granulocytes Absolute 0.03 0.00 - 0.03 K/[facility] HEMETOLOGY METHOD 08/05/2025 3:36 PM [facility] Blood Venous blood specimen / Unknown Venipuncture / Unknown 08/05/2025 3:14 PM EST 08/05/2025 3:21 PM EST us Rodrigo Zheng MD LAB BLOOD ORDERABLES Final Resu lt [facility] [address] [place] [address], * Phencyclidine, urine (08/05/2025 3:14 PM EST) Only the most recent of2 resultswithin the time period is included. PCP Scrn, Ur Negative Negative 08/05/2025 3:55 PM EST [facility] Comment: Assay cutoff 25 ng/mL [...] ORDERABLES Final Resu lt Performing Organization Address [facility] de Phone Number [facility] [address] [place] [address], [place] [phone] * Ethanol (08/05/2025 3:14 PM EST) Only the most recent of2 resultswithin the time period is included. Ethanol Level <3 0 - 10 mg/dL 08/05/2025 4:08 PM EST [facility] Blood Venous blood specimen / Unknown Venipuncture / Unknown 08/05/2025 3:14 PM EST 08/05/2025 3:21 PM EST Rodrigo Zheng MD LAB BLOOD ORDERABLES Final Resu lt Performing Organization Address [facility] de Phone Number [facility] [address] [place] [address], [place] [phone] * (ABNORMAL) Acetaminophen level (08/05/2025 3:14 PM EST) Only the most recent of2 resultswithin the time period is included. Acetaminophen Level <2.0(L) 10.0 - 30.0 mcg/mL 08/05/2025 3:57 PM EST [facility] Blood Venous blood specimen / Unknown Venipuncture / Unknown 08/05/2025 3:14 PM EST 08/05/2025 3:21 PM EST Rodrigo Zheng MD LAB BLOOD ORDERABLES Final Resu lt Performing Organization Address [facility] Phone Number [facility] [address] [place] [address], [place] [phone] * Salicylate level (08/05/2025 3:14 PM EST) Only the most recent of2 resultswithin the time period is included. Salicylate Level <3.0 2.0 - 29.0 mg/dL 08/05/2025 4:08 PM [facility] Blood Venous blood specimen / Unknown Venipuncture / Unknown 08/05/2025 3:14 PM EST 08/05/2025 3:21 PM EST Rodrigo Zheng MD LAB BLOOD ORDERABLES Final Resu lt Performing Organization Address [facility]/ZIP Co de Phone Number [facility] [address] [place] [address], * (ABNORMAL) Comprehensive metabolic panel (08/05/2025 3:14 PM EST) Only the most recent of2 resultswithin the time period is included. Sodium 140 133 - 145 mmol/L 08/05/2025 3:57 PM [facility] Potassium 4.0 3.5 - 5.5 mmol/L 08/05/2025 3:57 PM [facility] Chloride 101 96 - 110 mmol/L 08/05/2025 3:57 PM [facility] CO2 29 21 - 32 mmol/L 08/05/2025 3:57 PM [facility] Anion Gap 10 3 - 11 08/05/2025 3:57 PM [facility] Glucose 101(H) 70 - 100 mg/dL 08/05/2025 3:57 PM [facility] BUN 27(H) 5 - 25 mg/dL 08/05/2025 3:57 PM [facility] Creatinine 1.09 0.50 - 1.10 mg/dL 08/05/2025 3:57 PM [facility] eGFR 56(L) >=60 mL/min/1. 73m2 08/05/2025 3:57 PM [facility] Comment:Calculation based on the Chronic Kidney Disease Epidemiology Collaboration (CKD-EPI) equation refit without adjustment for race. BUN/Creatinine Ratio 24.8 08/05/2025 3:57 PM [facility] Calcium 9.9 8.5 - 10.5 mg/dL 08/05/2025 3:57 PM [facility] AST (SGOT) 19 10 - 42 unit/L 08/05/2025 3:57 PM [facility] ALT (SGPT) 15 10 - 60 unit/L 08/05/2025 3:57 PM [facility] Alkaline Phosphatase 122(H) 42 - 121 unit/L 08/05/2025 3:57 PM [facility] Total Protein 7.1 6.0 - 8.0 g/dL 08/05/2025 3:57 PM [facility] Albumin 4.6 3.2 - 5.0 g/dL 08/05/2025 3:57 PM [facility] Total Bilirubin 0.4 0.0 - 1.4 mg/dL 08/05/2025 3:57 PM [facility] Blood Venous blood specimen / Unknown Venipuncture / Unknown 08/05/2025 3:14 PM EST 08/05/2025 3:21 PM EST us Rodrigo Zheng MD LAB BLOOD ORDERABLES Final Resu lt [facility] [address] [place] [address], * ECG-Annotated (07/25/2025) us Provider Onbase MD ECG ORDERABLES Final Result * MG Mammo Digital Screening w Deangelo bilat (04/13/2025 3:14 PM EDT) Anatomical Region Laterality Modality Breast Bilateral Mammography 04/17/2025 1:11 PM EDT Impressions 04/17/2025 1:14 PM EDT 1. No mammographic evidence of malignancy 2. Scattered fibroglandular tissue BI-RADS CATEGORY: 2 - BENIGN RECOMMENDATION: Screening bilateral mammogram is recommended in 1 year. Mammo Location: [facility], [address] [place] [address], [id number], . -------- FINAL REPORT -------- Dictated By: Key Jeter Dictated Date: 04/17/2025 13:11 ET Assigned Physician: Key Jeter Reviewed and Electronically Signed By: Key Jeter Signed Date: 04/17/2025 13:14 ET Workstation ID: [id number] Transcribed By: Self Edit Transcribed Date: 04/17/2025 13:11 ET Narrative 04/17/2025 1:14 PM EDT A BILATERAL DIGITAL 3D SCREENING MAMMOGRAPHY HISTORY: Routine screening. Family history of breast cancer in aunt COMPARISON: Multiple priors dating back to 11/30/2020 Technique: Bilateral full field digital mammography (3D) was performed using standard CC and MLO projections CAD was used to evaluate this mammogram. FINDINGS: Right: No suspicious masses, groups of microcalcification or areas of architectural distortion identified. Stable typically benign parenchymal asymmetries. Right breast MLO above the nipple middle depth asymmetry is grossly stable. Left: No suspicious masses, groups of microcalcification or areas of architectural distortion identified. Stable typically benign parenchymal asymmetries. BREAST DENSITY: B - There are scattered areas of fibroglandular density. Procedure Note Key Jeter MD - 04/17/2025 A BILATERAL DIGITAL 3D SCREENING MAMMOGRAPHY HISTORY: Routine screening. Family history of breast cancer in aunt COMPARISON: Multiple priors dating back to 11/30/2020 Technique: Bilateral full field digital mammography (3D) was performedusing standard CC and MLO projections CAD was used to evaluate this mammogram. FINDINGS: Right: No suspicious masses, groups of microcalcification or areas ofarchitectural distortion identified. Stable typically benign parenchymalasymmetries. Right breast MLO above the nipple middle depth asymmetry isgrossly stable. Left: No suspicious masses, groups of microcalcification or areas ofarchitectural distortion identified. Stable typically benign parenchymalasymmetries. BREAST DENSITY: B - There are scattered areas of fibroglandular density. IMPRESSION: 1. No mammographic evidence of malignancy 2. Scattered fibroglandular tissue BI-RADS CATEGORY: 2 - BENIGN RECOMMENDATION: Screening bilateral mammogram is recommended in 1 year. Mammo Location: [facility], [address] [place] [address], [id number], . -------- FINAL REPORT -------- Dictated By: Key Jeter Dictated Date: 04/17/2025 13:11 ET Assigned Physician: Key Jeter Reviewed and Electronically Signed By: Key Jeter Signed Date: 04/17/2025 13:14 ET Workstation ID: [id number] Transcribed By: Self Edit Transcribed Date: 04/17/2025 13:11 ET Bruno BENAVIDEZ IMG BI PROCEDURES Final R esult * Lipid panel with reflex to direct LDL (11/30/2024 2:06 PM EDT) Cholesterol 173 0 - 200 mg/dL LAB CHEMISTRY METHOD 11/30/2024 5:10 PM EDT [facility] Triglycerides 89 0 - 150 mg/dL LAB CHEMISTRY METHOD 11/30/2024 5:10 PM EDT [facility] HDL 57 >=40 mg/dL LAB CHEMISTRY METHOD 11/30/2024 5:10 PM EDT [facility] LDL Calculated 98 0 - 100 mg/dL LAB CHEMISTRY METHOD 11/30/2024 5:10 PM EDT [facility] VLDL Cholesterol Christian 17.8 mg/dL LAB CHEMISTRY METHOD 11/30/2024 5:10 PM EDT [facility] Non HDL Chol. (LDL+VLDL) 116 <145 mg/dL LAB CHEMISTRY METHOD 11/30/2024 5:10 PM EDT [facility] Chol/HDL Ratio 3.0 0.0 - 4.4 LAB CHEMISTRY METHOD 11/30/2024 5:10 PM EDT [facility] Blood Venous blood specimen / Unknown Venipuncture / Unknown 11/30/2024 2:06 PM EDT 11/30/2024 2:06 PM EDT Ann Guillen MD LAB BLOOD ORDERABLES Final Resul t [facility] [address] [place] [address], * Hepatitis C Screening (12/22/2012) [facility] Hepatitis C Screening Abstracted Historical Provider HEALTH MAINTENANCE Final Result from Last 3 Months or Most Recently Relevant to Health Maintenance Insurance [facility] Advance Directives Documents on File Type Date Recorded Patient Internal Controls Manager Expl anation Advance Directives and Livin g Will 09/22/2024 9:09 AM PROXY Advance Directives and Livin g Will 09/19/2024 9:22 AM PROXY * Full Code - Default (Latest Code Status on File) Date Activated Date Inactivated Comments 09/17/2024 9:17 AM 09/21/2024 7:19 PM This is orde r is used when code status has not been discussed with the patient, or code status is otherwise unknown/unconfirmed To update the patient's code status, place a code status order. Do not modify or discontinue any currently active code status orders. Care Teams Traffic Signal Mechanic Relationship Specialty Start Date End Date Bruno Roberts PA [address] [place] [address] PCP - General Internal Medicine 09/16/24
--- OUTSIDE RECORDS SUMMARY | 2025-08-07 21:10 | XMS_ITS | Encounter Summary ---
Author Organization [facility] Address [address] [place] [address] Care Team Providers Care Kiln Charger Name Role Phone Bruno Roberts Primary Care Provider [phone] Encounter Details Date Type Department Care Team (Late st Contact Info) Description 09/22/[address] [facility] - Main Lab [address] [facility] [place] [address] Mansoor Kwok MD [address] [place] [address] [address], [phone] Hyperlipidemia, unspecified Social History Tobacco Use Types [...] Associated Diagnosis Comments COMPLETE BLOOD COUNT Routine 09/22/2024 6:12 AM EST Hyperlipidemia, unspecified COMPREHENSIVE METABOLIC PANEL Routine 09/22/2024 6:12 AM EST Hyperlipidemia, unspecified documented in this encounter Results * Comprehensive metabolic panel (09/22/2024 6:12 AM EST) Sodium 137 133 - 145 mmol/L LAB CHEMISTRY METHOD 09/22/2024 10:45 AM [facility] Potassium 4.1 3.5 - 5.5 mmol/L LAB CHEMISTRY METHOD 09/22/2024 10:45 AM [facility] Chloride 102 96 - 110 mmol/L LAB CHEMISTRY METHOD 09/22/2024 10:45 AM [facility] CO2 27 21 - 32 mmol/L LAB CHEMISTRY METHOD 09/22/2024 10:45 AM [facility] Anion Gap 8 3 - 11 LAB CHEMISTRY METHOD 09/22/2024 10:45 AM [facility] Glucose 85 70 - 100 mg/dL LAB CHEMISTRY METHOD 09/22/2024 10:45 AM [facility] BUN 12 5 - 25 mg/dL LAB CHEMISTRY METHOD 09/22/2024 10:45 AM [facility] Creatinine 0.86 0.50 - 1.10 mg/dL LAB CHEMISTRY METHOD 09/22/2024 10:45 AM [facility] eGFR 75 >=60 mL/min/1. 73m2 LAB CHEMISTRY METHOD 09/22/2024 10:45 AM [facility] Comment:Calculation based on the Chronic Kidney Disease Epidemiology Collaboration (CKD-EPI) equation refit without adjustment for race. BUN/Creatinine Ratio 14.0 LAB CHEMISTRY METHOD 09/22/2024 10:45 AM [facility] Calcium 9.4 8.5 - 10.5 mg/dL LAB CHEMISTRY METHOD 09/22/2024 10:45 AM [facility] AST (SGOT) 41 10 - 42 unit/L LAB CHEMISTRY METHOD 09/22/2024 10:45 AM [facility] ALT (SGPT) 19 10 - 60 unit/L LAB CHEMISTRY METHOD 09/22/2024 10:45 AM EST [facility] Alkaline Phosphatase 74 42 - 121 unit/L LAB CHEMISTRY METHOD 09/22/2024 10:45 AM [facility] Total Protein 6.4 6.0 - 8.0 g/dL LAB CHEMISTRY METHOD 09/22/2024 10:45 AM [facility] Albumin 3.9 3.2 - 5.0 g/dL LAB CHEMISTRY METHOD 09/22/2024 10:45 AM [facility] Total Bilirubin 0.5 0.0 - 1.4 mg/dL LAB CHEMISTRY METHOD 09/22/2024 10:45 AM [facility] Blood Venous blood specimen / Unknown Venipuncture / Unknown 09/22/2024 6:12 AM EST 09/22/2024 9:33 AM EST us Mansoor Kwok MD LAB BLOOD ORDERABLES Final Resul t [facility] [address] [place] [address], [place] [phone] * (ABNORMAL) Complete blood count (09/22/2024 6:12 AM EST) WBC 9.6 4.8 - 10.8 K/mcL LAB HEMETOLOGY METHOD 09/22/2024 10:10 AM [facility] RBC 3.10(L) 3.80 - 4.80 M/mcL LAB HEMETOLOGY METHOD 09/22/2024 10:10 AM [facility] Hemoglobin 9.5(L) 11.5 - 16.0 g/dL LAB HEMETOLOGY METHOD 09/22/2024 10:10 AM [facility] Hematocrit 29.4(L) 35.0 - 47.0 % LAB HEMETOLOGY METHOD 09/22/2024 10:10 AM [facility] MCV 95.5 79.0 - 98.0 FL LAB HEMETOLOGY METHOD 09/22/2024 10:10 AM EST [facility] MCH 30.8 27.0 - 32.0 pcg LAB HEMETOLOGY METHOD 09/22/2024 10:10 AM EST [facility] MCHC 32.3 32.0 - 37.0 g/dL LAB HEMETOLOGY METHOD 09/22/2024 10:10 AM EST [facility] RDW 13.7 11.0 - 15.0 % LAB HEMETOLOGY METHOD 09/22/2024 10:10 AM EST [facility] Platelets 230 130 - 400 K/mcL LAB HEMETOLOGY METHOD 09/22/2024 10:10 AM EST [facility] MPV 10.8 7.0 - 11.0 FL LAB HEMETOLOGY METHOD 09/22/2024 10:10 AM EST [facility] NRBC 0.0 <1.0 % LAB HEMETOLOGY METHOD 09/22/2024 10:10 AM [facility] NRBC Absolute 0.00 <0.10 K/mcL LAB HEMETOLOGY METHOD 09/22/2024 10:10 AM [facility] Blood Venous blood specimen / Unknown Venipuncture / Unknown 09/22/2024 6:12 AM EST 09/22/2024 9:33 AM EST us Mansoor Kwok MD LAB BLOOD ORDERABLES Final Resul t [facility] [address] [place] [address], documented in this encounter Visit Diagnoses Diagnosis Hyperlipidemia, unspecified documented in this encounter Care Teams Kiln Charger Relationship Specialty Start Date End Date Bruno Roberts PA [address] [place] [id number] PCP - General Internal Medicine 09/16/24 documented as of this encounter
[2025-08-08 07:46] LABS: Alanine Aminotransferase 12 U/L (0-31); Albumin Level 3.8 g/dL (3.5-5.0); Alkaline Phosphatase 88 U/L (39-117); Anion Gap 11 (12-20); Aspartate Amino Transferase 18 U/L (5-31); Blood Urea Nitrogen 26 mg/dL (9-16); Calcium 9.3 mg/dL (8.4-10.2); Carbon Dioxide 27 mmol/L (22-29); Chloride 107 mmol/L (96-108); Cholesterol 156 mg/dL (<200); Creatinine Clr Calc Pharmacy 47.0; Estimated Glomerular Filt Rate 52; HDL Cholesterol 49 mg/dL (>40); Potassium 4.4 mmol/L (3.3-5.1); Sodium 141 mmol/L (135-145); Total Protein 6.1 g/dL (6.5-8.0); Triglycerides 85 mg/dL (<150)
[2025-08-08 08:00] VITALS: BP 96/52; PULSE 78; RESP 16; TEMP 36.7; O2SAT 96
[2025-08-08 08:00] LABS: Free T4 (Free Thyroxine) 0.94 ng/dL (0.71-1.85); Thyroid Stimulating Hormone 0.62 uIU/mL (0.32-4.0)
--- NOTE | 2025-08-08 08:07 | P.CONHOSP_ITS ---
History of Present Illness Data of Consult Service Date: 08/08/25 Primary Care Provider: Unknown Physician HPI Reason for consult: Medical consult 65-year-old female with a past medical history of depression, left elbow fracture with ORIF October, stage IIIA CKD, anxiety, tobacco misuse, hypotension presented to the emergency department at [facility] with SI and increased anxiety. Patient has not been taking her meds for at least 3 weeks per historical record due to confusion about her medication regime. In the emergency room her lab work revealed mildly decreased GFR, no transaminitis, no electrolyte imbalances. No anemia or no leukocytosis. U tox positive for benzos. Urine negative for infection. On exam she denies any medical concerns. Patient had a fractured elbow which required an ORIF October. Was started on midodrine for hypotension at that time. Patient blood pressure is, she is afebrile, no tachycardia. Denies any dizziness, lightheadedness, headaches, abdominal pain or any other concerning symptoms. Lipid panel within normal limits. A1c 5.9. Review of Systems 2 Review of Systems: Patient has no acute medical complaints at this time All other systems are reviewed and are negative PMFSH Social History Household Members: Other Household Members Other:: Roommate Housing: Other Housing Other:: Mobile home Do you presently have visiting nurse or other home services: Yes ([facility]) Comment: 5 min Patient Tobacco Use Status: Never used Tobacco Have you been hit, kicked, punched, or otherwise hurt by someone within the past year? If so, by whom?: No Do you feel safe in your current relationship?: No Current Relationship Is there a partner from a previous relationship who is making you feel unsafe now?: No Are you made to feel afraid or neglected: No Advance Directives: No Advance Directives Information Provided: Yes Do you have thoughts of harming others: None Do you have a plan to hurt others: No Plan Recently lost weight without trying: Yes How much weight loss: 24-33 pounds Eating poorly because of decreased appetite: Yes Nutrition screen score: 6 Patient : No : No Poor oral hygiene: No service: No Sexual orientation: Straight/Heterosexual Meds Allergies Allergy/AdvReac Type Severity Reaction Status Date / Time No Known Allergies Allergy Verified 08/07/25 15:22 Active Medications: Current Medications Acetaminophen (Acetaminophen 325 Mg Tablet) 650 mg PO Q6H PRN PRN Reason: Headache/Pain, Scale 1-10 Al Hydroxide/Mg Hydroxide (Magnesium Hydrox/Alum Hydrox 30 Ml Oral.Susp) 30 ml PO Q6H PRN PRN Reason: Heartburn/Nausea Aripiprazole (Aripiprazole 5 Mg Tablet) 5 mg PO DAILY [facility] Bupropion HCl (Bupropion Hcl Xl 300 Mg Tab.Er.24h) 300 mg PO DAILY [facility] Clonazepam (Clonazepam 0.5 Mg Tablet) 0.5 mg PO TID [facility] Last Admin: 08/07/25 20:29 Dose: 0.5 mg Ergocalciferol (Ergocalciferol (Vitamin D2) 1,250 Mcg Capsule) 1,250 mcg PO Th@0900 [facility] Hydroxyzine HCl (Hydroxyzine Hcl 25 Mg Tablet) 25 mg PO Q6H PRN PRN Reason: mild anxiety Lamotrigine (Lamotrigine 100 Mg Tablet) 100 mg PO BID [facility] Last Admin: 08/07/25 20:28 Dose: 100 mg Magnesium Hydroxide (Milk Of Magnesia 30 Ml Oral.Susp) 30 ml PO DAILY PRN PRN Reason: Constipation Midodrine (Midodrine Hcl 2.5 Mg Tablet) 2.5 mg PO TID@0900,1300,1700 [facility] Last Admin: 08/07/25 16:43 Dose: 2.5 mg Sertraline HCl (Sertraline Hcl 100 Mg Tablet) 200 mg PO DAILY [facility] Trazodone HCl (Trazodone Hcl 50 Mg Tablet) 50 mg PO BEDTIME MRX1 PRN PRN Reason: Insomnia Last Admin: 08/07/25 22:11 Dose: 50 mg Physical Exam 2 Vital Signs and Narrative: Vital Signs: Last Vital Signs Temp 98.0 F 08/08/25 08:00 Pulse 78 08/08/25 08:00 Resp 16 08/08/25 08:00 BP 96/52 L 08/08/25 08:00 Pulse Ox 96 08/08/25 08:00 O2 Del Method Room Air 08/08/25 08:00 BMI result Body Mass Index 19.2 Alert and oriented X3, calm and cooperative. Answers questions. Thin. Neuro: CN II-X11 intact, no deficits, visual acuity intact EYES: PERRLA, EOM intact ENT: Hearing intact, MMM Cardiac: S1 S2 RRR, No ectopy Pulmonary: lungs clear to auscultation, No increased WOB. Abdominal: BS active in all 4 quadrants, no guarding or tenderness MSK: Strength 5/5 upper and lower extremities : Deferred Extremities: No edema in lower extremities Psych: Mood stable, Quiet and cooperative. Skin: Warm and dry, Intact Results Labs 08/08/25 07:20 Labs: Laboratory Results - last 24 hr 08/08/25 07:20 Anion Gap 11 L Estim Creat Clear Calc 47.0 Estimated GFR 52 Random Glucose 95 Estimat Average Glucose 123 Hemoglobin A1c % 5.9 Calcium 9.3 Total Bilirubin 0.2 AST 18 ALT 12 Alkaline Phosphatase 88 Total Protein 6.1 L Albumin 3.8 Triglycerides 85 Cholesterol 156 LDL Cholesterol, Calc 90 HDL Cholesterol 49 TSH 0.62 Free T4 0.94 Assessment and Plan (1) Hypotension: Status: Acute (2) Stage 3a chronic kidney disease: Status: Acute Plan 65-year-old female with past medical history listed below presented to the [facility] ED with increased anxiety and SI. Now admitted for inpatient stabilization. Anxiety/depression/SI Treatment per psychiatric team Hypotension Currently asymptomatic Continue on midodrine t.i.d. Stage IIIA CKD Labs consistent with stage 3 chronic kidney disease Avoid nephrotoxins. Tobacco misuse Encouraged smoking cessation, NRT if needed Thank you for allowing me to participate in the care of this patient. Will follow with you, please notify medical provider with any changes in condition or concerns.
[2025-08-08 08:09] LABS: Vitamin B12 381 pg/mL (200-900)
[2025-08-08] MEDS: buPROPion HCl XL 300 MG TAB.ER.24H PO (08:34)
--- NOTE | 2025-08-08 08:43 | HO.PSYCHPN ---
Subjective Subjective Date of Service: 08/08/25 Reason For Visit: Major Depressive disorder severe Subjective Notes: Conditional Voluntary Interim History: Pt reports sleeping well with medications. She denies SI/HI. She shows this marine underwriter tremors and how they affect her function. No SI/HI. taking medications. awating moca/acl. Review of Systems Review of Systems Patient has no acute medical complaints at this time All other systems are reviewed and are negative Mental Status Exam Mental Status Exam Narrative: Appearance: wearing hospital gown, thin, hair slightly unkempt, in NAD Behavior: cooperative Psychomotor: action tremors mostly. not so much resting tremors. Speech: clear, normal rate/rhythm/volume, spontaneous TP: linear TC: having difficulty remembering Mood: better Affect: congruent,constricted SI: denies HI: denies VH/AH: none Delusions: no delusional content Insight/judgment: fair x 2. Memory/cog: alert, oriented x 3. pending MOCA/ACL. Diagnostics Vital Signs (24Hr): Vital Signs - 24 hr 08/07/25 14:55 08/07/25 16:38 08/07/25 20:00 Temperature 97.5 F 98.1 F Pulse Rate 79 81 74 Respiratory Rate 16 16 16 Blood Pressure 95/53 L 104/56 L 100/55 L Pulse Oximetry 96 96 Oxygen Delivery Method Room Air Room Air 08/08/25 08:00 Temperature 98.0 F Pulse Rate 78 Respiratory Rate 16 Blood Pressure 96/52 L Pulse Oximetry 96 Oxygen Delivery Method Room Air BMI result Body Mass Index 19.2 Labs 08/08/25 07:20 Labs: Laboratory Results - last 48 hr 08/08/25 07:20 Sodium 141 Potassium 4.4 Chloride 107 Carbon Dioxide 27 Anion Gap 11 L BUN 26 H Creatinine 1.05 Estim Creat Clear Calc 47.0 Estimated GFR 52 Random Glucose 95 Estimat Average Glucose 123 Hemoglobin A1c % 5.9 Calcium 9.3 Total Bilirubin 0.2 AST 18 ALT 12 Alkaline Phosphatase 88 Total Protein 6.1 L Albumin 3.8 Triglycerides 85 Cholesterol 156 LDL Cholesterol, Calc 90 HDL Cholesterol 49 Vitamin B12 381 TSH 0.62 Free T4 0.94 Medications Medications Current Medications Acetaminophen (Acetaminophen 325 Mg Tablet) 650 mg PO Q6H PRN PRN Reason: Headache/Pain, Scale 1-10 Al Hydroxide/Mg Hydroxide (Magnesium Hydrox/Alum Hydrox 30 Ml Oral.Susp) 30 ml PO Q6H PRN PRN Reason: Heartburn/Nausea Aripiprazole (Aripiprazole 5 Mg Tablet) 5 mg PO DAILY [facility] Last Admin: 08/08/25 08:33 Dose: 5 mg Bupropion HCl (Bupropion Hcl Xl 300 Mg Tab.Er.24h) 300 mg PO DAILY [facility] Last Admin: 08/08/25 08:34 Dose: 300 mg Clonazepam (Clonazepam 0.5 Mg Tablet) 0.5 mg PO TID [facility] Last Admin: 08/08/25 08:34 Dose: 0.5 mg Ergocalciferol (Ergocalciferol (Vitamin D2) 1,250 Mcg Capsule) 1,250 mcg PO Th@0900 [facility] Hydroxyzine HCl (Hydroxyzine Hcl 25 Mg Tablet) 25 mg PO Q6H PRN PRN Reason: mild anxiety Lamotrigine (Lamotrigine 100 Mg Tablet) 100 mg PO BID [facility] Last Admin: 08/08/25 08:34 Dose: 100 mg Magnesium Hydroxide (Milk Of Magnesia 30 Ml Oral.Susp) 30 ml PO DAILY PRN PRN Reason: Constipation Midodrine (Midodrine Hcl 2.5 Mg Tablet) 2.5 mg PO TID@0900,1300,1700 [facility] Last Admin: 08/08/25 08:33 Dose: 2.5 mg Sertraline HCl (Sertraline Hcl 100 Mg Tablet) 200 mg PO DAILY [facility] Last Admin: 08/08/25 08:33 Dose: 200 mg Trazodone HCl (Trazodone Hcl 50 Mg Tablet) 50 mg PO BEDTIME MRX1 PRN PRN Reason: Insomnia Last Admin: 08/07/25 22:11 Dose: 50 mg Allergies Allergies Allergy/AdvReac Type Severity Reaction Status Date / Time No Known Allergies Allergy Verified 08/07/25 15:22 Assessment & Plan Assessment & Plan (1) Major depressive disorder: Status: Acute Code(s): F32.9 - Major depressive disorder, single episode, unspecified (2) PTSD (post-traumatic stress disorder): Status: Acute Code(s): F43.10 - Post-traumatic stress disorder, unspecified (3) Cognitive impairment: Status: Acute Code(s): R41.89 - Other symptoms and signs involving cognitive functions and awareness Plan Mrs. Mukherjee is a 65 year-old woman with hx of MDD, PTSD who self presented to [facility] after stopping medication as pt reports got confused as to how to take them. Utox was positive for benzo, so clonazepam may have been medication she was taking. She had similar admission to back in 01/2025 due to not being able to take medications as prescribed due to cognitive impairments. Pt does have action tremors and although pt reports this is due to anxiety, I do suspect this is due to underlying movement disorder. She has been rpescribed clonazepam 1mg po TID- which I do think is a high dose for pt and we should try to lower it. Also, do wonder if sense of restlessnes is due to akathisia with abilify- need to pace and move. Will stop it. Continue sertraline 200mg po daily. May be worth trial of propanolol for tremors as they seem more essential tremors than parkinsonism. 08/08 continue current medications. clonazepam has been lowered to 0.5mg po TID. abilify has been stopped. continue sertraline. may consider adding propanolol for essential tremors. Reason for continued inpatient stay Substantial Risk for: inability to function Time Spent With Patient Time: Total time managing care of this patient today ____ minutes.
[2025-08-08 12:22] VITALS: BP 93/54
--- NOTE | 2025-08-08 13:45 | MHC.CLN ---
consult pt reported 30# wt loss x 6 months current wt 57.3kg (08/07/25) previous wt hx 56.1 kg (02/16/25) Pt with 2% wt gain x 6 months no new orders continue current care plan
[2025-08-08 16:33] VITALS: BP 108/64
[2025-08-08 20:00] VITALS: BP 109/57; PULSE 68; TEMP 37; O2SAT 98
[2025-08-09 08:00] VITALS: BP 97/56; PULSE 70; RESP 16; TEMP 36.5; O2SAT 97
[2025-08-09] MEDS: buPROPion HCl XL 300 MG TAB.ER.24H PO (08:39)
[2025-08-09 12:11] VITALS: BP 105/55
--- NOTE | 2025-08-09 12:51 | HO.PSYCHPN ---
Subjective Subjective Date of Service: 08/09/25 Reason For Visit: Major Depressive disorder severe Subjective Notes: Conditional Voluntary Interim History: Pt reports she slept well. She did not remember meeting with this curriculum writer yesterday. She reports she feels less anxious and less depressed. She denies SI/HI. She asks about the change in dose of clonazepam, which this curriculum writer explained that 3mg/day is too high. Also again explained that abilify was dc as it may be causing restlessness and need to pace. MOCA completed , ACL 3.4 Review of Systems Review of Systems Patient has no acute medical complaints at this time All other systems are reviewed and are negative Mental Status Exam Mental Status Exam Narrative: Appearance: wearing hospital gown, thin, hair slightly unkempt, in NAD Behavior: cooperative Psychomotor: action tremors mostly. not so much resting tremors. Speech: clear, normal rate/rhythm/volume, spontaneous TP: linear TC: having difficulty remembering Mood: better Affect: congruent,constricted SI: denies HI: denies VH/AH: none Delusions: no delusional content Insight/judgment: fair x 2. Memory/cog: alert, oriented x 3. MOCA completed , ACL 3.4 showing severe cognitive impairments. Diagnostics Vital Signs (24Hr): Vital Signs - 24 hr 08/08/25 16:33 08/08/25 20:00 08/09/25 08:00 Temperature 98.6 F 97.7 F Pulse Rate 68 70 Respiratory Rate 16 Blood Pressure 108/64 109/57 L 97/56 L Pulse Oximetry 98 97 Oxygen Delivery Method Room Air Room Air 08/09/25 12:11 Temperature Pulse Rate Respiratory Rate Blood Pressure 105/55 L Pulse Oximetry Oxygen Delivery Method BMI result Body Mass Index 19.2 Labs 08/08/25 07:20 Labs: Laboratory Results - last 48 hr 08/08/25 07:20 Sodium 141 Potassium 4.4 Chloride 107 Carbon Dioxide 27 Anion Gap 11 L BUN 26 H Creatinine 1.05 Estim Creat Clear Calc 47.0 Estimated GFR 52 Random Glucose 95 Estimat Average Glucose 123 Hemoglobin A1c % 5.9 Calcium 9.3 Total Bilirubin 0.2 AST 18 ALT 12 Alkaline Phosphatase 88 Total Protein 6.1 L Albumin 3.8 Triglycerides 85 Cholesterol 156 LDL Cholesterol, Calc 90 HDL Cholesterol 49 Vitamin B12 381 TSH 0.62 Free T4 0.94 Medications Medications Current Medications Acetaminophen (Acetaminophen 325 Mg Tablet) 650 mg PO Q6H PRN PRN Reason: Headache/Pain, Scale 1-10 Al Hydroxide/Mg Hydroxide (Magnesium Hydrox/Alum Hydrox 30 Ml Oral.Susp) 30 ml PO Q6H PRN PRN Reason: Heartburn/Nausea Bupropion HCl (Bupropion Hcl Xl 300 Mg Tab.Er.24h) 300 mg PO DAILY [facility] Last Admin: 08/09/25 08:39 Dose: 300 mg Clonazepam (Clonazepam 0.5 Mg Tablet) 0.5 mg PO TID [facility] Last Admin: 08/09/25 08:39 Dose: 0.5 mg Ergocalciferol (Ergocalciferol (Vitamin D2) 1,250 Mcg Capsule) 1,250 mcg PO Th@0900 [facility] Hydroxyzine HCl (Hydroxyzine Hcl 25 Mg Tablet) 25 mg PO Q6H PRN PRN Reason: mild anxiety Lamotrigine (Lamotrigine 100 Mg Tablet) 100 mg PO BID [facility] Last Admin: 08/09/25 08:39 Dose: 100 mg Magnesium Hydroxide (Milk Of Magnesia 30 Ml Oral.Susp) 30 ml PO DAILY PRN PRN Reason: Constipation Midodrine (Midodrine Hcl 2.5 Mg Tablet) 2.5 mg PO TID@0900,1300,1700 [facility] Last Admin: 08/09/25 12:11 Dose: 2.5 mg Sertraline HCl (Sertraline Hcl 100 Mg Tablet) 200 mg PO DAILY [facility] Last Admin: 08/09/25 08:39 Dose: 200 mg Allergies Allergies Allergy/AdvReac Type Severity Reaction Status Date / Time No Known Allergies Allergy Verified 08/07/25 15:22 Assessment & Plan Assessment & Plan (1) Major depressive disorder: Status: Acute Code(s): F32.9 - Major depressive disorder, single episode, unspecified (2) PTSD (post-traumatic stress disorder): Status: Acute Code(s): F43.10 - Post-traumatic stress disorder, unspecified (3) Major neurocognitive disorder: Status: Acute Code(s): F03.90 - Unspecified dementia, unspecified severity, without behavioral disturbance, psychotic disturbance, mood disturbance, and anxiety Plan Mrs. Mukherjee is a 65 year-old woman with hx of MDD, PTSD who [facility] medication as pt reports got confused as to how to take them. Utox was positive for benzo, so clonazepam may have been medication she was taking. She had similar admission to back in 01/2025 due to not being able to take medications as prescribed due to cognitive impairments. Pt does have action tremors and although pt reports this is due to anxiety, I do suspect this is due to underlying movement disorder. She has been rpescribed clonazepam 1mg po TID- which I do think is a high dose for pt and we should try to lower it. Also, do wonder if sense of restlessnes is due to akathisia with abilify- need to pace and move. Will stop it. Continue sertraline 200mg po daily. May be worth trial of propanolol for tremors as they seem more essential tremors than parkinsonism. 08/08 continue current medications. clonazepam has been lowered to 0.5mg po TID. abilify has been stopped. continue sertraline. may consider adding propanolol for essential tremors. 08/09 pt reports feeling much calmer, less anxious and depressed mood. She denies SI/HI. MOCA completed , ACL 3.4 showing severe cognitive impairments. Reason for continued inpatient stay Substantial Risk for: inability to function Time Spent With Patient Time: Total time managing care of this patient today ____ minutes.
[2025-08-09 16:43] VITALS: BP 114/62
[2025-08-09 20:00] VITALS: BP 110/56; PULSE 71; RESP 16; TEMP 36.7; O2SAT 98
[2025-08-09] MEDS: traZODone HCL 25 MG HALFTAB 75 MG PO (20:25)
[2025-08-10 08:00] VITALS: BP 101/55; PULSE 77; RESP 17; TEMP 36.5; O2SAT 98
[2025-08-10] MEDS: buPROPion HCl XL 300 MG TAB.ER.24H PO (08:46)
[2025-08-10 08:47] VITALS: BP 101/55
--- NOTE | 2025-08-10 09:20 | P.PNPSI_ITS ---
Subjective Subjective Date of Service: 08/10/25 Reason For Visit: Major Depressive disorder severe Subjective Notes: Conditional Voluntary Interim History: Pt reports she slept well. 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 She reports she feels much better, not anxious nor restless. She is taking medications as prescribed. MOCA completed , ACL 3.4 Medication Compliance: Yes Review of Systems Review of Systems Patient has no acute medical complaints at this time All other systems are reviewed and are negative Mental Status Exam Mental Status Exam Narrative: Appearance: wearing hospital gown, thin, hair slightly unkempt, in NAD Behavior: cooperative Psychomotor: action tremors mostly. not so much resting tremors. Speech: clear, normal rate/rhythm/volume, spontaneous TP: linear TC: having difficulty remembering Mood: better Affect: congruent,constricted SI: denies HI: denies VH/AH: none Delusions: no delusional content Insight/judgment: fair x 2. Memory/cog: alert, oriented x 3. MOCA completed , ACL 3.4 showing severe cognitive impairments. Diagnostics Vital Signs (24Hr): Vital Signs - 24 hr 08/09/25 12:11 08/09/25 16:43 08/09/25 20:00 Temperature 98.1 F Pulse Rate 71 Respiratory Rate 16 Blood Pressure 105/55 L 114/62 110/56 L Pulse Oximetry 98 Oxygen Delivery Method Room Air 08/10/25 08:00 08/10/25 08:47 Temperature 97.7 F Pulse Rate 77 Respiratory Rate 17 Blood Pressure 101/55 L 101/55 L Pulse Oximetry 98 Oxygen Delivery Method Room Air BMI result Body Mass Index 19.2 Labs 08/08/25 07:20 Medications Medications Current Medications Acetaminophen (Acetaminophen 325 Mg Tablet) 650 mg PO Q6H PRN PRN Reason: Headache/Pain, Scale 1-10 Al Hydroxide/Mg Hydroxide (Magnesium Hydrox/Alum Hydrox 30 Ml Oral.Susp) 30 ml PO Q6H PRN PRN Reason: Heartburn/Nausea Bupropion HCl (Bupropion Hcl Xl 300 Mg Tab.Er.24h) 300 mg PO DAILY [facility] Last Admin: 08/10/25 08:46 Dose: 300 mg Clonazepam (Clonazepam 0.5 Mg Tablet) 0.5 mg PO TID [facility] Last Admin: 08/10/25 08:47 Dose: 0.5 mg Ergocalciferol (Ergocalciferol (Vitamin D2) 1,250 Mcg Capsule) 1,250 mcg PO Th@0900 [facility] Last Admin: 08/10/25 08:46 Dose: 1,250 mcg Hydroxyzine HCl (Hydroxyzine Hcl 25 Mg Tablet) 25 mg PO Q6H PRN PRN Reason: mild anxiety Lamotrigine (Lamotrigine 100 Mg Tablet) 100 mg PO BID [facility] Last Admin: 08/10/25 08:46 Dose: 100 mg Magnesium Hydroxide (Milk Of Magnesia 30 Ml Oral.Susp) 30 ml PO DAILY PRN PRN Reason: Constipation Midodrine (Midodrine Hcl 2.5 Mg Tablet) 2.5 mg PO TID@0900,1300,1700 [facility] Last Admin: 08/10/25 08:47 Dose: 2.5 mg Sertraline HCl (Sertraline Hcl 100 Mg Tablet) 200 mg PO DAILY [facility] Last Admin: 08/10/25 08:47 Dose: 200 mg Trazodone HCl (Trazodone Hcl 25 Mg Halftab) 75 mg PO BEDTIME [facility] Last Admin: 08/09/25 20:25 Dose: 75 mg Allergies Allergies Allergy/AdvReac Type Severity Reaction Status Date / Time No Known Allergies Allergy Verified 08/07/25 15:22 Assessment & Plan Assessment & Plan (1) Major depressive disorder: Status: Acute Code(s): F32.9 - Major depressive disorder, single episode, unspecified (2) PTSD (post-traumatic stress disorder): Status: Acute Code(s): F43.10 - Post-traumatic stress disorder, unspecified (3) Major neurocognitive disorder: Status: Acute Code(s): F03.90 - Unspecified dementia, unspecified severity, without behavioral disturbance, psychotic disturbance, mood disturbance, and anxiety Plan Mrs. Mukherjee is a 65 year-old woman with hx of MDD, PTSD who self presented to [facility] after stopping medication as pt reports got confused as to how to take them. Utox was positive for benzo, so clonazepam may have been medication she was taking. She had similar admission to [address] in 01/2025 due to not being able to take medications as prescribed due to cognitive impairments. Pt does have action tremors and although pt reports this is due to anxiety, I do suspect this is due to underlying movement disorder. She has been rpescribed clonazepam 1mg po TID- which I do think is a high dose for pt and we should try to lower it. Also, do wonder if sense of restlessnes is due to akathisia with abilify- need to pace and move. Will stop it. Continue sertraline 200mg po daily. May be worth trial of propanolol for tremors as they seem more essential tremors than parkinsonism. 08/08 continue current medications. clonazepam has been lowered to 0.5mg po TID. abilify has been stopped. continue sertraline. may consider adding propanolol for essential tremors. 08/09 pt reports feeling much calmer, less anxious and depressed mood. She denies SI/HI. MOCA completed , ACL 3.4 showing severe cognitive impairments. 08/10 will try clonazepam BID. added low dose propanolol for essential tremors- as pt often confuses tremors with signs of anxiety and although clonazepam does help for tremors, may not be best first line medication given underlying cognitive impairments. Reason for continued inpatient stay Substantial Risk for: inability to function Time Spent With Patient Time: Total time managing care of this patient today ____ minutes.
[2025-08-10 12:47] VITALS: BMI 19.8
[2025-08-10 13:20] VITALS: BP 100/54
[2025-08-10] MEDS: Milk of Magnesia 30 ML ORAL.SUSP PO (13:42)
[2025-08-10 17:37] VITALS: BP 110/59
[2025-08-10 20:00] VITALS: BP 117/57; PULSE 74; RESP 16; TEMP 36.4; O2SAT 99
[2025-08-10] MEDS: traZODone HCL 25 MG HALFTAB 75 MG PO (20:18)
[2025-08-11 08:00] VITALS: BP 102/51; PULSE 64; RESP 17; TEMP 36.9; O2SAT 98
[2025-08-11 08:17] VITALS: BP 102/51; PULSE 64
[2025-08-11 08:21] VITALS: BP 102/51
[2025-08-11] MEDS: buPROPion HCl XL 300 MG TAB.ER.24H PO (08:21)
--- NOTE | 2025-08-11 08:28 | P.PNPSI_ITS ---
Subjective Subjective Date of Service: 08/11/25 Reason For Visit: Major Depressive disorder severe Subjective Notes: Conditional Voluntary Interim History: Pt reports feeling well. tremors seem less with dose of propanolol. She is taking medications as prescribed. clearly very forgetful from day to day. Sw obtained collateral information from roommate and need for additional supports. Review of Systems Review of Systems Patient has no acute medical complaints at this time All other systems are reviewed and are negative Mental Status Exam Mental Status Exam Narrative: Appearance: wearing hospital gown, thin, hair slightly unkempt, in NAD Behavior: cooperative Psychomotor: action tremors mostly. not so much resting tremors. Speech: clear, normal rate/rhythm/volume, spontaneous TP: linear TC: having difficulty remembering Mood: better Affect: congruent,constricted SI: denies HI: denies VH/AH: none Delusions: no delusional content Insight/judgment: fair x 2. Memory/cog: alert, oriented x 3. MOCA completed , ACL 3.4 showing severe cognitive impairments. Diagnostics Vital Signs (24Hr): Vital Signs - 24 hr 08/10/25 08:47 08/10/25 13:20 08/10/25 17:37 Temperature Pulse Rate Respiratory Rate Blood Pressure 101/55 L 100/54 L 110/59 L Pulse Oximetry Oxygen Delivery Method 08/10/25 20:00 08/11/25 08:17 08/11/25 08:21 Temperature 97.6 F Pulse Rate 74 64 Respiratory Rate 16 Blood Pressure 117/57 L 102/51 L 102/51 L Pulse Oximetry 99 Oxygen Delivery Method Room Air BMI result Body Mass Index 19.8 Labs 08/08/25 07:20 Medications Medications Current Medications Acetaminophen (Acetaminophen 325 Mg Tablet) 650 mg PO Q6H PRN PRN Reason: Headache/Pain, Scale 1-10 Last Admin: 08/10/25 20:24 Dose: 650 mg Al Hydroxide/Mg Hydroxide (Magnesium Hydrox/Alum Hydrox 30 Ml Oral.Susp) 30 ml PO Q6H PRN PRN Reason: Heartburn/Nausea Bupropion HCl (Bupropion Hcl Xl 300 Mg Tab.Er.24h) 300 mg PO DAILY [facility] Last Admin: 08/11/25 08:21 Dose: 300 mg Clonazepam (Clonazepam 0.5 Mg Tablet) 0.5 mg PO BID [facility] Last Admin: 08/11/25 08:21 Dose: 0.5 mg Ergocalciferol (Ergocalciferol (Vitamin D2) 1,250 Mcg Capsule) 1,250 mcg PO Th@0900 [facility] Last Admin: 08/10/25 08:46 Dose: 1,250 mcg Hydroxyzine HCl (Hydroxyzine Hcl 25 Mg Tablet) 25 mg PO Q6H PRN PRN Reason: mild anxiety Lamotrigine (Lamotrigine 100 Mg Tablet) 100 mg PO BID [facility] 234 [facility] Last Admin: 08/11/25 08:21 Dose: 100 mg Magnesium Hydroxide (Milk Of Magnesia 30 Ml Oral.Susp) 30 ml PO DAILY PRN PRN Reason: Constipation Last Admin: 08/10/25 13:42 Dose: 30 ml Midodrine (Midodrine Hcl 2.5 Mg Tablet) 2.5 mg PO TID@0900,1300,1700 [facility] 234 [facility]S [facility] Last Admin: 08/11/25 08:21 Dose: 2.5 mg Polyethylene Glycol (Polyethylene Glycol 3350 17 Gm Powd.Pack) 17 gm PO DAILY PRN PRN Reason: Constipation Propranolol HCl (Propranolol Hcl 10 Mg Tablet) 5 mg PO BID [facility] 234 [facility]S AT [facility]; Protocol Last Admin: 08/11/25 08:17 Dose: 5 mg Sertraline HCl (Sertraline Hcl 100 Mg Tablet) 200 mg PO DAILY [facility] 234 [facility]S [facility] Last Admin: 08/11/25 08:21 Dose: 200 mg Trazodone HCl (Trazodone Hcl 25 Mg Halftab) 75 mg PO BEDTIME [facility] 234 [facility]S AT [facility] Last Admin: 08/10/25 20:18 Dose: 75 mg Allergies Allergies Allergy/AdvReac Type Severity Reaction Status Date / Time No Known Allergies Allergy Verified 08/07/25 15:22 Assessment & Plan Assessment & Plan (1) Major depressive disorder: Status: Acute Code(s): F32.9 - Major depressive disorder, single episode, unspecified (2) PTSD (post-traumatic stress disorder): Status: Acute Code(s): F43.10 - Post-traumatic stress disorder, unspecified (3) Major neurocognitive disorder: Status: Acute Code(s): F03.90 - Unspecified dementia, unspecified severity, without behavioral disturbance, psychotic disturbance, mood disturbance, and anxiety Plan Mrs. Mukherjee is a 65 year-old woman with hx of MDD, PTSD who self presented to [facility] after stopping medication as pt reports got confused as to how to take them. Utox was positive for benzo, so clonazepam may have been medication she was taking. She had similar admission to back in 01/2025 due to not being able to take medications as prescribed due to cognitive impairments. Pt does have action tremors and although pt reports this is due to anxiety, I do suspect this is due to underlying movement disorder. She has been rpescribed clonazepam 1mg po TID- which I do think is a high dose for pt and we should try to lower it. Also, do wonder if sense of restlessnes is due to akathisia with abilify- need to pace and move. Will stop it. Continue sertraline 200mg po daily. May be worth trial of propanolol for tremors as they seem more essential tremors than parkinsonism. 08/08 continue current medications. clonazepam has been lowered to 0.5mg po TID. abilify has been stopped. continue sertraline. may consider adding propanolol for essential tremors. 08/09 pt reports feeling much calmer, less anxious and depressed mood. She denies SI/HI. MOCA completed , ACL 3.4 showing severe cognitive impairments. 08/10 will try clonazepam BID. added low dose propanolol for essential tremors- as pt often confuses tremors with signs of anxiety and although clonazepam does help for tremors, may not be best first line medication given underlying cognitive impairments. 08/11 continue tx. Reason for continued inpatient stay Substantial Risk for: inability to function Time Spent With Patient Time: Total time managing care of this patient today ____ minutes.
[2025-08-11 12:52] VITALS: BP 107/58
[2025-08-11 17:09] VITALS: BP 104/51
[2025-08-11 19:54] VITALS: BP 123/72; PULSE 75; RESP 16; TEMP 36.4; O2SAT 98
[2025-08-11] MEDS: traZODone HCL 25 MG HALFTAB 75 MG PO (20:13)
[2025-08-12 08:00] VITALS: BP 112/59; PULSE 68; TEMP 36.6; O2SAT 96
--- NOTE | 2025-08-12 08:51 | HO.PSYCHPN ---
Subjective Subjective Date of Service: 08/12/25 Reason For Visit: Major Depressive disorder severe Subjective Notes: Conditional Voluntary Interim History: Patient seen. She says she was feeling anxious earlier on today because of feeling overwhelmed when thinking about home and the bills and responsibilities. Medications are helpful. Visible on the unit. Denies SI/HI/AVH. Medication Compliance: Yes Review of Systems Review of Systems Patient has no acute medical complaints at this time All other systems are reviewed and are negative Mental Status Exam Mental Status Exam Narrative: Appearance: wearing hospital gown, thin, hair slightly unkempt, in NAD Behavior: cooperative Psychomotor: action tremors mostly. not so much resting tremors. Speech: clear, normal rate/rhythm/volume, spontaneous TP: linear TC: having difficulty remembering Mood: better Affect: congruent,constricted SI: denies HI: denies VH/AH: none Delusions: no delusional content Insight/judgment: fair x 2. Memory/cog: alert, oriented x 3. MOCA completed , ACL 3.4 showing severe cognitive impairments. Diagnostics Vital Signs (24Hr): Vital Signs - 24 hr 08/11/25 12:52 08/11/25 17:09 08/11/25 19:54 Temperature 97.5 F Pulse Rate 75 Respiratory Rate 16 Blood Pressure 107/58 L 104/51 L 123/72 Pulse Oximetry 98 Oxygen Delivery Method Room Air 08/12/25 08:00 Temperature 97.8 F Pulse Rate 68 Respiratory Rate Blood Pressure 112/59 L Pulse Oximetry 96 Oxygen Delivery Method Room Air BMI result Body Mass Index 19.8 Labs 08/08/25 07:20 Medications Medications Current Medications Acetaminophen (Acetaminophen 325 Mg Tablet) 650 mg PO Q6H PRN PRN Reason: Headache/Pain, Scale 1-10 Last Admin: 08/10/25 20:24 Dose: 650 mg Al Hydroxide/Mg Hydroxide (Magnesium Hydrox/Alum Hydrox 30 Ml Oral.Susp) 30 ml PO Q6H PRN PRN Reason: Heartburn/Nausea Bupropion HCl (Bupropion Hcl Xl 300 Mg Tab.Er.24h) 300 mg PO DAILY [facility] Last Admin: 08/11/25 08:21 Dose: 300 mg Clonazepam (Clonazepam 0.5 Mg Tablet) 0.5 mg PO BID [facility] Last Admin: 08/11/25 20:15 Dose: 0.5 mg Ergocalciferol (Ergocalciferol (Vitamin D2) 1,250 Mcg Capsule) 1,250 mcg PO Th@0900 [facility] Last Admin: 08/10/25 08:46 Dose: 1,250 mcg Hydroxyzine HCl (Hydroxyzine Hcl 25 Mg Tablet) 25 mg PO Q6H PRN PRN Reason: mild anxiety Lamotrigine (Lamotrigine 100 Mg Tablet) 100 mg PO BID [facility] Last Admin: 08/11/25 20:14 Dose: 100 mg Magnesium Hydroxide (Milk Of Magnesia 30 Ml Oral.Susp) 30 ml PO DAILY PRN PRN Reason: Constipation Last Admin: 08/10/25 13:42 Dose: 30 ml Midodrine (Midodrine Hcl 2.5 Mg Tablet) 2.5 mg PO TID@0900,1300,1700 [facility] Last Admin: 08/11/25 17:09 Dose: 2.5 mg Polyethylene Glycol (Polyethylene Glycol 3350 17 Gm Powd.Pack) 17 gm PO DAILY PRN PRN Reason: Constipation Propranolol HCl (Propranolol Hcl 10 Mg Tablet) 5 mg PO BID [facility]; Protocol Last Admin: 08/11/25 20:13 Dose: 5 mg Sertraline HCl (Sertraline Hcl 100 Mg Tablet) 200 mg PO DAILY [facility] Last Admin: 08/11/25 08:21 Dose: 200 mg Trazodone HCl (Trazodone Hcl 25 Mg Halftab) 75 mg PO BEDTIME [facility] Last Admin: 08/11/25 20:13 Dose: 75 mg Allergies Allergies Allergy/AdvReac Type Severity Reaction Status Date / Time No Known Allergies Allergy Verified 08/07/25 15:22 Assessment & Plan Assessment & Plan (1) Major depressive disorder: Status: Acute Code(s): F32.9 - Major depressive disorder, single episode, unspecified (2) PTSD (post-traumatic stress disorder): Status: Acute Code(s): F43.10 - Post-traumatic stress disorder, unspecified (3) Major neurocognitive disorder: Status: Acute Code(s): F03.90 - Unspecified dementia, unspecified severity, without behavioral disturbance, psychotic disturbance, mood disturbance, and anxiety Plan Mrs. Mukherjee is a 65 year-old woman with hx of MDD, PTSD who self presented to [facility] after stopping medication as pt reports got confused as to how to take them. Utox was positive for benzo, so clonazepam may have been medication she was taking. She had similar admission to back in 01/2025 due to not being able to take medications as prescribed due to cognitive impairments. Pt does have action tremors and although pt reports this is due to anxiety, I do suspect this is due to underlying movement disorder. She has been rpescribed clonazepam 1mg po TID- which I do think is a high dose for pt and we should try to lower it. Also, do wonder if sense of restlessnes is due to akathisia with abilify- need to pace and move. Will stop it. Continue sertraline 200mg po daily. May be worth trial of propanolol for tremors as they seem more essential tremors than parkinsonism. 08/08 continue current medications. clonazepam has been lowered to 0.5mg po TID. abilify has been stopped. continue sertraline. may consider adding propanolol for essential tremors. 08/09 pt reports feeling much calmer, less anxious and depressed mood. She denies SI/HI. MOCA completed , ACL 3.4 showing severe cognitive impairments. 08/10 will try clonazepam BID. added low dose propanolol for essential tremors- as pt often confuses tremors with signs of anxiety and although clonazepam does help for tremors, may not be best first line medication given underlying cognitive impairments. 08/12: Continue current management and treatment plan. Reason for continued inpatient stay Substantial Risk for: inability to function Time Spent With Patient Time: Total time managing care of this patient today ____ minutes.
[2025-08-12] MEDS: buPROPion HCl XL 300 MG TAB.ER.24H PO (08:57)
[2025-08-12 14:19] VITALS: BP 100/64
[2025-08-12 14:44] LABS: Vitamin D 25-OH, D2 <4 ng/mL; Vitamin D 25-OH, D3 26 ng/mL; Vitamin D 25-OH, Total 26 ng/mL (30-100)
[2025-08-12 17:11] VITALS: BP 104/62
[2025-08-12 20:00] VITALS: BP 104/61; PULSE 64; RESP 18; TEMP 36.3; O2SAT 100
[2025-08-12 20:18] VITALS: BP 104/51; PULSE 64
[2025-08-12] MEDS: traZODone HCL 25 MG HALFTAB 75 MG PO ×2 (20:19→23:16)
[2025-08-13 08:00] VITALS: BP 108/60; PULSE 73; RESP 18; TEMP 36.3; O2SAT 96
[2025-08-13] MEDS: buPROPion HCl XL 300 MG TAB.ER.24H PO (08:14)
--- NOTE | 2025-08-13 10:13 | P.PNPSI_ITS ---
Subjective Subjective Date of Service: 08/13/25 Reason For Visit: Major Depressive disorder severe Subjective Notes: Conditional Voluntary Interim History: Patient seen. Remains anxious about going home. Says her tremors continue. Has not noticed benefit from Propranolol 5 mg BID. We discuss increasing the dose. Monitor BP and HR before administration. Medications are helpful. Visible on the unit. Denies SI/HI/AVH. Medication Compliance: Yes Review of Systems Review of Systems Patient has no acute medical complaints at this time All other systems are reviewed and are negative Mental Status Exam Mental Status Exam Narrative: Appearance: wearing hospital gown, thin, hair slightly unkempt, in NAD Behavior: cooperative Psychomotor: action tremors mostly. not so much resting tremors. Speech: clear, normal rate/rhythm/volume, spontaneous TP: linear TC: having difficulty remembering Mood: better Affect: congruent,constricted SI: denies HI: denies VH/AH: none Delusions: no delusional content Insight/judgment: fair x 2. Memory/cog: alert, oriented x 3. MOCA completed , ACL 3.4 showing severe cognitive impairments. Diagnostics Vital Signs (24Hr): Vital Signs - 24 hr 08/12/25 14:19 08/12/25 17:11 08/12/25 20:00 Temperature 97.4 F Pulse Rate 64 Respiratory Rate 18 Blood Pressure 100/64 104/62 104/61 Pulse Oximetry 100 Oxygen Delivery Method Room Air 08/12/25 20:18 08/13/25 08:00 Temperature 97.3 F Pulse Rate 64 73 Respiratory Rate 18 Blood Pressure 104/51 L 108/60 Pulse Oximetry 96 Oxygen Delivery Method Room Air BMI result Body Mass Index 19.8 Labs 08/08/25 07:20 Labs: Laboratory Results - last 48 hr 08/08/25 07:20 25-OH Vitamin D Total 26 L 25-Hydroxy Vitamin D2 <4 25-Hydroxy Vitamin D3 26 Medications Medications Current Medications Acetaminophen (Acetaminophen 325 Mg Tablet) 650 mg PO Q6H PRN PRN Reason: Headache/Pain, Scale 1-10 Last Admin: 08/13/25 08:13 Dose: 650 mg Al Hydroxide/Mg Hydroxide (Magnesium Hydrox/Alum Hydrox 30 Ml Oral.Susp) 30 ml PO Q6H PRN PRN Reason: Heartburn/Nausea Bupropion HCl (Bupropion Hcl Xl 300 Mg Tab.Er.24h) 300 mg PO DAILY [facility] Last Admin: 08/13/25 08:14 Dose: 300 mg Clonazepam (Clonazepam 0.5 Mg Tablet) 0.5 mg PO BID [facility] Last Admin: 08/13/25 08:15 Dose: 0.5 mg Ergocalciferol (Ergocalciferol (Vitamin D2) 1,250 Mcg Capsule) 1,250 mcg PO Th@0900 [facility] Last Admin: 08/10/25 08:46 Dose: 1,250 mcg Hydroxyzine HCl (Hydroxyzine Hcl 25 Mg Tablet) 25 mg PO Q6H PRN PRN Reason: mild anxiety Lamotrigine (Lamotrigine 100 Mg Tablet) 100 mg PO BID [facility] Last Admin: 08/13/25 08:15 Dose: 100 mg Magnesium Hydroxide (Milk Of Magnesia 30 Ml Oral.Susp) 30 ml PO DAILY PRN PRN Reason: Constipation Last Admin: 08/10/25 13:42 Dose: 30 ml Midodrine (Midodrine Hcl 2.5 Mg Tablet) 2.5 mg PO TID@0900,1300,1700 [facility] Last Admin: 08/13/25 08:14 Dose: 2.5 mg Polyethylene Glycol (Polyethylene Glycol 3350 17 Gm Powd.Pack) 17 gm PO DAILY PRN PRN Reason: Constipation Propranolol HCl (Propranolol Hcl 10 Mg Tablet) 5 mg PO BID [facility]; Protocol Last Admin: 08/13/25 08:13 Dose: 5 mg Sertraline HCl (Sertraline Hcl 100 Mg Tablet) 200 mg PO DAILY [facility] Last Admin: 08/13/25 08:15 Dose: 200 mg Trazodone HCl (Trazodone Hcl 25 Mg Halftab) 75 mg PO BEDTIME [facility] Last Admin: 08/12/25 23:16 Dose: 75 mg Allergies Allergies Allergy/AdvReac Type Severity Reaction Status Date / Time No Known Allergies Allergy Verified 08/07/25 15:22 Assessment & Plan Assessment & Plan (1) Major depressive disorder: Status: Acute Code(s): F32.9 - Major depressive disorder, single episode, unspecified (2) PTSD (post-traumatic stress disorder): Status: Acute Code(s): F43.10 - Post-traumatic stress disorder, unspecified (3) Major neurocognitive disorder: Status: Acute Code(s): F03.90 - Unspecified dementia, unspecified severity, without behavioral disturbance, psychotic disturbance, mood disturbance, and anxiety Plan Mrs. Mukherjee is a 65 year-old woman with hx of MDD, PTSD who self presented to [facility] after stopping medication as pt reports got confused as to how to take them. Utox was positive for benzo, so clonazepam may have been medication she was taking. She had similar admission to [address] in 01/2025 due to not being able to take medications as prescribed due to cognitive impairments. Pt does have action tremors and although pt reports this is due to anxiety, I do suspect this is due to underlying movement disorder. She has been rpescribed clonazepam 1mg po TID- which I do think is a high dose for pt and we should try to lower it. Also, do wonder if sense of restlessnes is due to akathisia with abilify- need to pace and move. Will stop it. Continue sertraline 200mg po daily. May be worth trial of propanolol for tremors as they seem more essential tremors than parkinsonism. 08/08 continue current medications. clonazepam has been lowered to 0.5mg po TID. abilify has been stopped. continue sertraline. may consider adding propanolol for essential tremors. 08/09 pt reports feeling much calmer, less anxious and depressed mood. She denies SI/HI. MOCA completed , ACL 3.4 showing severe cognitive impairments. 08/10 will try clonazepam BID. added low dose propanolol for essential tremors- as pt often confuses tremors with signs of anxiety and although clonazepam does help for tremors, may not be best first line medication given underlying cognitive impairments. 08/12: Continue current management and treatment plan. 08/13: Increase Propranolol 10 mg BID and monitor BP and HR. continue current management and treatment plan. Reason for continued inpatient stay Substantial Risk for: inability to function Time Spent With Patient Time: Total time managing care of this patient today ____ minutes.
[2025-08-13 12:41] VITALS: BP 98/55; PULSE 67; RESP 16
[2025-08-13 16:38] VITALS: BP 100/56; PULSE 68; RESP 16
[2025-08-13 20:00] VITALS: BP 107/60; PULSE 80; RESP 16; TEMP 37.3; O2SAT 96
[2025-08-13] MEDS: traZODone HCL 25 MG HALFTAB 75 MG PO (20:22)
[2025-08-14 08:28] VITALS: BP 106/60; PULSE 76; RESP 16; TEMP 36.4; O2SAT 97
[2025-08-14] MEDS: buPROPion HCl XL 300 MG TAB.ER.24H PO (08:34)
--- NOTE | 2025-08-14 08:41 | HO.PSYCHPN ---
Subjective Subjective Date of Service: 08/14/25 Reason For Visit: Major Depressive disorder severe Subjective Notes: Conditional Voluntary Interim History: Pt slept through the night. She reports anxiety about returning home and not being able to care for self, which is a reasonable concern given memory/cognitive impairments. Action tremors seem less, pt does report feeling anxious at times, we discussed not increasing clonazepam due to worsening cognition, increase risk for fall. Will lower wellbutrin as this can also exacerbate both essential tremor and anxiety. Continues sertraline 200mg po daily. propanolol was increased over the weekend to 10mg po BID. BP on lower side but stable. BP 106/60, HR 76. Review of Systems Review of Systems Patient has no acute medical complaints at this time All other systems are reviewed and are negative Mental Status Exam Mental Status Exam Narrative: Appearance: wearing hospital gown, thin, hair slightly unkempt, in NAD Behavior: cooperative Psychomotor: action tremors mostly. not so much resting tremors. Speech: clear, normal rate/rhythm/volume, spontaneous TP: linear TC: having difficulty remembering Mood: better Affect: congruent,constricted SI: denies HI: denies VH/AH: none Delusions: no delusional content Insight/judgment: fair x 2. Memory/cog: alert, oriented x 3. MOCA completed , ACL 3.4 showing severe cognitive impairments. Diagnostics Vital Signs (24Hr): Vital Signs - 24 hr 08/13/25 12:41 08/13/25 16:38 08/13/25 20:00 Temperature 99.1 F Pulse Rate 67 68 80 Respiratory Rate 16 16 16 Blood Pressure 98/55 L 100/56 L 107/60 Pulse Oximetry 96 Oxygen Delivery Method Room Air 08/14/25 08:28 Temperature 97.5 F Pulse Rate 76 Respiratory Rate 16 Blood Pressure 106/60 Pulse Oximetry 97 Oxygen Delivery Method Room Air BMI result Body Mass Index 19.8 Labs 08/08/25 07:20 Labs: Laboratory Results - last 48 hr 08/08/25 07:20 25-OH Vitamin D Total 26 L 25-Hydroxy Vitamin D2 <4 25-Hydroxy Vitamin D3 26 Medications Medications Current Medications Acetaminophen (Acetaminophen 325 Mg Tablet) 650 mg PO Q6H PRN PRN Reason: Headache/Pain, Scale 1-10 Last Admin: 08/13/25 21:18 Dose: 650 mg Al Hydroxide/Mg Hydroxide (Magnesium Hydrox/Alum Hydrox 30 Ml Oral.Susp) 30 ml PO Q6H PRN PRN Reason: Heartburn/Nausea Bupropion HCl (Bupropion Hcl Xl 300 Mg Tab.Er.24h) 300 mg PO DAILY [facility] Last Admin: 08/14/25 08:34 Dose: 300 mg Clonazepam (Clonazepam 0.5 Mg Tablet) 0.5 mg PO BID [facility] Last Admin: 08/14/25 08:34 Dose: 0.5 mg Ergocalciferol (Ergocalciferol (Vitamin D2) 1,250 Mcg Capsule) 1,250 mcg PO Th@0900 [facility] Last Admin: 08/10/25 08:46 Dose: 1,250 mcg Hydroxyzine HCl (Hydroxyzine Hcl 25 Mg Tablet) 25 mg PO Q6H PRN PRN Reason: mild anxiety Last Admin: 08/13/25 13:39 Dose: 25 mg Lamotrigine (Lamotrigine 100 Mg Tablet) 100 mg PO BID [facility] Last Admin: 08/14/25 08:34 Dose: 100 mg Magnesium Hydroxide (Milk Of Magnesia 30 Ml Oral.Susp) 30 ml PO DAILY PRN PRN Reason: Constipation Last Admin: 08/10/25 13:42 Dose: 30 ml Midodrine (Midodrine Hcl 2.5 Mg Tablet) 2.5 mg PO TID@0900,1300,1700 [facility] Last Admin: 08/14/25 08:34 Dose: 2.5 mg Polyethylene Glycol (Polyethylene Glycol 3350 17 Gm Powd.Pack) 17 gm PO DAILY PRN PRN Reason: Constipation Propranolol HCl (Propranolol Hcl 10 Mg Tablet) 10 mg PO BID [facility]; Protocol Last Admin: 08/14/25 08:34 Dose: 10 mg Sertraline HCl (Sertraline Hcl 100 Mg Tablet) 200 mg PO DAILY [facility] Last Admin: 08/14/25 08:34 Dose: 200 mg Trazodone HCl (Trazodone Hcl 25 Mg Halftab) 75 mg PO BEDTIME [facility] Last Admin: 08/13/25 20:22 Dose: 75 mg Allergies Allergies Allergy/AdvReac Type Severity Reaction Status Date / Time No Known Allergies Allergy Verified 08/07/25 15:22 Assessment & Plan Assessment & Plan (1) Major depressive disorder: Status: Acute Code(s): F32.9 - Major depressive disorder, single episode, unspecified (2) PTSD (post-traumatic stress disorder): Status: Acute Code(s): F43.10 - Post-traumatic stress disorder, unspecified (3) Major neurocognitive disorder: Status: Acute Code(s): F03.90 - Unspecified dementia, unspecified severity, without behavioral disturbance, psychotic disturbance, mood disturbance, and anxiety Plan Mrs. Mukherjee is a 65 year-old woman with hx of MDD, PTSD [facility] medication as pt reports got confused as to how to take them. Utox was positive for benzo, so clonazepam may have been medication she was taking. She had similar admission to [address] in 01/2025 due to not being able to take medications as prescribed due to cognitive impairments. Pt does have action tremors and although pt reports this is due to anxiety, I do suspect this is due to underlying movement disorder. She has been rpescribed clonazepam 1mg po TID- which I do think is a high dose for pt and we should try to lower it. Also, do wonder if sense of restlessnes is due to akathisia with abilify- need to pace and move. Will stop it. Continue sertraline 200mg po daily. May be worth trial of propanolol for tremors as they seem more essential tremors than parkinsonism. 08/08 continue current medications. clonazepam has been lowered to 0.5mg po TID. abilify has been stopped. continue sertraline. may consider adding propanolol for essential tremors. 08/09 pt reports feeling much calmer, less anxious and depressed mood. She denies SI/HI. MOCA completed , ACL 3.4 showing severe cognitive impairments. 08/10 will try clonazepam BID. added low dose propanolol for essential tremors- as pt often confuses tremors with signs of anxiety and although clonazepam does help for tremors, may not be best first line medication given underlying cognitive impairments. 08/12: Continue current management and treatment plan. 08/13: Increase Propranolol 10 mg BID and monitor BP and HR. continue current management and treatment plan. 08/14 lowered wellbutrin to 150mg po daily, as it can increase anxious mood and worsened essetial tremors. trying not to increase clonazepam dose of 0.5mg po BID. Continue sertraline 200mg po daily. Lamictal 100mg po BID. No behavioral concerns. stable, plan to d/c on 08/15/2025. Reason for continued inpatient stay Substantial Risk for: inability to function Time Spent With Patient Time: Total time managing care of this patient today ____ minutes.
[2025-08-14 12:31] VITALS: BP 98/57; PULSE 70; RESP 18
--- NOTE | 2025-08-14 15:23 | P.PNIM_ITS ---
Subjective Subjective Date of Service: 08/14/25 Interval History: Patient is seen for bilateral lower extremity edema. She denies shortness of breath, dizziness, lightheadedness, headaches, chest pain or any other concerning symptoms. She feels well, plans to discharge tomorrow. Encouraged leg elevation and avoiding salt. Review of Systems Denies any shortness of breath, chest pain, headaches, dysuria, abdominal pain or discomfort, nausea, vomiting or diarrhea. Denies fever or chills. Physical Exam 2 Exam: Exam: Alert and oriented X3, calm and cooperative. Answers questions. Neuro: CN II-X11 intact, no deficits, visual acuity intact. Cardiac: S1 S2 RRR, No ectopy Pulmonary: Lungs clear to auscultation, No increased WOB. Abdominal: BS active in all 4 quadrants, no guarding or tenderness MSK: Strength 5/5 upper and lower extremities : Deferred Extremities: Trace edema in lower extremities. Psych: Mood stable, Quiet and cooperative. Skin: Warm and dry, Intact Vital Signs: Vital Signs: Last Vital Signs Temp 97.5 F 08/14/25 08:28 Pulse 70 08/14/25 12:31 Resp 18 08/14/25 12:31 BP 98/57 L 08/14/25 12:31 Pulse Ox 97 08/14/25 08:28 O2 Del Method Room Air 08/14/25 08:28 BMI result Body Mass Index 19.8 Objective Data Active Medications Acetaminophen (Acetaminophen 325 Mg Tablet) 650 mg PO Q6H PRN PRN Reason: Headache/Pain, Scale 1-10 Last Admin: 08/14/25 13:54 Dose: 650 mg Documented By: DON Al Hydroxide/Mg Hydroxide (Magnesium Hydrox/Alum Hydrox 30 Ml Oral.Susp) 30 ml PO Q6H PRN PRN Reason: Heartburn/Nausea Bupropion HCl (Bupropion Hcl Xl 150 Mg Tab.Er.24h) 150 mg PO DAILY [facility] Clonazepam (Clonazepam 0.5 Mg Tablet) 0.5 mg PO BID [facility] Last Admin: 08/14/25 08:34 Dose: 0.5 mg Documented By: JEN Ergocalciferol (Ergocalciferol (Vitamin D2) 1,250 Mcg Capsule) 1,250 mcg PO Th@0900 [facility] Last Admin: 08/10/25 08:46 Dose: 1,250 mcg Documented By: MARGARET Hydroxyzine HCl (Hydroxyzine Hcl 25 Mg Tablet) 25 mg PO Q6H PRN PRN Reason: mild anxiety Last Admin: 08/14/25 12:42 Dose: 25 mg Documented By: RUPERTO Lamotrigine (Lamotrigine 100 Mg Tablet) 100 mg PO BID [facility] Last Admin: 08/14/25 08:34 Dose: 100 mg Documented By: JEN Magnesium Hydroxide (Milk Of Magnesia 30 Ml Oral.Susp) 30 ml PO DAILY PRN PRN Reason: Constipation Last Admin: 08/10/25 13:42 Dose: 30 ml Documented By: MARGARET Midodrine (Midodrine Hcl 2.5 Mg Tablet) 2.5 mg PO TID@0900,1300,1700 [facility] Last Admin: 08/14/25 12:33 Dose: 2.5 mg Documented By: RUPERTO Polyethylene Glycol (Polyethylene Glycol 3350 17 Gm Powd.Pack) 17 gm PO DAILY PRN PRN Reason: Constipation Propranolol HCl (Propranolol Hcl 10 Mg Tablet) 10 mg PO BID [facility]; Protocol Last Admin: 08/14/25 08:34 Dose: 10 mg Documented By: JEN Sertraline HCl (Sertraline Hcl 100 Mg Tablet) 200 mg PO DAILY [facility] Last Admin: 08/14/25 08:34 Dose: 200 mg Documented By: JEN Trazodone HCl (Trazodone Hcl 25 Mg Halftab) 75 mg PO BEDTIME [facility] Last Admin: 08/13/25 20:22 Dose: 75 mg Documented By: ASHLEE Labs 08/08/25 07:20 Assessment and Plan (1) Edema: Status: Acute Plan 65-year-old female with past medical history listed below presented to the [facility] ED with increased anxiety and SI. Now admitted for inpatient stabilization. Anxiety/depression/SI Treatment per psychiatric team Hypotension Currently asymptomatic Continue on midodrine t.i.d. Lower extremity edema Encourage elevation of feet, decrease salt intake Can follow up with primary care Stage IIIA CKD Labs consistent with stage 3 chronic kidney disease Avoid nephrotoxins. Tobacco misuse Encouraged smoking cessation, NRT if needed Thank you for allowing me to participate in the care of this patient. Will follow with you, please notify medical provider with any changes in condition or concerns. Quality Stroke Does the patient have a stroke diagnosis?: No VTE Prior VTE?: No VTE Risk Level:: Medical - low VTE Device Contraindication: Treatment Not Indicated VTE Drug Contraindication: Treatment Not Indicated
[2025-08-14 16:36] VITALS: BP 104/55; PULSE 68
[2025-08-14 20:00] VITALS: BP 103/67; PULSE 70; RESP 18; TEMP 37; O2SAT 97
[2025-08-14] MEDS: traZODone HCL 25 MG HALFTAB 75 MG PO (20:58)
[2025-08-15 08:00] VITALS: BP 114/63; PULSE 83; RESP 18; TEMP 36.4; O2SAT 96
--- NOTE | 2025-08-15 08:10 | PM.PSYDC ---
DS: Providers Provider Date of admission: 08/07/25 14:37 Date of discharge: 08/15/25 Primary care physician: Unknown Physician Consults: 08/07/25 15:02 Consult to Hospitalist Routine Comment: Consulting Provider: [facility] Hospitalists Reason For Exam: medical H&P 08/14/25 09:42 Consult to Hospitalist Routine Comment: Consulting Provider: Hilda Mejia Reason For Exam: bilat LE swelling Discharging clinician: Carol Lee DS: Diagnosis Discharge Diagnosis (1) Edema: Status: Acute DS: Medications Discharge Medications Home Medications: Previous Rx's ?Medication ?Instructions ?Recorded acetaminophen 325 mg tablet 650 mg (2 x 325 mg) PO Q6H PRN 02/17/25 Headache/Pain, Scale 1-10 #0 tabs aripiprazole 5 mg tablet (Abilify) 5 mg PO DAILY #0 tabs 02/17/25 bupropion HCl 300 mg 24 hr tablet, 300 mg PO DAILY #30 tabs 02/17/25 extended release clonazepam 1 mg tablet 1 mg PO TID PRN Anxiety #21 tabs 02/17/25 lamotrigine 150 mg tablet 150 mg PO BID #60 tabs 02/17/25 lamotrigine 25 mg tablet 25 mg PO BID #60 tabs 02/17/25 midodrine 2.5 mg tablet 2.5 mg PO TIDWM #90 tabs 02/17/25 mirtazapine 15 mg tablet 15 mg PO BEDTIME #30 tabs 02/17/25 sertraline 100 mg tablet 200 mg (2 x 100 mg) PO DAILY #60 02/17/25 tabs trazodone 50 mg tablet 50 mg PO BEDTIME #30 tabs 02/17/25 Mental Status Exam Mental Status Exam Narrative: Appearance: wearing hospital gown, thin, hair slightly unkempt, in NAD Behavior: cooperative Psychomotor: action tremors mostly. not so much resting tremors. Speech: clear, normal rate/rhythm/volume, spontaneous TP: linear TC: having difficulty remembering Mood: better Affect: congruent,constricted SI: denies HI: denies VH/AH: none Delusions: no delusional content Insight/judgment: fair x 2. Memory/cog: alert, oriented x 3. MOCA completed , ACL 3.4 showing severe cognitive impairments. Data Data Completed and Pending Completed studies during hospitalization [Text1]: 08/08/25 07:20 Vitamin B12 381 25-OH Vitamin D Total 26 L 25-Hydroxy Vitamin D2 <4 25-Hydroxy Vitamin D3 26 DS: Summary Hospital Course Hospital Course: Ms. Mukherjee is a 65 year-old woman with hx of MDD, anxiety who self presented to [facility] ED reporting increase depressed mood and SI without a plan in setting of not taking medications as she is confused as to how to take them. Pertinent labs completed in the ED include utox positive for benzodiazepines. CBC unremarkable. CMP without electrolyte abnormalities, BUN 27, Cr 1.09, creatinine clearance 56, LFTs wnl with elevated Alk phos 122. UA did not show signs of UTI. Of note, pt had an inpt admission to back in 01/2025 also due to stopping medications as she was confused as to how to take them which then led to her feeling more depressed. On the unit, pt reports she feels better today. She reports she has anxious mood and feels restless at times. She does have action tremors which pt reports for her are a sign of anxiety, although she reports these are new. She reports she also feels restless at times and can't stay still. She denies SI/HI. She reports she has struggled with depression and anxiety for a very long time. She reports she has never tried to hurt herself. No hx of VH/AH. No delusional content noted or reported. Past Psychiatric History: IP: M5 01/2025 depression/anxious mood/SI. OP: [facility]- Ann Kitchen MD, Malia Cardenas Trials: wellbutrin, effexor, lamictal, clonazepam, sertraline. Medical Evaluation Reviewed: Yes HOSPITAL COURSE On the unit, pt was admitted to S1 on CV and placed on 15 minutes checks for safety. Pt was restarted initially on all medications she had been prescribed in the community including clonazepam 1mg po TID, sertraline 200mg po daily, wellbutrin 300mg po daily. We discussed concern in terms of high dose of clonazepam worsening underlying cognitive/memory impairments but also as pt noticed to have essential tremors, which she often saw as measure of her anxiety even when subjectively reports she was feeling calmer. Clonazepam was gradually decreased to 0.5mg po BID. She was started on propanolol for essential tremors with some effect, currenty on 10mg po BID. She had reported continued anxious mood although in terms of depression reported feeling much better. We decreased wellbutrin as it can contribute to both anxious mood and tremors. She was continued on lamictal. She denied SI/HI. Pt was noted to be very forgetful from day to day often not remembering meeting with treatment team or information discussed. She had a MOCA completed which scored 13/30 showing significant impairment in executive function, visuospatial, recall, language repetition and fluency and abstraction. Her orientation is fairly intact. Showing a vascular type of cognitive impairment. ACL also showed severe cognitive impairments with a score of 3.4 requiring close supervision, little awareness of cause and effect, end product or goal. Pt keeps coming to the hospital due to confusion as to how to take her medications and these scores show why she is having so much difficulty at home managing medications and coordinating care for herself. She was sleeping through the night. She was eating well. There were no incidences of disruptive behaviors nor need for restraints. She did have mild bilat lower extremity edema. Needs to follow up with PCP about this. Status at Discharge Cognitive/behavioral status at discharge: Pt calmer, no SI/HI. No psychosis or delusions. Sleeping and eating well. Less action tremors. No behavioral concerns. Functional status at discharge: independent ambulation Overall status at discharge: patient is back to baseline Time Spent with Patient Time attestation: Total time managing care of this patient today ___45_ minutes. Time spent: Greater than 30 minutes Discharge Plan Discharge Anticipated Discharge Date/Time: 08/15/25 09:16 Patient Disposition: Home, Self-Care Discharge Diagnosis: MDD, JONAH, Major Neurocognitive disorder Referrals: [facility] [Other] - 08/22/25 9:30 am Referral Note: Your next appointment with your PCP is scheduled for 08/22/25 at 9:30am. [facility]: [facility] [Other] - 09/14/25 10:00 am Referral Note: Your next medication management psychiatry appointment is scheduled for 09/14/25 at 10am. [facility]: [facility] [Other] - 08/16/25 2:00 pm Referral Note: your next therapy appointment is schedule for 2pm telehealth on 08/16/25. [facility] [Other] - 08/15/25 Referral Note: You will have [facility] and they will restart for medication management/ education on 08/15. Please be available for their visit. [facility] [Other] - 08/15/25 Referral Note: Your [facility] Karina Cowart: ext [phone] and your services will resume upon discharge. [facility] [Other] - 1 Week Referral Note: Your behavioral health pillowcase cutter will contact you once you discharge home. Her number is [phone] if you need to contact her directly. Discharge Medications: New midodrine 2.5 mg Tablet 2.5 mg PO TID@0900,1300,1700 Qty: 90 0RF propranolol 10 mg Tablet 10 mg PO BID Qty: 60 0RF Protocol: Hold for SBP/HR < HOLD for SBP < : 90 HOLD for HR < : 60 bupropion HCl 150 mg Tablet Extended Release 24 Hr 150 mg PO DAILY Qty: 30 0RF clonazepam 0.5 mg Tablet 0.5 mg PO BID Qty: 60 0RF lamotrigine 100 mg Tablet 100 mg PO BID Qty: 60 0RF sertraline 100 mg Tablet 200 mg PO DAILY Qty: 60 0RF trazodone 150 mg tablet 75 mg PO BEDTIME 15 Days Qty: 8 0RF ergocalciferol (vitamin D2) [Vitamin D2] 1,250 mcg (50,000 unit) Capsule 1,250 mcg PO Th@0900 Qty: 4 0RF Continued midodrine 2.5 mg Tablet 2.5 mg PO TIDWM Qty: 90 0RF Discontinued acetaminophen 325 mg Tablet 650 mg PO Q6H PRN (Reason: Headache/Pain, Scale 1-10) Qty: 0 0RF aripiprazole [Abilify] 5 mg Tablet 5 mg PO DAILY Qty: 0 0RF bupropion HCl 300 mg Tablet Extended Release 24 Hr 300 mg PO DAILY Qty: 30 0RF clonazepam 1 mg Tablet 1 mg PO TID PRN (Reason: Anxiety) Qty: 21 4RF mirtazapine 15 mg Tablet 15 mg PO BEDTIME Qty: 30 0RF sertraline 100 mg Tablet 200 mg PO DAILY Qty: 60 0RF trazodone 50 mg Tablet 50 mg PO BEDTIME Qty: 30 0RF lamotrigine 150 mg Tablet 150 mg PO BID Qty: 60 0RF lamotrigine 25 mg Tablet 25 mg PO BID Qty: 60 0RF Discharge Orders: Discharge Order (Routine); Ordered 08/15/25 Ordered By: Carol Lee Diet: Regular diet Activity on Discharge: As tolerated Stand Alone Forms: Patient Portal Discharge page Print Language: German Care Plan Goals: maintain mood No SI/HI Health Concerns: Follow up with PCP for routine. Plan of Treatment: 1. Medications have to be given and managed by either visiting nurse or family/friends. 2. Go to nearest ED or call 911 in event of emergency Assessment: Pt with less anxious mood but worried about returning home and her ability to care for self. No SI/HI. No VH/AH. Sleeping well. No aggression towards self or others. Severe memory/cognitive impairments affecting her ability to retain new information, executive function.
[2025-08-15] MEDS: buPROPion HCl XL 150 MG TAB.ER.24H PO (08:51)
[2025-08-15 12:26] VITALS: BP 105/60
== END 2025-08-15 14:00 | disposition home or self-care (01) | DRG 881 ==
PROVIDERS: Social Worker; Admitting Provider Psychiatry & Neurology Forensic Psychiatry; Visit Provider Psychiatry & Neurology Forensic Psychiatry
DX: F32.9 Major depressive disorder, single episode, unspecified (principal); R45.851 Suicidal ideations; I95.9 Hypotension, unspecified; F41.1 Generalized anxiety disorder; N18.31 Chronic kidney disease, stage 3a; F03.90 Unspecified dementia, unspecified severity, without behavioral disturbance, psychotic disturbance, mood disturbance, and anxiety; F43.10 Post-traumatic stress disorder, unspecified; Z91.148 Patient's other noncompliance with medication regimen for other reason; Z79.899 Other long term (current) drug therapy
CPT/HCPCS: 36415; 80053; 80061; 82306; 82607; 83036; 84439; 84443

== ENCOUNTER → 2025-08-07 14:37 | Outpatient (BNV) | payer OTHER, SELFPAY | PROVIDERS: Admitting Provider Psychiatry & Neurology Forensic Psychiatry; Visit Provider Social Worker | DX: F32.9 Major depressive disorder, single episode, unspecified (principal); F43.10 Post-traumatic stress disorder, unspecified; F03.90 Unspecified dementia, unspecified severity, without behavioral disturbance, psychotic disturbance, mood disturbance, and anxiety | CPT/HCPCS: 90792; 99231; 99232; 99239 ==

== ENCOUNTER → 2025-08-07 14:37 | Outpatient (BNV) | payer OTHER, SELFPAY | PROVIDERS: Admitting Provider Psychiatry & Neurology Forensic Psychiatry; Visit Provider Nurse Practitioner Family | DX: R60.9 Edema, unspecified (principal) | CPT/HCPCS: 99221; 99231 ==